=== PATIENT | female | born 2000 | race Caucasian/White ===

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

== ENCOUNTER 2019-01-03 15:40 | Outpatient (CLI) | payer OTHER ==
--- NOTE | 2019-01-03 16:37 | XRAY Report ---
Reason: LOW BACK PAIN Procedure Date: 01/03/2019 Accession Number: [id number] / [id number] Procedure: WCP - Lumbar Spine 2 View CPT Code: FULL RESULT: EXAM: LUMBOSACRAL SPINE RADIOGRAPHY EXAM DATE: 01/03/2019 03:47 PM. CLINICAL HISTORY: LOW BACK PAIN. COMPARISONS: Reformatted images CT abdomen and pelvis 02/08/2018 TECHNIQUE: 2 views. FINDINGS: Alignment: Normal. No spondylolisthesis or scoliosis. Bones: No fractures or bone lesions. Disks: Disk heights are maintained. Facets: No degenerative changes. Sacroiliac Joints: Unremarkable. Soft Tissues: Copious fecal material throughout the colon. IMPRESSION: Negative 2 view lumbar spine radiography. Copious fecal material throughout the colon. RADIA
== END 2019-01-03 15:41 | disposition home or self-care (01) ==
LOC: DI.WCP 15:40
PROVIDERS: ATTEND Family Medicine
DX: M54.5 Low back pain (principal)
CPT/HCPCS: 72100

== ENCOUNTER 2019-03-20 08:40 | Outpatient (CLI) | payer OTHER ==
[2019-03-20 19:15] LABS: H. PYLORIS ANTIGEN STL NEGATIVE (Negative)
== END 2019-03-20 08:41 | disposition home or self-care (01) ==
LOC: LAB.R 08:40
PROVIDERS: ATTEND Family Medicine
DX: R19.7 Diarrhea, unspecified (principal)
CPT/HCPCS: 81599; 83630; 87045; 87046; 87177; 87209; 87329; 87338; 87493

== ENCOUNTER 2019-03-22 14:58 | Emergency (ER) | payer OTHER ==
[2019-03-22 15:32] LABS: BASOPHILS % (AUTO) 0.8 %; EOSINOPHILS # (AUTO) 0.1 10^3/uL (0.0-0.7); EOSINOPHILS % (AUTO) 2.4 %; HGB - HEMOGLOBIN 13.6 g/dL (12.0-16.0); LYMPHOCYTES # (AUTO) 1.7 10^3/uL (1.5-3.5); LYMPHOCYTES % (AUTO) 34.8 %; MEAN CORPUSCULAR HEMOGLOBIN 30.6 pg (27.0-31.0); MEAN CORPUSCULAR HGB CONC 33.9 g/dL (32.0-36.0); MEAN CORPUSCULAR VOLUME 90.3 fL (81.0-99.0); MEAN PLATELET VOLUME 7.4 fL (7.9-10.8); MONOCYTES # (AUTO) 0.4 10^3/uL (0.0-1.0); MONOCYTES % (AUTO) 7.5 %; NEUTROPHILS # (AUTO) 2.6 10^3/uL (1.5-6.6); NEUTROPHILS % (AUTO) 54.5 %; PLT - PLATELET COUNT 273 10^3/uL (130-450); RED BLOOD COUNT 4.43 10^6/uL (4.20-5.40); RED CELL DISTRIBUTION WIDTH 12.4 % (12.0-15.0); WHITE BLOOD COUNT 4.8 x10^3/uL (4.8-10.8)
[2019-03-22 15:34] LABS: BILIRUBIN,URINE NEGATIVE (NEGATIVE); GLUCOSE, URINE (UA) NEGATIVE (NEGATIVE); KETONES,URINE (UA) NEGATIVE (NEGATIVE); LEUKOCYTE ESTERASE, URINE NEGATIVE (NEGATIVE); NITRITE,URINE NEGATIVE (NEGATIVE); OCCULT BLOOD,URINE SMALL (NEGATIVE); PH,URINE 6.5 PH (5.0-7.5); PROTEIN,URINE NEGATIVE (NEGATIVE); UROBILINOGEN,URINE 0.2 (NORMAL) E.U./dL (NORMAL)
[2019-03-22 15:36] LABS: CLARITY,URINE CLEAR (CLEAR)
[2019-03-22 15:42] LABS: HCG UR QUAL NEGATIVE
[2019-03-22 15:47] LABS: BACTERIA,URINE Few /HPF (None Seen); MUCUS,URINE Few Strands; RBC,URINE 0-5 /HPF (0-5); SQUAMOUS EPITHELIAL CELL,UR FEW Squamous (<= Few)
[2019-03-22 15:48] LABS: ALBUMIN 4.8 g/dL (3.2-5.5); ALBUMIN/GLOBULIN RATIO 1.3 (1.0-2.2); BILIRUBIN,TOTAL 0.8 mg/dL (0.2-1.0); CALCIUM 9.9 mg/dL (8.5-10.3); CREATININE 0.6 mg/dL (0.4-1.0); TOTAL PROTEIN 8.5 g/dL (6.7-8.2)
--- NOTE | 2019-03-22 16:09 | ED Physician Documentation ---
PD HPI ABD PAIN - Stated complaint Stated Complaint: LRQ PX - Chief complaint Chief Complaint: Abd Pain - History obtained from History obtained from: Patient - History of Present Illness Timing - onset: Today (abrupt onset this morning of RLQ abd pain.) Timing - duration: Hours (7-8) Timing - details: Abrupt onset, Still present Quality: Cramping, Aching, Pain Location: RLQ Radiation: Lower back (had had lower back pain for several days). No: Right flank Improved by: Laying still. No: Eating, Position Worsened by: Moving, Palpation. No: Eating, Breathing, Position Associated symptoms: Nausea, Vomiting, Diarrhea (few episodes of loose stool today). No: Fever, Dysuria, Vaginal bleeding, Vaginal dc Similar symptoms before: Has not had sx before (has recurrent lower abd and pelvic pains due to endometriosis, with prior laparoscopy in [place], with multiple sites ablated. Is on waiting list to see a specialist in [place] about repeat surgery; their appt is in August.) Review of Systems Constitutional: denies: Fever, Chills : reports: LMP (6-7 months ago due to oral hormones (purposefully suppressing menses).). denies: Dysuria, Frequency, Discharge Skin: denies: Rash, Lesions Musculoskeletal: reports: Back pain (for few days). denies: Neck pain Neurologic: denies: Generalized weakness, Focal weakness, Numbness, Near syncope PD PAST MEDICAL HISTORY - Past Medical History Past Medical History: Yes Respiratory: Asthma Endocrine/Autoimmune: None Psych: Depression Other Past Medical History: endometrosis - Past Surgical History Past Surgical History: No HEENT: Myringotomy (tubes) - Present Medications Home Medications: Ambulatory Orders Medication Instructions Recorded Confirmed Albuterol [Ventolin Hfa] 2 puffs INH Q4HR PRN 06/06/14 12/25/15 Fluoxetine HCl [Prozac] 40 mg PO DAILY 08/14/15 12/25/15 Montelukast Sodium [Singulair] 10 mg PO DAILY 08/14/15 12/25/15 Neomycin/Polymyx/Hc Otic Drops 4 drops OT TID #1 bottle 01/31/18 [Cortisporin Ear Susp] Ondansetron Odt [Zofran] 4 mg TL Q6H PRN #20 tablet 02/06/18 Ondansetron Odt [Zofran] 4 mg TL Q6H PRN #10 tablet 02/08/18 Cephalexin [Keflex] 500 mg PO TID #30 capsule 03/22/19 Hydrocodone/Acetaminophen [[place] 1 each PO Q6H PRN #20 tablet 03/22/19 5-325 Tablet] Ondansetron Odt [Zofran] 4 mg TL Q6H PRN #10 tablet 03/22/19 - Allergies Allergies/Adverse Reactions: Allergies Allergy/AdvReac Type Severity Reaction Status Date / Time No Known Drug Allergies Allergy Verified 02/05/18 20:14 - Social History Does the pt smoke?: No Smoking Status: Never smoker Does the pt drink ETOH?: Yes Does the pt have substance abuse?: No - Immunizations Immunizations are current?: Yes - POLST Patient has POLST: No PD ED PE NORMAL - Vitals Vital signs reviewed: Yes - General General: Alert and oriented X 3, Well developed/nourished, Other (appears in considerable pain.) - Neck Neck: Supple, no meningeal sign, No adenopathy - Cardiac Cardiac: RRR, No murmur - Respiratory Respiratory: Clear bilaterally - Abdomen Abdomen: Normal bowel sounds, Soft, Non distended, No organomegaly, Other (tender RLQ with local guarding and some percussion tenderness. no rebound tenderness. ) - Female Female : Deferred - Rectal Rectal: Deferred - Back Back: No spinal TTP, Other (mild CVA tenderness bilaterally.) - Derm Derm: Normal color, Warm and dry, No rash Results - Vitals Vitals: Vital Signs - 24 hr 03/22/19 03/22/19 03/22/19 15:02 16:45 17:45 Temperature 36.8 C Heart Rate 68 72 76 Respiratory 16 14 14 Rate Blood Pressure 114/59 L 112/67 112/64 O2 Saturation 99 97 99 03/22/19 03/22/19 19:20 21:21 Temperature 36.7 C Heart Rate 81 80 Respiratory 14 16 Rate Blood Pressure 117/51 L 119/60 O2 Saturation 97 100 Oxygen O2 Source Room air - Labs Labs: Laboratory Tests 03/22/19 03/22/19 03/22/19 15:25 15:25 15:27 WBC 4.8 RBC 4.43 Hgb 13.6 Hct 40.0 MCV 90.3 MCH 30.6 MCHC 33.9 RDW 12.4 Plt Count 273 MPV 7.4 L Neut # (Auto) 2.6 Lymph # (Auto) 1.7 [place] # (Auto) 0.4 Eos # (Auto) 0.1 Baso # (Auto) 0.0 Absolute Nucleated RBC 0.00 Nucleated RBC % 0.0 Sodium Potassium Chloride Carbon Dioxide Anion Gap BUN Creatinine Estimated GFR (MDRD) Glucose Calcium Total Bilirubin AST ALT Alkaline Phosphatase Total Protein Albumin Globulin Albumin/Globulin Ratio Lipase Urine Color YELLOW Urine Clarity CLEAR Urine pH 6.5 Ur Specific [place] 1.010 1.010 Urine Protein NEGATIVE Urine Glucose (UA) NEGATIVE Urine Ketones NEGATIVE Urine Occult Blood SMALL H Urine Nitrite NEGATIVE Urine Bilirubin NEGATIVE Urine Urobilinogen 0.2 (NORMAL) Ur Leukocyte Esterase NEGATIVE Urine RBC 0-5 Urine WBC 4-5 Ur Squamous Epith Cells FEW Squamous Urine Bacteria Few Urine Mucus Few Strands Ur Microscopic Review INDICATED Urine Culture Comments NOT INDICATED Urine HCG, Qual NEGATIVE 03/22/19 15:27 WBC RBC Hgb Hct MCV MCH MCHC RDW Plt Count MPV Neut # (Auto) Lymph # (Auto) [place] # (Auto) Eos # (Auto) Baso # (Auto) Absolute Nucleated RBC Nucleated RBC % Sodium 141 Potassium 4.1 Chloride 102 Carbon Dioxide 27 Anion Gap 12.0 BUN 12 Creatinine 0.6 Estimated GFR (MDRD) 129 Glucose 90 Calcium 9.9 Total Bilirubin 0.8 AST 17 ALT 10 Alkaline Phosphatase 38 L Total Protein 8.5 H Albumin 4.8 Globulin 3.7 Albumin/Globulin Ratio 1.3 Lipase 27 Urine Color Urine Clarity Urine pH Ur Specific [place] Urine Protein Urine Glucose (UA) Urine Ketones Urine Occult Blood Urine Nitrite Urine Bilirubin Urine Urobilinogen Ur Leukocyte Esterase Urine RBC Urine WBC Ur Squamous Epith Cells Urine Bacteria Urine Mucus Ur Microscopic Review Urine Culture Comments Urine HCG, Qual - Rads (name of study) pelvic and abd U/S Radiology: Prelim report reviewed (normal ovaries and uterus. IUD in place. ), EMP read contemporaneously, See rad report abd/pelvic CT Radiology: Prelim report reviewed (normal appendix. No hydronephrosis nor signs of stones. There is variable dye patchy in both kidneys c/w pyelonephritis.), See rad report PD MEDICAL DECISION MAKING - ED course Complexity details: reviewed results (Pelvic U/S is normal, and abd US did not see appendix. Still no answer, so discussed with pt/mom and will get CT scan. This did not show abrupt change. There is finding c/w pyelonephritis and will treat for that. UA is not positive though. I still don't know if that accounts for pain today. Consider endometrioma on bowel giving the pain and diarrhea. ALternatively, viral GE but symptoms seem extreme for that. ), considered differential (considerable pain RLQ: consider stone, UTI, ovarian cyst/torsion/rupture, appy, endometriosal implant on bowel, perforation as some possibiliites. ), d/w patient Departure - Departure Disposition: Home, Self Care Clinical Impression: Pyelonephritis, Endometriosis Abdominal pain Qualifiers: Abdominal location: right lower quadrant Qualified Code(s): R10.31 - Right lower quadrant pain Vomiting Qualifiers: Vomiting type: unspecified Vomiting Intractability: non-intractable Nausea presence: with nausea Qualified Code(s): R11.2 - Nausea with vomiting, unspecified Diarrhea Qualifiers: Diarrhea type: unspecified type Qualified Code(s): R19.7 - Diarrhea, unspecified Condition: Stable Record reviewed to determine appropriate education?: Yes Instructions: ED Endometriosis, ED Kidney Infec Female Prescriptions: Cephalexin [Keflex] 500 mg PO TID #30 capsule Hydrocodone/Acetaminophen [[place] 5-325 Tablet] 1 each PO Q6H PRN #20 tablet PRN Reason: Pain Ondansetron Odt [Zofran] 4 mg TL Q6H PRN #10 tablet PRN Reason: Nausea / Vomiting Comments: Your pelvic ultrasound was normal. Your blood test are normal as well. Your CT scan shows some patchy inflammation through the kidneys consistent with pyelonephritis (kidney infection). We will treat that with some antibiotics. Also continue anti-inflammatories such as naproxen or ibuprofen 2-3 times daily with food for the next several days. Use ondansetron if needed for nausea. Hydrocodone if needed for pain and you can take Benadryl along with that to reduce itching. I do not think your intestinal symptoms in the abruptness of the pain are best explainable by the pyelonephritis. I certainly can be some of the back pain you been having. I am concerned your symptoms today may be caused by some endometriosis effect on the intestine or even some intestinal implants. Follow- up with your primary care and/or gynecology for further follow-up. Return if symptoms not controlled by medications at home or worsening other symptoms such as fever, persistent vomiting, increased pain. Discharge Date/Time: 03/22/19 22:10
[2019-03-22] MEDS ORDERED: SODIUM CHLORIDE 0.9% 1,000 ML IV ONE (16:33)
[2019-03-22] MEDS ORDERED: MORPHINE 10 MG/ML VIAL IVP STA ×2 (16:33→17:33)
[2019-03-22] MEDS ORDERED: KETOROLAC 15 MG/ML VIAL IVP STA (16:33)
[2019-03-22] MEDS ORDERED: ONDANSETRON 4 MG/2 ML VIAL IVP STA (16:33)
--- NOTE | 2019-03-22 19:15 | Ultrasound Report ---
Reason: pelvic pain right, abrupt today Procedure Date: 03/22/2019 Accession Number: [id number] / [id number] Procedure: US - Pelvic w/Transvag+Doppler Ltd CPT Code: FULL RESULT: EXAM: PELVIC ULTRASOUND WITH DOPPLERS CLINICAL HISTORY: Right lower quadrant pain COMPARISON: None. TECHNIQUE: Realtime transabdominal imaging performed to identify the uterus and adnexa and as an overview of other pelvic structures, followed by transvaginal imaging for better assessment of the endometrium and adnexa, with static image documentation. Color flow imaging and Doppler spectral analysis was performed to evaluate blood flow to the ovaries given pelvic pain and clinical concern for ovarian torsion. FINDINGS: Uterus: 7.3 x 2.6 x 4.5 cm. Anteverted position. Normal overall size and echotexture. Masses: None. Endometrium: Intrauterine device in appropriate position in the endometrial canal. Cervix: Unremarkable. Right Ovary: 4.2 x 2.1 x 3.1 cm, volume 14.2 cc. Normal echotexture. Arterial and venous blood flow are present. Multiple follicles noted, all within 2 cm. Adnexa are unremarkable. Left Ovary: 4 x 2.8 x 3.7 cm, volume 21.3 cc. Normal echotexture. Arterial and venous blood flow are present. Multiple follicles noted, all within 2 cm. Adnexa are unremarkable. Free Fluid: None. Other: None. IMPRESSION: 1. Normal pelvic ultrasound. Intrauterine device is in appropriate position within the endometrial canal. 2. Arterial and venous blood flow are present to the ovaries bilaterally. 3. No adnexal mass. No free fluid. RADIA
--- NOTE | 2019-03-22 19:17 | Ultrasound Report ---
Reason: RLQ pain today, abrupt; look for appendix Procedure Date: 03/22/2019 Accession Number: [id number] / [id number] Procedure: US - Abdomen Limited CPT Code: FULL RESULT: EXAM: ABDOMEN ULTRASOUND LIMITED, RUQ EXAM DATE: 03/22/2019 06:08 PM. CLINICAL HISTORY: Right lower quadrant pain. COMPARISON: None. TECHNIQUE: Real-time scanning was performed with static images obtained. FINDINGS: Right lower quadrant: Appendix not visualized. No focal fluid collection. Normal peristaltic bowel loops seen in the right lower quadrant. Marked rebound sonographic tenderness elicited in RLQ. No lymphadenopathy. IMPRESSION: Normal appendix not visualized. However overall findings do not go in favor of inflammation in right lower quadrant. No focal food collection. No lymphadenopathy. Marked rebound sonographic tenderness elicited in RLQ. RADIA
[2019-03-22] MEDS ORDERED: HYDROmorphone 1 MG/ML CARPUJECT IVP STA (19:45)
[2019-03-22] MEDS ORDERED: diphenhydrAMINE INJ 50 MG/ML VIAL ONE (20:21)
[2019-03-22] MEDS ORDERED: diphenhydrAMINE INJ 50 MG/ML VIAL IVP STA ×2 (20:28→21:10)
[2019-03-22] MEDS ORDERED: IOVERSOL 320 100 ML VIAL IVP ONE (20:49)
--- NOTE | 2019-03-22 21:09 | CT Report ---
Reason: RLQ pain onset today Procedure Date: 03/22/2019 Accession Number: [id number] / [id number] Procedure: CT - Abdomen/Pelvis W CPT Code: FULL RESULT: EXAM: CT ABDOMEN AND PELVIS EXAM DATE: 03/22/2019 08:46 PM. CLINICAL HISTORY: Right lower quadrant abdominal pain COMPARISONS: ABDOMEN/PELVIS W/ 02/08/2018 12:14 PM. TECHNIQUE: Routine helical CT imaging was performed through the abdomen and pelvis. IV contrast: 100 well Optiray 320. Enteric contrast: No. Reconstructions: Coronal and sagittal. In accordance with CT protocol optimization, one or more of the following dose reduction techniques were utilized for this exam: automated exposure control, adjustment of mA and/or KV based on patient size, or use of iterative reconstructive technique. FINDINGS: ABDOMEN: Liver: No significant abnormality. Stomach/Distal Esophagus: No significant abnormality. Gallbladder: No significant abnormality. Bile Ducts: No significant abnormality. Pancreas: No significant abnormality. Spleen: No significant abnormality. Kidneys: Multifocal scattered areas of patchy diminished enhancement in the kidneys bilaterally are noted, right greater than left. No suspicious solid appearing lesion. No hydronephrosis. Adrenals: No significant abnormality. Bowel: No obstruction. Average fecal residual. Appendix: Normal. Lymph Nodes: No pathologically enlarged nodes. Vasculature: Normal caliber aorta. Fluid: No significant free fluid. Abdominal Wall: No significant abnormality. Other: No significant abnormality. PELVIS: Uterus and Ovaries: IUD satisfactory in appearance. No significant abnormality. Bladder: No significant abnormality. Lymph Nodes: No pathologically enlarged nodes. Fluid: No significant free fluid. Other: None. BONES: No suspicious bony lesions. LOWER CHEST: No significant consolidation or effusion. IMPRESSION: 1. Scattered patchy areas of diminished and has over the kidneys bilateral, representing pyelonephritis. There is no hydronephrosis demonstrated. 2. Appendix is normal. There is no bowel obstruction. 3. Normal appearance of the uterus and ovaries. RADIA
[2019-03-22 21:22] VITALS: BP 119/60
[2019-03-22] MEDS ORDERED: cefTRIAXone 1 GM VIAL IVP STA (21:45)
[2019-03-22] MEDS ORDERED: HYDROcod/ACET 5/325 Prepack 4 PO STA (21:46)
[2019-03-22] MEDS ORDERED: ONDANSETRON ODT 4 MG Prepack 2 TL PRN (21:46)
== END 2019-03-22 22:10 | disposition home or self-care (01) ==
LOC: ED 14:58
DX: N12 Tubulo-interstitial nephritis, not specified as acute or chronic (principal); N80.9 Endometriosis, unspecified; R11.2 Nausea with vomiting, unspecified; R19.7 Diarrhea, unspecified; Z97.5 Presence of (intrauterine) contraceptive device
CPT/HCPCS: 36415; 74177; 76705; 76830; 76856; 80053; 81001; 81025; 83690; 85025; 87086; 93976; 96374; 96375; 96376; 99284; J1170; J1200; Q9967; 81003

== ENCOUNTER 2019-07-10 13:53 | Emergency (ER) | payer OTHER ==
[2019-07-10] MEDS ORDERED: ONDANSETRON 4 MG/2 ML VIAL IVP STA (14:11)
[2019-07-10] MEDS ORDERED: SODIUM CHLORIDE 0.9% 1,000 ML IV STA (14:11)
[2019-07-10 14:34] LABS: BASOPHILS % (AUTO) 0.4 %; EOSINOPHILS # (AUTO) 0.6 10^3/uL (0.0-0.7); EOSINOPHILS % (AUTO) 6.3 %; HGB - HEMOGLOBIN 13.1 g/dL (12.0-16.0); LYMPHOCYTES # (AUTO) 1.1 10^3/uL (1.5-3.5); LYMPHOCYTES % (AUTO) 11.4 %; MEAN CORPUSCULAR HGB CONC 33.2 g/dL (32.0-36.0); MEAN CORPUSCULAR VOLUME 93.1 fL (81.0-99.0); MEAN PLATELET VOLUME 9.2 fL (7.9-10.8); MONOCYTES # (AUTO) 0.6 10^3/uL (0.0-1.0); MONOCYTES % (AUTO) 5.7 %; NEUTROPHILS # (AUTO) 7.6 10^3/uL (1.5-6.6); NEUTROPHILS % (AUTO) 75.7 %; PLT - PLATELET COUNT 302 10^3/uL (130-450); RED BLOOD COUNT 4.23 10^6/uL (4.20-5.40); RED CELL DISTRIBUTION WIDTH 12.5 % (12.0-15.0)
[2019-07-10 14:46] LABS: ALBUMIN 4.1 g/dL (3.2-5.5); BILIRUBIN,TOTAL 0.5 mg/dL (0.2-1.0); CALCIUM 9.5 mg/dL (8.5-10.3); CREATININE 0.7 mg/dL (0.4-1.0); TOTAL PROTEIN 8.3 g/dL (6.7-8.2)
[2019-07-10] MEDS ORDERED: METOCLOPRAMIDE 10 MG/2 ML VIAL IVP STA (14:58)
[2019-07-10] MEDS ORDERED: MORPHINE 2 MG/ML CARPUJECT IVP STA (14:58)
--- NOTE | 2019-07-10 15:01 | ED Physician Documentation ---
History of Present Illness - Stated complaint Stated Complaint: SOA/VOMITING - Chief complaint Chief Complaint: Abd Pain - Additonal information Additional information: This is a 19-year-old female with a history of endometriosis who presents with abdominal pain and nausea and vomiting. Patient is 1 week out from a robotic laparoscopy with resection of endometriosis which apparently was found throughout her peritoneal cavity. She has been on Dilaudid and she had a lidocaine pain pump present until yesterday when it was removed by her mother because it was leaking. For the last several days she has had abdominal distention, pain, and vomiting. Today she has had multiple episodes of nonbloody vomiting and is on been unable to hold down fluids. She has been taking tramadol which helped somewhat, but she is still in significant pain which is diffuse and somewhat migratory, right now in the left lower quadrant and right upper quadrant. She and her mother called their surgeon's office who recommended she come to the emergency department for evaluation. Patient's last bowel movement was yesterday and was a little soft, today she has had several episodes of diarrhea. Her mother, who is a nurse and works with Dr. Tran, is c oncerned she may have an obstruction. Review of Systems Constitutional: denies: Fever Cardiac: denies: Chest pain / pressure Respiratory: denies: Cough GI: reports: Abdominal Pain, Abdominal Swelling, Nausea, Vomiting : denies: Dysuria Endocrine: denies: Easy bruising / bleeding Immunocompromised: denies: Immunocompromised PD PAST MEDICAL HISTORY - Past Medical History Respiratory: Asthma Endocrine/Autoimmune: None Psych: Depression - Past Surgical History Past Surgical History: No HEENT: Myringotomy (tubes) - Present Medications Home Medications: Ambulatory Orders Medication Instructions Recorded Confirmed Albuterol [Ventolin Hfa] 2 puffs INH Q4HR PRN 06/06/14 12/25/15 Fluoxetine HCl [Prozac] 40 mg PO DAILY 08/14/15 12/25/15 Montelukast Sodium [Singulair] 10 mg PO DAILY 08/14/15 12/25/15 Neomycin/Polymyx/Hc Otic Drops 4 drops OT TID #1 bottle 01/31/18 [Cortisporin Ear Susp] Ondansetron Odt [Zofran] 4 mg TL Q6H PRN #20 tablet 02/06/18 Ondansetron Odt [Zofran] 4 mg TL Q6H PRN #10 tablet 02/08/18 Cephalexin [Keflex] 500 mg PO TID #30 capsule 03/22/19 Hydrocodone/Acetaminophen [[place] 1 each PO Q6H PRN #20 tablet 03/22/19 5-325 Tablet] Ondansetron Odt [Zofran] 4 mg TL Q6H PRN #10 tablet 03/22/19 Metoclopramide [Reglan] 10 mg PO Q8H PRN #12 tablet 07/10/19 - Allergies Allergies/Adverse Reactions: Allergies Allergy/AdvReac Type Severity Reaction Status Date / Time aripiprazole [From Abilify] Allergy Unknown Verified 03/25/19 08:02 quetiapine Allergy Unknown Verified 03/25/19 08:02 venlafaxine Allergy Unknown Verified 03/25/19 08:02 - Social History Does the pt smoke?: No Smoking Status: Never smoker Does the pt drink ETOH?: Yes Does the pt have substance abuse?: No - Immunizations Immunizations are current?: Yes - POLST Patient has POLST: No PD ED PE NORMAL - Vitals Vital signs reviewed: Yes - General General: Alert and oriented X 3 - HEENT HEENT: Atraumatic - Cardiac Cardiac: RRR - Respiratory Respiratory: No respiratory distress, Clear bilaterally - Abdomen Abdomen: Soft, Other (There are multiple surgical incisional sites which appear very well approximated with no surrounding erythema. These are covered with skin glue. Patient has tenderness in her left lower quadrant and right upper quadrant. The remainder of her abdomen is mildly uncomfortable to palpation) - Derm Derm: Warm and dry - Extremities Extremities: No deformity - Neuro Neuro: Alert and oriented X 3 - Psych Psych: Normal mood, Normal affect Results - Vitals Vitals: Vital Signs - 24 hr 07/10/19 07/10/19 16:02 17:57 Temperature 36.7 C Heart Rate 105 H 84 Respiratory 16 19 Rate Blood Pressure 115/48 L 120/70 O2 Saturation 98 98 Oxygen O2 Source Room air - Labs Labs: Laboratory Tests 07/10/19 07/10/19 07/10/19 14:26 14:26 14:26 WBC 10.0 RBC 4.23 Hgb 13.1 Hct 39.4 MCV 93.1 MCH 31.0 MCHC 33.2 RDW 12.5 Plt Count 302 MPV 9.2 Neut # (Auto) 7.6 H Lymph # (Auto) 1.1 L [place] # (Auto) 0.6 Eos # (Auto) 0.6 Baso # (Auto) 0.0 Absolute Nucleated RBC 0.00 Nucleated RBC % 0.0 Sodium 135 Potassium 4.1 Chloride 97 L Carbon Dioxide 24 Anion Gap 14.0 H BUN 11 Creatinine 0.7 Estimated GFR (MDRD) 107 Glucose 87 Calcium 9.5 Total Bilirubin 0.5 AST 23 ALT 16 Alkaline Phosphatase 37 L Total Protein 8.3 H Albumin 4.1 Globulin 4.2 Albumin/Globulin Ratio 1.0 Lipase 19 L Serum HCG, Qual NEGATIVE Urine Color Urine Clarity Urine pH Ur Specific [place] Urine Protein Urine Glucose (UA) Urine Ketones Urine Occult Blood Urine Nitrite Urine Bilirubin Urine Urobilinogen Ur Leukocyte Esterase Ur Microscopic Review Urine Culture Comments 07/10/19 17:00 WBC RBC Hgb Hct MCV MCH MCHC RDW Plt Count MPV Neut # (Auto) Lymph # (Auto) [place] # (Auto) Eos # (Auto) Baso # (Auto) Absolute Nucleated RBC Nucleated RBC % Sodium Potassium Chloride Carbon Dioxide Anion Gap BUN Creatinine Estimated GFR (MDRD) Glucose Calcium Total Bilirubin AST ALT Alkaline Phosphatase Total Protein Albumin Globulin Albumin/Globulin Ratio Lipase Serum HCG, Qual Urine Color YELLOW Urine Clarity CLEAR Urine pH 6.5 Ur Specific [place] 1.010 Urine Protein NEGATIVE Urine Glucose (UA) NEGATIVE Urine Ketones >=80 H Urine Occult Blood NEGATIVE Urine Nitrite NEGATIVE Urine Bilirubin NEGATIVE Urine Urobilinogen 0.2 (NORMAL) Ur Leukocyte Esterase NEGATIVE Ur Microscopic Review NOT INDICATED Urine Culture Comments NOT INDICATED - Rads (name of study) CT abd/pelvis Radiology: Other (Appendix is dilated to 1 cm and fluid filled. No obstruction. There is an ovarian cyst) PD MEDICAL DECISION MAKING - ED course Complexity details: considered differential (Bowel obstruction, post-surgical pain, ileus, appendicitis, enteritis) ED course: On exam patient is non-toxic appearing. Her abdomen is somewhat distended and d iffusely mildly tender. Pt was given zofran, morphine, and NS. She had continued nausea so reglan was given with good effect. Her CBC is unremarkable, CMP notable for mild hypochloremia likely from dehydration, lipase negative, HCG negative. Pt is overall non-toxic appearing, and I have a suspicion that her symptoms are due to post-operative pain. I discussed the options of observation and PO joelle llenge versus CT, patient and her mother elected for CT. This showed no obstruction, but did show a dilated appendix. Pt does not have specific RLQ tenderness, no leukocytosis,and her symptoms have improved with our treatment. I discussed the case with Dr. Tran, who agrees that acute appendicitis is less likely that post-operative inflammation. After discussing with patient, her mother, and Dr. Tran, we will have patient follow up in this ED or with Dr. Tran tomorrow for a repeat abdominal exam. In the meantime we will treat with reglan, which appears to be more effective than zofran for the patient. I think it is reasonable for her to continue her tramadol for post-operative pain. She will return to the ED with persistent vomiting or worsening pain if this develops in the interim. Prior to discharge pt's HR in 90s, abdomen benign, and she was tolerating PO Departure - Departure Disposition: Home, Self Care Clinical Impression: Abdominal pain Qualifiers: Abdominal location: generalized Qualified Code(s): R10.84 - Generalized abdominal pain Condition: Stable Follow-Up: Chelsea Pena [Other] (Please follow up with Dr. Tran or here in the ED tomorrow for a recheck of your abdomen) Prescriptions: Metoclopramide [Reglan] 10 mg PO Q8H PRN #12 tablet PRN Reason: Nausea / Vomiting Comments: You were seen today for abdominal pain. Your CT scan did not show signs of an obstruction, did show some enlargement of your appendix. It is not clear if this is appendicitis or just inflammation of your appendix from your surgery. Given that you are feeling better, please follow-up with Dr. Tran or return to the emergency department tomorrow For a recheck of your abdomen. If you are developing worsening abdominal pain, persistent vomiting despite the Reglan, or other concerning symptoms please return to the emergency department immediately. Discharge Date/Time: 07/10/19 17:57
[2019-07-10] MEDS ORDERED: IOVERSOL 320 100 ML VIAL IVP ONE ×2 (15:05→16:00)
[2019-07-10 15:15] LABS: HCG,QUALITATIVE BLOOD NEGATIVE
--- NOTE | 2019-07-10 15:57 | CT Report ---
Reason: Abd pain, distension after surg, concern for abd Procedure Date: 07/10/2019 Accession Number: [id number] / [id number] Procedure: CT - Abdomen/Pelvis W CPT Code: FULL RESULT: EXAM: CT ABDOMEN AND PELVIS EXAM DATE: 07/10/2019 03:38 PM. CLINICAL HISTORY: Abd pain, distension after surg, concern for abd. COMPARISONS: ABDOMEN/PELVIS W/ 03/22/2019 8:26 PM. TECHNIQUE: Routine helical CT imaging was performed through the abdomen and pelvis. IV contrast: OPTI 320 90ML. Enteric contrast: No. Reconstructions: Coronal and sagittal. In accordance with CT protocol optimization, one or more of the following dose reduction techniques were utilized for this exam: automated exposure control, adjustment of mA and/or KV based on patient size, or use of iterative reconstructive technique. FINDINGS: Lung Bases: Unremarkable. Liver: Normal. No masses. Gallbladder/Bile Ducts: The gallbladder is distended. Spleen: Normal. Pancreas: Normal. Adrenal Glands: Normal. Kidneys: Normal. No masses or hydronephrosis. Peritoneal Cavity/Bowel: The stomach demonstrates no acute abnormality. No dilated small bowel. There is moderate volume of stool within colon. There is a small amount of free fluid within the pelvis. There is intraperitoneal free air. The appendix is mildly dilated and fluid-filled. It measures 1.0 cm in diameter. Pelvic Organs: There is a 4.3 x 5.4 cm hypodensity within the right adnexa. Intrauterine device is in place. No significant left adnexal abnormalities are seen. The urinary bladder demonstrates no acute abnormality. No enlarged pelvic lymph nodes. Vasculature: No acute vascular abnormalities are seen. Bones: No significant abnormality. Other: None. IMPRESSION: 1. There is intraperitoneal free air. This presumably related to recent surgery. 2. The appendix is dilated up to 1.0 cm and fluid-filled. This could represent appendicitis. There is a small amount of free fluid within the pelvis. 3. There is a 4.3 x 5.4 cm hypodensity within the right adnexa. This is suspicious for an enlarged right ovarian cyst. 4. The gallbladder is distended. 5. No evidence of bowel obstruction. There is moderate volume stool within colon. [facility]
[2019-07-10] MEDS ORDERED: SODIUM CHLORIDE 0.9% 1,000 ML IV ONE (16:05)
[2019-07-10 17:17] LABS: BILIRUBIN,URINE NEGATIVE (NEGATIVE); GLUCOSE, URINE (UA) NEGATIVE (NEGATIVE); KETONES,URINE (UA) >=80 mg/dL (NEGATIVE); LEUKOCYTE ESTERASE, URINE NEGATIVE (NEGATIVE); NITRITE,URINE NEGATIVE (NEGATIVE); OCCULT BLOOD,URINE NEGATIVE (NEGATIVE); PH,URINE 6.5 PH (5.0-7.5); PROTEIN,URINE NEGATIVE (NEGATIVE); UROBILINOGEN,URINE 0.2 (NORMAL) E.U./dL (NORMAL)
[2019-07-10 17:18] LABS: CLARITY,URINE CLEAR (CLEAR)
[2019-07-10 17:58] VITALS: BP 120/70
== END 2019-07-10 17:57 | disposition home or self-care (01) ==
LOC: ED 13:53
DX: G89.18 Other acute postprocedural pain (principal); R10.84 Generalized abdominal pain
CPT/HCPCS: 36415; 74177; 80053; 81003; 83690; 84703; 85025; 96361; 96374; 96375; 99284; J2765; Q9967; 81001; 87086

== ENCOUNTER 2019-07-11 10:59 | Inpatient (IN) | payer OTHER ==
[2019-07-11] MEDS ORDERED: NEOMYCIN/POLYMYX/HC OTIC DROPS EACHEAR PRN (11:17)
[2019-07-11] MEDS ORDERED: ALBUTEROL NEB 2.5 MG/3 ML INH PRN (11:17)
[2019-07-11] MEDS ORDERED: PANTOPRAZOLE 80 MG in SODIUM CHLORIDE 0.9% 100ML 100 ML IV ONE (11:20)
[2019-07-11] MEDS ORDERED: PROMETHAZINE INJ 25 MG in SODIUM CHLORIDE 0.9% 50 ML IV PRN (11:23)
[2019-07-11 11:33] LABS: BASOPHILS % (AUTO) 0.5 %; EOSINOPHILS # (AUTO) 0.3 10^3/uL (0.0-0.7); EOSINOPHILS % (AUTO) 3.8 %; HGB - HEMOGLOBIN 12.1 g/dL (12.0-16.0); LYMPHOCYTES # (AUTO) 0.8 10^3/uL (1.5-3.5); LYMPHOCYTES % (AUTO) 9.5 %; MEAN CORPUSCULAR HEMOGLOBIN 31.1 pg (27.0-31.0); MEAN CORPUSCULAR HGB CONC 33.7 g/dL (32.0-36.0); MEAN CORPUSCULAR VOLUME 92.3 fL (81.0-99.0); MONOCYTES # (AUTO) 0.4 10^3/uL (0.0-1.0); MONOCYTES % (AUTO) 5.3 %; NEUTROPHILS # (AUTO) 6.8 10^3/uL (1.5-6.6); NEUTROPHILS % (AUTO) 80.5 %; PLT - PLATELET COUNT 262 10^3/uL (130-450); RED BLOOD COUNT 3.89 10^6/uL (4.20-5.40); RED CELL DISTRIBUTION WIDTH 12.1 % (12.0-15.0); WHITE BLOOD COUNT 8.4 x10^3/uL (4.8-10.8)
[2019-07-11 11:53] LABS: ALBUMIN 3.9 g/dL (3.2-5.5); BILIRUBIN,TOTAL 0.5 mg/dL (0.2-1.0); CALCIUM 9.3 mg/dL (8.5-10.3); CREATININE 0.7 mg/dL (0.4-1.0); TOTAL PROTEIN 7.9 g/dL (6.7-8.2)
[2019-07-11] MEDS ORDERED: D5NS W/20 MEQ KCL 1,000 ML IV SCH (12:00)
[2019-07-11] MEDS ORDERED: FLUoxetine 10 MG CAPSULE PO SCH (12:00)
[2019-07-11] MEDS ORDERED: cefTRIAXone 1 GM in SODIUM CHLORIDE 0.9% MINIBAG 100 ML IV SCH (12:00)
--- NOTE | 2019-07-11 12:19 | HISTORY & PHYSICAL EXAMINATION ---
Chief Complaint - Chief Complaint Chief Complaint: Nausea and vomiting Abdominal Pain HPI - Admitted From Admitted from: Direct admit - History Obtained From Records Reviewed: Old records reviewed History obtained from: Patient, Family Exam limitations: No limitations - History of Present Illness Severity at the worst: Severe Pain Quality: Sharp, Dull, Aching, Cramping, Throbbing Context-Pain started w/: Other (post surgical) Timing: Constant Duration: Days: (7 but with significant exacerbation of symptoms over the last 3 days) Improved with: Nothing Worsened by: Nothing Associated symptoms: Diaphoresis, Nausea, Vomiting, Feeling faint / dizzy, General Weakness HPI Comment/Other: Elizabeth is a wonderful 19 year old lady who is 1 week status post Laparoscopic treatment of endometriosis. The procedure was done in [place]. She spent one night in the hospital and then one night in a local hotel. She was discharged with a lidocaine pump, pain medication and nausea medication. She has been progressively uncomfortable over the last few days and has been unable to keep any food or liquids down. She was seen in the ED last PM and had a CT scan that was suspicious for possible early appendicitis. The appendix was noted to be upper limits of normal in size but without evidence of inflammation. Elizabeth denies any specific right lower quadrant pain. She reports she has pain in the pelvis on both sides but not more on one side than the other. She has passed minimal flatus at home. She has been taking stool softeners daily and has had very little soft stool ouput. PMH/PSH - Past Medical History Respiratory: positive: Asthma Endocrine/Autoimmune: positive: None Psych: positive: Depression MRSA Hx?: No - Past Surgical History HEENT: positive: Myringotomy (tubes) Social & Family Hx - Social History Does the pt smoke?: No Smoking Status: Never smoker Does the pt drink ETOH?: Yes Does the pt have substance abuse?: No - POLST Patient has POLST: No Meds/Allgy - Home Medications Home Medications: Ambulatory Orders Medication Instructions Recorded Confirmed Albuterol [Ventolin Hfa] 2 puffs INH Q4HR PRN 06/06/14 12/25/15 Fluoxetine HCl [Prozac] 40 mg PO DAILY 08/14/15 12/25/15 Montelukast Sodium [Singulair] 10 mg PO DAILY 08/14/15 12/25/15 Neomycin/Polymyx/Hc Otic Drops 4 drops OT TID #1 bottle 01/31/18 [Cortisporin Ear Susp] Ondansetron Odt [Zofran] 4 mg TL Q6H PRN #20 tablet 02/06/18 Ondansetron Odt [Zofran] 4 mg TL Q6H PRN #10 tablet 02/08/18 Cephalexin [Keflex] 500 mg PO TID #30 capsule 03/22/19 Hydrocodone/Acetaminophen [[place] 1 each PO Q6H PRN #20 tablet 03/22/19 5-325 Tablet] Ondansetron Odt [Zofran] 4 mg TL Q6H PRN #10 tablet 03/22/19 Metoclopramide [Reglan] 10 mg PO Q8H PRN #12 tablet 07/10/19 - Allergies Allergies/Adverse Reactions: Allergies Allergy/AdvReac Type Severity Reaction Status Date / Time aripiprazole [From Abilify] Allergy Unknown Verified 03/25/19 08:02 quetiapine Allergy Unknown Verified 03/25/19 08:02 venlafaxine Allergy Unknown Verified 03/25/19 08:02 Review of Systems - Constitutional Constitutional: reports: Fatigue, Chills, Malaise, Weakness, Diaphoresis - Eyes Eyes: denies: Pain, Blurred vision - Ears, Nose & Throat Ears, Nose & Throat: reports: Vertigo. denies: Ear pain, Tinnitus - Cardiovascular Cariovascular: reports: Lightheadedness. denies: Irregular heart rate, Palpitations, Chest pain, Edema - Respiratory Respiratory: denies: Cough, Sputum production, Wheezing, Snoring - Gastrointestinal Gastrointestinal: reports: Abdominal pain, Diarrhea. denies: Abdominal distention, Constipation - Genitourinary Genitourinary: denies: Frequency, Urgency - Musculoskeletal Musculoskeletal: denies: Muscle pain, Back pain - Integumentary Integumentary: denies: Rash, Pruritis, Lesions - Neurological Neurological: denies: General weakness, Focal weakness, Headache, Dizziness - Psychiatric Psychiatric: denies: Depression, Anxiety - Endocrine Endocrine: denies: Polyuria, Polydypsia - Hematologic/Lymphatic Hematologic/Lymphatic: denies: Anemia, Bruising - All Other Systems All Other Systems: reports: Reviewed and negative Exam - Vital Signs Reviewed Vital Signs: Yes Vital Signs: Vital Signs x48h Temp Pulse Resp BP Pulse Ox 07/11/19 11:30 37.2 C 82 14 130/67 96 - Physical Exam General Appearance: positive: Alert, Moderate distress, Lethargic Eyes Bilateral: positive: Normal inspection, PERRL, EOMI ENT: positive: ENT inspection nml, Pharynx nml, Dry mucous membranes Neck: positive: Nml inspection, Thyroid nml, No JVD, Trachea midline. negative: Lymphadenopathy (R), Lymphadenopathy (L) Respiratory: positive: Chest non-tender, No respiratory distress, Breath sounds nml. negative: Wheezes Cardiovascular: positive: Regular rate & rhythm, No murmur Peripheral Pulses: positive: 2+ Abdomen: positive: Tenderness, Other (Appropriately tender to palpation. No rebound or guarding. Incisions are clean and without erythema or drainage. Minimal bruising. Hypoactive bowel sounds.) Back: negative: CVA tenderness (R), CVA tenderness (L) Skin: positive: Color nml, No rash Extremities: positive: Non-tender, Nml appearance Results - Lab Results Fish Bones: 07/11/19 11:25 07/11/19 11:25 Other Lab Results: Lab Results x24hrs 07/11/19 07/11/19 Range/Units 11:25 11:25 WBC 8.4 (4.8-10.8) x10^3/uL RBC 3.89 L (4.20-5.40) 10^6/uL Hgb 12.1 (12.0-16.0) g/dL Hct 35.9 L (37.0-47.0) % MCV 92.3 (81.0-99.0) fL MCH 31.1 H (27.0-31.0) pg MCHC 33.7 (32.0-36.0) g/dL RDW 12.1 (12.0-15.0) % Plt Count 262 (130-450) 10^3/uL MPV 9.0 (7.9-10.8) fL Neut # (Auto) 6.8 H (1.5-6.6) 10^3/uL Lymph # (Auto) 0.8 L (1.5-3.5) 10^3/uL [place] # (Auto) 0.4 (0.0-1.0) 10^3/uL Eos # (Auto) 0.3 (0.0-0.7) 10^3/uL Baso # (Auto) 0.0 (0.0-0.1) 10^3/uL Absolute Nucleated RBC 0.00 x10^3/uL Nucleated RBC % 0.0 /100WBC Sodium 135 (135-145) mmol/L Potassium 4.0 (3.5-5.0) mmol/L Chloride 102 (101-111) mmol/L Carbon Dioxide 17 L (21-32) mmol/L Anion Gap 16.0 H (6-13) BUN 7 (6-20) mg/dL Creatinine 0.7 (0.4-1.0) mg/dL Estimated GFR (MDRD) 107 (>89) Glucose 76 (70-100) mg/dL Calcium 9.3 (8.5-10.3) mg/dL Total Bilirubin 0.5 (0.2-1.0) mg/dL AST 19 (10-42) IU/L ALT 14 (10-60) IU/L Alkaline Phosphatase 37 L (42-121) IU/L Total Protein 7.9 (6.7-8.2) g/dL Albumin 3.9 (3.2-5.5) g/dL Globulin 4.0 (2.1-4.2) g/dL Albumin/Globulin Ratio 1.0 (1.0-2.2) - Diagnostic Imaging Results Diagnostic Imaging Results Comments: Final Report PT NAME: MANA VERONICA MR#: [id number] REG ER/ED AGE: 19 CI DT/TM: 07/10/19 PCP: Alexi Peguero DO : 2000 ATT: SEX: F ORD: Jorje Schreiber i, MD EXAM: CT/ABPEW ([id number]) Reason: Abd pain, distension after surg, concern for abd Procedure Date: 07/10/2019 Accession Number: [id number] / [id number] Procedure: CT - Abdomen/Pelvis W CPT Code: FULL RESULT: EXAM: CT ABDOMEN AND PELVIS EXAM DATE: 07/10/2019 03:38 PM. CLINICAL HISTORY: Abd pain, distension after surg, concern for abd. COMPARISONS: ABDOMEN/PELVIS W/ 03/22/2019 8:26 PM. TECHNIQUE: Routine helical CT imaging was performed through the abdomen and pelvis. IV contrast: OPTI 320 90ML. Enteric contrast: No. Reconstructions: Coronal and sagittal. In accordance with CT protocol optimization, one or more of the following dose reduction techniques were utilized for this exam: automated exposure control, adjustment of mA and/or KV based on patient size, or use of iterative reconstructive technique. FINDINGS: Lung Bases: Unremarkable. Liver: Normal. No masses. Gallbladder/Bile Ducts: The gallbladder is distended. Spleen: Normal. Pancreas: Normal. Adrenal Glands: Normal. Kidneys: Normal. No masses or hydronephrosis. Peritoneal Cavity/Bowel: The stomach demonstrates no acute abnormality. No dilated small bowel. There is moderate volume of stool within colon. There is a small amount of free fluid within the pelvis. There is intraperitoneal free air. The appendix is mildly dilated and fluid-filled. It measures 1.0 cm in diameter. Pelvic Organs: There is a 4.3 x 5.4 cm hypodensity within the right adnexa. Intrauterine device is in place. No significant left adnexal abnormalities are seen. The urinary bladder demonstrates no acute abnormality. No enlarged pelvic lymph nodes. Vasculature: No acute vascular abnormalities are seen. Bones: No significant abnormality. Other: None. IMPRESSION: 1. There is intraperitoneal free air. This presumably related to recent surgery. 2. The appendix is dilated up to 1.0 cm and fluid-filled. This could represent appendicitis. There is a small amount of free fluid within the pelvis. 3. There is a 4.3 x 5.4 cm hypodensity within the right adnexa. This is suspicious for an enlarged right ovarian cyst. 4. The gallbladder is distended. 5. No evidence of bowel obstruction. There is moderate volume stool within colon. [facility] Nurse Executive: Reading Radiologist: Doni Dumont MD Releasing Radiologist: Doni Dumont MD Released Date Time: 07/10/19 9590 Impression/Plan - Problem List Problem List: Intractable nausea and vomiting following laparoscopy with resection of endometrial implants. No evidence of acute infectious process though the CT is a bit concerning. The mass in the adnexa could also represent a hematoma in this setting. We will admit for hydration and supportive care with IV antibiotics, pain control and anti-emetics. I am concerned about her nutritional status as she has had no significant caloric intake in 7 days. We will start peripheral nutrition. Lab studies are encouraging.
[2019-07-11] MEDS: PANTOPRAZOLE 40 MG VIAL IVP SCH (12:42)
[2019-07-11] MEDS ORDERED: SODIUM CHLORIDE 0.9% 1,000 ML IV ONE (12:48)
[2019-07-11] MEDS: KETOROLAC 30 MG/ML VIAL IVP PRN ×2 (12:48→20:26)
[2019-07-11] MEDS: ONDANSETRON 4 MG/2 ML VIAL IVP PRN ×3 (13:04→18:15)
[2019-07-11] MEDS: ACETAMINOPHEN 1,000 MG/100 ML 100 ML IV SCH ×2 (13:19→18:16)
[2019-07-11] MEDS: PIPERACILLIN/TAZOBACTAM 3.375 GM in SODIUM CHLORIDE 0.9% MINIBAG 100 ML IV SCH ×2 (13:42→20:26)
[2019-07-11] MEDS ORDERED: HYDROmorphone PCA 20MG/100ML IV PRN (14:52)
[2019-07-11] MEDS: LORazepam 2 MG/ML VIAL IVP PRN ×2 (15:00→21:10)
[2019-07-11] MEDS: SODIUM CHLORIDE FLUSH 0.9% 10 ML SYRINGE IVP PRN (15:01)
[2019-07-11] MEDS: SODIUM CHLORIDE FLUSH 0.9% 10 ML SYRINGE IVP SCH (16:37)
[2019-07-11] MEDS: FAT EMULSION 20% 250 ML IV SCH (20:23)
[2019-07-11] MEDS: PPN (CLINIMIX E 4.25/5) 2,000 ML with MULTIVITAMIN 10 ML, TRACE ELEMENTS V CONC 1 ML IV SCH ×3 (20:23)
[2019-07-11] MEDS: PROMETHAZINE INJ 25 MG in SODIUM CHLORIDE 0.9% 50 ML IV PRN (20:57)
[2019-07-12] MEDS: ACETAMINOPHEN 1,000 MG/100 ML 100 ML IV SCH ×4 (00:57→17:50)
[2019-07-12] MEDS: SODIUM CHLORIDE 0.9% 500 ML IV PRN ×2 (00:57→19:37)
[2019-07-12] MEDS: ONDANSETRON 4 MG/2 ML VIAL IVP PRN ×4 (01:20→19:37)
[2019-07-12] MEDS: PIPERACILLIN/TAZOBACTAM 3.375 GM in SODIUM CHLORIDE 0.9% MINIBAG 100 ML IV SCH ×2 (01:25→06:59)
[2019-07-12] MEDS: SODIUM CHLORIDE FLUSH 0.9% 10 ML SYRINGE IVP SCH ×3 (01:25→15:48)
[2019-07-12] MEDS: KETOROLAC 30 MG/ML VIAL IVP PRN ×3 (02:15→15:20)
[2019-07-12] MEDS: PROMETHAZINE INJ 25 MG in SODIUM CHLORIDE 0.9% 50 ML IV PRN (02:17)
[2019-07-12 05:58] LABS: ALBUMIN 3.1 g/dL (3.2-5.5); ALBUMIN/GLOBULIN RATIO 0.9 (1.0-2.2); ALKALINE PHOSPHATASE 34 IU/L (42-121); ALT ALANINE AMINOTRANSFERASE 11 IU/L (10-60); AST ASPARTATE AMINOTRANSFERASE 14 IU/L (10-42); BILIRUBIN,TOTAL < 0.2 mg/dL (0.2-1.0); BUN - BLOOD UREA NITROGEN 7 mg/dL (6-20); CALCIUM 8.9 mg/dL (8.5-10.3); CARBON DIOXIDE - CO2 23 mmol/L (21-32); CHLORIDE 111 mmol/L (101-111); CREATININE 0.6 mg/dL (0.4-1.0); GFR - MDRD 127 (>89); GLUCOSE 114 mg/dL (70-100); MAGNESIUM 1.8 mg/dL (1.7-2.8); PHOSPHORUS 3.3 mg/dL (2.5-4.6); PREALBUMIN 18 mg/dL (18-45); SODIUM 141 mmol/L (135-145); TOTAL PROTEIN 6.4 g/dL (6.7-8.2)
[2019-07-12] MEDS: LORazepam 2 MG/ML VIAL IVP PRN (06:31)
[2019-07-12] MEDS: PANTOPRAZOLE 40 MG VIAL IVP SCH (06:35)
[2019-07-12] MEDS: SODIUM CHLORIDE FLUSH 0.9% 10 ML SYRINGE IVP PRN (06:35)
--- NOTE | 2019-07-12 08:10 | PROVIDER PROGRESS NOTE ---
Subjective - Prog Note Date Prog Note Date: 07/12/19 Prog Note Time: 08:08 - Subjective Pt reports feeling: No change Subjective: Elizabeth had a rough night. A few episodes of vomiting and she remains nauseated. She is "miserable". Doesn't want to use the [employer] because she is concerned it makes her more nauseated. She is up to urinate and urine is clear per report. Pain is reported at about a 6. She is having great difficulty getting comfortable. Objective - Vital Signs/Intake & Output Vital Signs: Vital Signs x48h Temp Pulse Resp BP Pulse Ox 07/12/19 07:30 36.7 C 96 20 133/64 H 98 07/12/19 03:00 16 07/12/19 02:00 16 Intake & Output: Intake & Output 07/09/19 07/10/19 07/11/19 07/12/19 23:59 23:59 23:59 23:59 Intake Total 2601.000 488.5 Balance 2601.000 488.5 - Objective General Appearance: positive: No acute distress Eyes Bilateral: positive: Normal inspection, PERRL, EOMI ENT: positive: No signs of dehydration Neck: positive: Nml inspection, Trachea midline Respiratory: positive: Chest non-tender, No respiratory distress, Breath sounds nml Cardiovascular: positive: No murmur Abdomen: positive: Other (soft, appropriately tender, very few bowel sounds. Incisions are healing.) Skin: positive: Color nml - Lab Results Fish Bones: 07/11/19 11:25 07/12/19 05:35 Other Labs: Lab Results x24hrs 07/12/19 07/11/19 07/11/19 Range/Units 05:35 11:25 11:25 WBC 8.4 (4.8-10.8) x10^3/uL RBC 3.89 L (4.20-5.40) 10^6/uL Hgb 12.1 (12.0-16.0) g/dL Hct 35.9 L (37.0-47.0) % MCV 92.3 (81.0-99.0) fL MCH 31.1 H (27.0-31.0) pg MCHC 33.7 (32.0-36.0) g/dL RDW 12.1 (12.0-15.0) % Plt Count 262 (130-450) 10^3/uL MPV 9.0 (7.9-10.8) fL Neut # (Auto) 6.8 H (1.5-6.6) 10^3/uL Lymph # (Auto) 0.8 L (1.5-3.5) 10^3/uL [place] # (Auto) 0.4 (0.0-1.0) 10^3/uL Eos # (Auto) 0.3 (0.0-0.7) 10^3/uL Baso # (Auto) 0.0 (0.0-0.1) 10^3/uL Absolute Nucleated RBC 0.00 x10^3/uL Nucleated RBC % 0.0 /100WBC Sodium 141 135 (135-145) mmol/L Potassium 3.9 4.0 (3.5-5.0) mmol/L Chloride 111 102 (101-111) mmol/L Carbon Dioxide 23 17 L (21-32) mmol/L Anion Gap 7.0 16.0 H (6-13) BUN 7 7 (6-20) mg/dL Creatinine 0.6 0.7 (0.4-1.0) mg/dL Estimated GFR (MDRD) 127 107 (>89) Glucose 114 H 76 (70-100) mg/dL Calcium 8.9 9.3 (8.5-10.3) mg/dL Phosphorus 3.3 (2.5-4.6) mg/dL Magnesium 1.8 (1.7-2.8) mg/dL Total Bilirubin < 0.2 L 0.5 (0.2-1.0) mg/dL AST 14 19 (10-42) IU/L ALT 11 14 (10-60) IU/L Alkaline Phosphatase 34 L 37 L (42-121) IU/L Total Protein 6.4 L 7.9 (6.7-8.2) g/dL Albumin 3.1 L 3.9 (3.2-5.5) g/dL Globulin 3.3 4.0 (2.1-4.2) g/dL Albumin/Globulin Ratio 0.9 L 1.0 (1.0-2.2) Prealbumin 18 (18-45) mg/dL Triglycerides 108 ( - 149) mg/dL - Diagnostic Imaging Diagnostic Imaging Comments: Nothing new to review ABX Reporting Has patient been on IV antibiotics over the past 48 hours?: Yes Assessment/Plan - Problem List (1) Ileus, postoperative Impression: No real change overnight. Her labs are reassuring. I will stop IV Zosyn as she really has no evidence of infection and her abdominal pain is essentially unchanged and non focal. 2. Will change to Morphine from Dilaudid. She has tolerated morphine with less nausea in the past. 3. Change ativan to valium - anxiety and agitation have not been well controlled with ativan. Do not want to use a beta dustin due to patient's history of a sthma 4. NPO with ice chips. 5. Stop phenergan now and try reglan again this evening. She saw some short term benefit in the past and tolerated it well so we have little to lose by giving it another try. 6. Watchful waiting. I have requested an operative reports from [facility] in [place]. There is no evidence of a surgical emergency. The ileus will likely resolve in time. (2) Abdominal pain Qualifiers: Abdominal location: generalized Qualified Code(s): R10.84 - Generalized abdominal pain
[2019-07-12] MEDS: diazePAM INJ 5 MG/ML SYRINGE IVP PRN ×2 (08:45→15:21)
[2019-07-12] MEDS ORDERED: ALBUTEROL NEB 2.5 MG/3 ML INH PRN (10:09)
[2019-07-12] MEDS: METOCLOPRAMIDE 10 MG/2 ML VIAL IVP PRN ×2 (10:58→17:50)
[2019-07-12] MEDS: MORPHINE PCA 50 MG IV PRN (11:04)
[2019-07-12] MEDS: PPN (CLINIMIX E 4.25/5) 2,000 ML with MULTIVITAMIN 10 ML, TRACE ELEMENTS V CONC 1 ML IV SCH ×3 (19:36)
[2019-07-12] MEDS: FAT EMULSION 20% 250 ML IV SCH (19:36)
[2019-07-13] MEDS: SODIUM CHLORIDE FLUSH 0.9% 10 ML SYRINGE IVP SCH ×3 (00:07→18:27)
[2019-07-13] MEDS: ACETAMINOPHEN 1,000 MG/100 ML 100 ML IV SCH ×4 (01:43→21:29)
[2019-07-13] MEDS: ONDANSETRON 4 MG/2 ML VIAL IVP PRN ×2 (01:44→09:09)
[2019-07-13] MEDS: SODIUM CHLORIDE FLUSH 0.9% 10 ML SYRINGE IVP PRN ×3 (06:43→12:34)
[2019-07-13] MEDS: PANTOPRAZOLE 40 MG VIAL IVP SCH (06:43)
[2019-07-13] MEDS: METOCLOPRAMIDE 10 MG/2 ML VIAL IVP PRN ×3 (07:15→18:27)
[2019-07-13] MEDS: diazePAM INJ 5 MG/ML SYRINGE IVP PRN (09:10)
--- NOTE | 2019-07-13 12:32 | PROVIDER PROGRESS NOTE ---
Subjective - Prog Note Date Prog Note Date: 07/13/19 Prog Note Time: 12:30 - Subjective Pt reports feeling: Improved Subjective: Nausea has resolved and Elizabeth is having some diarrhea today. Pain is reasonably well controlled and valium is working well for anxiety. Feeling some abdominal cramping Current Medications - Current Medications Current Medications: Medications Summary Acetaminophen (Ofirmev) 100 mls @ 400 mls/hr IV Q6H FUAD Last Infusion: 07/13/19 09:47 Dose: 0 mls/hr Medication Titration Document 07/13/19 09:47 (Rec: 07/13/19 09:47 [id number]) Titration Intake Titration Intake 100 Cumulative Intake 100 Container Volume 0 Elapsed Time 5h 26m Titration Dosing IV Rate 0 Increase/Decrease Infused Cumulative Dose 8000 Total Intake (Rx) 800 Volume Adjustment/Waste 0 Multivitamins 10 ml/ Chromium/Copper/Manganese/Seleni/Zn 1 ml/ Amino Acids/Electrolytes/Dextrose 2,011 mls @ 83 mls/hr IV Q24H FUAD; Protocol Last Admin: 07/12/19 19:36 Dose: 83 mls/hr Medication Titration Document 07/12/19 19:36 (Rec: 07/12/19 19:36 [id number]) Titration Intake Container Volume 2,011 Elapsed Time 23h 13m Titration Dosing IV Rate 83 Increase/Decrease Started/Running Cumulative Dose Not Applicable Total Intake (Rx) 1,926.983 Volume Adjustment/Waste 0 Sodium Chloride (Normal Saline 0.9%) 500 mls @ 0 mls/hr IV Q24H PRN PRN Reason: TKO RATE Last Admin: 07/12/19 19:37 Dose: 30 mls/hr Medication Titration Document 07/12/19 19:37 (Rec: 07/12/19 19:37 [id number]) Titration Intake Container Volume 500 Elapsed Time 16h 41m Titration Dosing IV Rate 30 Increase/Decrease Started/Running Cumulative Dose Not Applicable Total Intake (Rx) 500 Volume Adjustment/Waste 0 Ketorolac Tromethamine (Toradol Inj (30mg)) 30 mg IVP Q6HR PRN PRN Reason: PAIN Stop: 07/16/19 11:59 Last Admin: 07/12/19 15:20 Dose: 30 mg Pain Assessment Document 07/12/19 15:20 (Rec: 07/12/19 15:20 [id number]) Pain Level Pain Scale Used 0-10 Intensity (0-10) 2 Re-Assess: Pain Reassessment Document 07/12/19 15:48 AH (Rec: 07/12/19 15:48 AH [id number]) Reassessment Effective/Ineffective Effective Metoclopramide HCl (Reglan Inj) 10 mg IVP Q6HR PRN PRN Reason: Nausea / Vomiting Last Admin: 07/13/19 07:15 Dose: 10 mg Re-Assess: General PRN Medication Reasses Document 07/13/19 07:45 ZACHARY (Rec: 07/13/19 07:49 ZACHARY [id number]) Reassessment Effective/Ineffective Effective Ondansetron HCl (Zofran Inj) 4 mg IVP Q6HR PRN PRN Reason: Nausea / Vomiting Last Admin: 07/13/19 09:09 Dose: 4 mg Re-Assess: General PRN Medication Reasses Document 07/13/19 09:39 ZACHARY (Rec: 07/13/19 10:04 [facility] [id number]) Reassessment Effective/Ineffective Effective Pantoprazole Sodium (Protonix) 40 mg IVP QDAC [facility] Last Admin: 07/13/19 06:43 Dose: 40 mg Sodium Chloride (Normal Saline Flush 0.9%) 10 ml IVP 0100,0900,1700 FUAD Last Admin: 07/13/19 09:12 Dose: 10 ml Sodium Chloride (Normal Saline Flush 0.9%) 10 ml IVP PRN PRN PRN Reason: NEEDED PER PROVIDER ORDERS Last Admin: 07/13/19 09:10 Dose: 10 ml Discontinued Medications Diazepam (Valium Inj) 5 mg IVP Q6H PRN PRN Reason: Agitation Last Admin: 07/13/19 09:10 Dose: 5 mg Re-Assess: General PRN Medication Reasses Document 07/13/19 09:40 ZACHARY (Rec: 07/13/19 10:04 [facility] [id number]) Reassessment Effective/Ineffective Effective Fluoxetine HCl (Prozac) 40 mg PO DAILY [facility] Last Admin: 07/11/19 12:59 Dose: Not Given Non-Admin Reason: discontinued Hydromorphone HCl (Dilaudid Bomb Loader 20mg/100ml) 20 mg IV PRN PRN; Protocol PRN Reason: PAIN Last Admin: 07/11/19 16:32 Dose: 20 mg LOGISTICS SUPPLY OFFICER Assessment Document 07/11/19 16:32 RLR (Rec: 07/11/19 16:35 RLR [id number]) Settings Settings Changed No: initiated Patient Educated on LOGISTICS SUPPLY OFFICER Use Yes Starting Dose 0.2 Lockout (min) 8 4 Hour Limit (mg) 6 Basal Rate Off Basal Rate Amount (mg/ml) (mg/hr) 0 Re-Assess: Pain Reassessment Document 07/11/19 17:02 RLR (Rec: 07/11/19 17:37 RLR [id number]) Reassessment Pain Scale Used 0-10 Pain Intensity (0-10) 5 Effective/Ineffective Effective Potassium Chloride/Dextrose/Sod Cl () 1,000 mls @ 100 mls/hr IV .Q10H [facility] Stop: 07/11/19 19:00 Last Infusion: 07/12/19 01:00 Dose: 0 mls/hr Medication Titration Document 07/12/19 01:00 HS (Rec: 07/12/19 01:26 HS [id number]) Titration Intake Titration Intake 37.5 Cumulative Intake 887.5 Container Volume 0 Elapsed Time 10h 49m Titration Dosing IV Rate 0 Increase/Decrease Infused Cumulative Dose Not Applicable Total Intake (Rx) 887.5 Volume Adjustment/Waste 112.5 Ceftriaxone Sodium 1 gm/ (Sodium Chloride) 100 mls @ 200 mls/hr IV DAILY [facility] Last Admin: 07/11/19 12:59 Dose: Not Given Non-Admin Reason: discontinued Pantoprazole Sodium 80 mg/ (Sodium Chloride) 100 mls @ 200 mls/hr IV ONCE ONE Stop: 07/11/19 11:49 Last Admin: 07/11/19 12:58 Dose: Not Given Non-Admin Reason: discontinued Promethazine HCl 25 mg/ Sodium (Chloride) 51 mls @ 100 mls/hr IV Q6H PRN PRN Reason: Nausea / Vomiting Last Infusion: 07/12/19 03:07 Dose: 0 mls/hr Medication Titration Document 07/12/19 03:07 HS (Rec: 07/12/19 03:07 HS [id number]) Titration Intake Titration Intake 51 Cumulative Intake 51 Container Volume 0 Elapsed Time 1h 21m Titration Dosing IV Rate 0 Increase/Decrease Infused Cumulative Dose 49.9998 Total Intake (Rx) 102 Volume Adjustment/Waste 0 Piperacillin Sod/Tazobactam (Sod 3.375 gm/ Sodium Chloride) 100 mls @ 200 mls/hr IV Q6H [facility] Last Infusion: 07/12/19 07:30 Dose: 0 mls/hr Medication Titration Document 07/12/19 07:30 (Rec: 07/12/19 15:44 AH [id number]) Titration Intake Titration Intake 100 Cumulative Intake 100 Container Volume 0 Elapsed Time 3h 38m Titration Dosing IV Rate 0 Increase/Decrease Infused Cumulative Dose 0 Total Intake (Rx) 400 Volume Adjustment/Waste 0 Sodium Chloride (Normal Saline 0.9%) 1,000 mls @ 999 mls/hr IV ONCE ONE Stop: 07/11/19 13:48 Last Infusion: 07/11/19 15:52 Dose: 0 mls/hr Medication Titration Document 07/11/19 15:52 RLR (Rec: 07/11/19 15:52 RLR [id number]) Titration Intake Titration Intake 1,000 Cumulative Intake 1,000 Container Volume 0 Elapsed Time 2h 11m Titration Dosing IV Rate 0 Increase/Decrease Infused Cumulative Dose Not Applicable Total Intake (Rx) 1,000 Volume Adjustment/Waste 0 Fat Emulsion Intravenous (Intralipid 20%) 250 mls @ 21 mls/hr IV Q24H [facility] Last Infusion: 07/13/19 08:01 Dose: 0 mls/hr Medication Titration Document 07/13/19 08:01 ZACHARY (Rec: 07/13/19 08:01 ZACHARY [id number]) Titration Intake Titration Intake 250 Cumulative Intake 250 Container Volume 0 Elapsed Time 31h 4m Titration Dosing IV Rate 0 Increase/Decrease Infused Cumulative Dose Not Applicable Total Intake (Rx) 500 Volume Adjustment/Waste 0 Lorazepam (Ativan Inj (Vial)) 0.5 mg IVP Q2H PRN PRN Reason: Nausea / Vomiting Last Admin: 07/12/19 06:31 Dose: 0.5 mg Re-Assess: General PRN Medication Reasses Document 07/12/19 07:00 HS (Rec: 07/12/19 07:00 HS [id number]) Reassessment Effective/Ineffective Ineffective Morphine Sulfate/Sodium Chloride (Morphine Bomb Loader (Use Bomb Loader Order Set)) 50 mg IV LOGISTICS SUPPLY OFFICER PRN; Protocol PRN Reason: PAIN Last Admin: 07/12/19 11:04 Dose: 50 mg LOGISTICS SUPPLY OFFICER Assessment Document 07/12/19 11:04 KR (Rec: 08/23/19 11:06 KR [id number]) Settings Settings Changed Yes Patient Educated on LOGISTICS SUPPLY OFFICER Use Yes Concentration (mg/ml or mcg/ml) 1 Starting Dose 0 Lockout (min) 8 4 Hour Limit (mg) 30 Loading Dose (Optional) 0 Basal Rate Off Objective - Vital Signs/Intake & Output Reviewed Vital Signs: Yes Vital Signs: Vital Signs x48h Temp Pulse Resp BP Pulse Ox 07/13/19 12:00 16 07/13/19 10:00 16 07/13/19 08:25 36.7 C 68 16 132/66 H 98 07/13/19 08:00 16 07/13/19 06:00 16 Intake & Output: Intake & Output 07/10/19 07/11/19 07/12/19 07/13/19 23:59 23:59 23:59 23:59 Intake Total 2601.000 3585.483 500 Balance 2601.000 3585.483 500 - Objective General Appearance: positive: Alert, Mild distress Eyes Bilateral: positive: Normal inspection ENT: positive: ENT inspection nml, Pharynx nml Neck: positive: Nml inspection Respiratory: positive: Chest non-tender, No respiratory distress Cardiovascular: positive: Regular rate & rhythm Abdomen: positive: Non-tender, Nml bowel sounds, No distention, Tenderness Back: positive: Nml inspection Skin: positive: Color nml Extremities: positive: Non-tender, Full ROM, Nml appearance Neurologic/Psychiatric: positive: Oriented x3, CN's nml (2-12) - Lab Results Fish Bones: 07/11/19 11:25 07/12/19 05:35 Other Labs: Lab Results x24hrs 07/13/19 Range/Units 06:00 POC Whole Bld Glucose 89 (70 - 100) mg/dL ABX Reporting Has patient been on IV antibiotics over the past 48 hours?: No Assessment/Plan - Problem List (2) Abdominal pain Impression: Improving post operative ileus. Will check c.diff. Stop PPN after this bag. Start regular diet. Change Valium to scheduled so that Elizabeth can refuse it if she doesn't need it. Qualifiers: Abdominal location: generalized Qualified Code(s): R10.84 - Generalized abdominal pain
[2019-07-13] MEDS: SODIUM CHLORIDE 0.9% 500 ML IV PRN (12:35)
[2019-07-13] MEDS: MORPHINE PCA 50 MG IV PRN (12:49)
[2019-07-13] MEDS: diazePAM INJ 5 MG/ML SYRINGE IVP SCH ×2 (12:57→19:20)
[2019-07-13] MEDS: PPN (CLINIMIX E 4.25/5) 2,000 ML with MULTIVITAMIN 10 ML, TRACE ELEMENTS V CONC 1 ML IV SCH ×3 (20:13)
[2019-07-14] MEDS: diazePAM INJ 5 MG/ML SYRINGE IVP SCH ×2 (00:53→06:33)
[2019-07-14] MEDS: ONDANSETRON 4 MG/2 ML VIAL IVP PRN (00:54)
[2019-07-14] MEDS: SODIUM CHLORIDE FLUSH 0.9% 10 ML SYRINGE IVP SCH (00:54)
[2019-07-14] MEDS: ACETAMINOPHEN 1,000 MG/100 ML 100 ML IV SCH (02:56)
[2019-07-14] MEDS: SODIUM CHLORIDE FLUSH 0.9% 10 ML SYRINGE IVP PRN (06:33)
[2019-07-14] MEDS: PANTOPRAZOLE 40 MG VIAL IVP SCH (06:43)
[2019-07-14 07:11] LABS: ALBUMIN 3.5 g/dL (3.2-5.5); BILIRUBIN,TOTAL 0.2 mg/dL (0.2-1.0); CREATININE 0.6 mg/dL (0.4-1.0); MAGNESIUM 1.8 mg/dL (1.7-2.8); PHOSPHORUS 3.9 mg/dL (2.5-4.6); TOTAL PROTEIN 6.9 g/dL (6.7-8.2)
[2019-07-14 07:20] VITALS: BP 120/68
--- NOTE | 2019-07-14 08:11 | DISCHARGE SUMMARY ---
"Discharge Summary Admit Date: 07/11/19 Discharge Date: 07/14/19 Discharging Provider: Chelsea Code Status: Attempt Resuscitation Condition at Discharge: Good Discharge Disposition: 01 Home, Self Care - DIAGNOSES Admission Diagnoses: Postoperative Ileus Discharge Diagnoses with Status of Each Condition: Resolved - HPI History of Present Illness: Elizabeth has a history of endometriosis. She underwent a robotic resection of endometrial implants approximately 1 week ago at [facility] in [place]. She did well initially and then devoloped intractable nausea and vomiting. She was admitted to our facility with Postoperative Ileus. - CONSULTS | PROCEDURES Consultations: None Procedures: None - HOSPITAL COURSE Hospital Course: Elizabeth was admitted and started on nutritional replacement and supportive care with hydration and pain control. On Hospital Day 2 she began to improve with a decrease in nausea and some diarrhea. Today she is without nausea, slept well overnight, and is tolerating a regular diet. She is discharged to her home in the care of her family. She has follow up scheduled with her physician in [place] - ALLERGIES Allergies/Adverse Reactions: Allergies Allergy/AdvReac Type Severity Reaction Status Date / Time aripiprazole [From Abilify] Allergy Unknown Verified 03/25/19 08:02 quetiapine Allergy Unknown Verified 03/25/19 08:02 venlafaxine Allergy Unknown Verified 03/25/19 08:02 - MEDICATIONS Home Medications: Ambulatory Orders Medication Instructions Recorded Confirmed Montelukast Sodium [Singulair] 10 mg PO DAILY 08/14/15 07/12/19 Bupropion HCl [Bupropion Xl] 150 mg PO DAILY 07/12/19 07/12/19 Norethindrone [Ara] 0.35 mg PO DAILY 07/12/19 07/12/19 Propranolol [Inderal] 10 mg PO BID 07/12/19 07/12/19 lamoTRIgine [LaMICtal] 100 mg PO DAILY 07/12/19 07/12/19 Home Medications Other | Comments: Xanax 0.5 mg q 8 hours prn - PHYSICAL EXAM AT DISCHARGE General Appearance: positive: No acute distress, Alert Eyes Bilateral: positive: Normal inspection, PERRL, EOMI ENT: positive: ENT inspection nml, Pharynx nml, No signs of dehydration Neck: positive: Nml inspection, No JVD, Trachea midline, Thyromegaly Respiratory: positive: Chest non-tender, No respiratory distress, Breath sounds nml. negative: Wheezes, Rales Cardiovascular: positive: Regular rate & rhythm, No murmur, No gallop Abdomen: positive: Other (Minimal appropriate tenderness to palpation. Wounds are clean and dry and in tact) Back: positive: Nml inspection Skin: positive: Color nml, No rash Extremities: positive: Non-tender, Full ROM, Nml appearance, No pedal edema Neurologic/Psychiatric: positive: Oriented x3, CN's nml (2-12) - LABS Result Diagrams: 07/11/19 11:25 07/14/19 06:48 - FOLLOW UP Follow Up: As scheduled"
--- NOTE | 2019-07-14 08:20 | Discharge Plan ---
Discharge Plan Problem Reviewed?: Yes Disposition: Home, Self Care Condition: Good Prescriptions: Alprazolam [Xanax] 0.5 mg PO Q8H PRN #20 tablet PRN Reason: Agitation Diet: Regular Activity Restrictions: No Restrictions Shower Restrictions: No Driving Restrictions: No ( ) No Smoking: If you smoke, Please STOP! Call for help.
== END 2019-07-14 08:44 | disposition home or self-care (01) | DRG 390 ==
LOC: MS2 10:59 → OBSVTOIN 07-12 11:21
PROVIDERS: ADMIT Surgery; ATTEND Surgery
DX: K91.30 Postprocedural intestinal obstruction, unspecified as to partial versus complete (principal); Y83.8 Other surgical procedures as the cause of abnormal reaction of the patient, or of later complication, without mention of misadventure at the time of the procedure; Y92.234 Operating room of hospital as the place of occurrence of the external cause; J45.909 Unspecified asthma, uncomplicated; F32.9 Major depressive disorder, single episode, unspecified; Z79.51 Long term (current) use of inhaled steroids; Z87.42 Personal history of other diseases of the female genital tract
CPT/HCPCS: 36415; 80053; 83735; 84100; 84134; 84478; 85025; 87493; J0131; J2060; J2765; J3490; J7040

== ENCOUNTER 2019-10-15 18:18 | Emergency (ER) | payer OTHER ==
[2019-10-15] MEDS ORDERED: IOVERSOL 320 100 ML VIAL IVP ONE ×2 (19:14→20:37)
[2019-10-15] MEDS ORDERED: IOVERSOL 320 50 ML VIAL ONE (19:14)
[2019-10-15 19:22] LABS: BASOPHILS % (AUTO) 0.5 %; EOSINOPHILS # (AUTO) 0.2 10^3/uL (0.0-0.7); EOSINOPHILS % (AUTO) 3.1 %; HGB - HEMOGLOBIN 13.8 g/dL (12.0-16.0); LYMPHOCYTES % (AUTO) 34.1 %; MEAN CORPUSCULAR HEMOGLOBIN 30.6 pg (27.0-31.0); MEAN CORPUSCULAR VOLUME 92.7 fL (81.0-99.0); MEAN PLATELET VOLUME 9.4 fL (7.9-10.8); MONOCYTES # (AUTO) 0.6 10^3/uL (0.0-1.0); MONOCYTES % (AUTO) 9.6 %; NEUTROPHILS % (AUTO) 52.4 %; PLT - PLATELET COUNT 282 10^3/uL (130-450); RED BLOOD COUNT 4.51 10^6/uL (4.20-5.40); RED CELL DISTRIBUTION WIDTH 12.2 % (12.0-15.0); WHITE BLOOD COUNT 5.7 x10^3/uL (4.8-10.8)
[2019-10-15 19:38] LABS: ALBUMIN 4.5 g/dL (3.2-5.5); ALBUMIN/GLOBULIN RATIO 1.3 (1.0-2.2); BILIRUBIN,TOTAL 0.5 mg/dL (0.2-1.0); CALCIUM 9.6 mg/dL (8.5-10.3); CREATININE 0.6 mg/dL (0.4-1.0); TOTAL PROTEIN 8.1 g/dL (6.7-8.2)
[2019-10-15 19:38] LABS: BILIRUBIN,URINE NEGATIVE (NEGATIVE); GLUCOSE, URINE (UA) NEGATIVE (NEGATIVE); KETONES,URINE (UA) NEGATIVE (NEGATIVE); LEUKOCYTE ESTERASE, URINE NEGATIVE (NEGATIVE); NITRITE,URINE NEGATIVE (NEGATIVE); OCCULT BLOOD,URINE SMALL (NEGATIVE); PH,URINE 6.5 PH (5.0-7.5); PROTEIN,URINE NEGATIVE (NEGATIVE); UROBILINOGEN,URINE 0.2 (NORMAL) E.U./dL (NORMAL)
[2019-10-15 19:45] LABS: CLARITY,URINE HAZY (CLEAR); HCG UR QUAL NEGATIVE
[2019-10-15 19:52] LABS: BACTERIA,URINE None Seen /HPF (None Seen); RBC,URINE 0-5 /HPF (0-5); SQUAMOUS EPITHELIAL CELL,UR FEW Squamous (<= Few)
[2019-10-15] MEDS ORDERED: IOVERSOL 320 50 ML VIAL PO ONE (20:37)
[2019-10-15] MEDS ORDERED: SODIUM/POTASSIUM/MAG SULFATES 354 ML PREP KIT PO STA (20:43)
[2019-10-15 21:01] VITALS: BP 127/77
[2019-10-15] MEDS ORDERED: SODIUM/POTASSIUM/MAG SULFATES 354 ML PREP KIT PO ONE (21:01)
--- NOTE | 2019-10-15 21:15 | ED Physician Documentation ---
PD HPI ABD PAIN - Stated complaint Stated Complaint: CONSTIPATION X 6 DAYS - Chief complaint Chief Complaint: Abd Pain - History obtained from History obtained from: Patient - History of Present Illness Timing - onset: Other (19-year-old woman with chronic constipation, has not had a bowel movement in 6 days and has abdominal pain and nausea but no vomiting. 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 Psych: Depression - Past Surgical History Past Surgical History: Yes /METALLURGICAL LAB TECHNICIAN: Other HEENT: Myringotomy (tubes) - Present Medications Home Medications: Ambulatory Orders Medication Instructions Recorded Confirmed Montelukast Sodium [Singulair] 10 mg PO DAILY 08/14/15 07/12/19 Bupropion HCl [Bupropion Xl] 150 mg PO DAILY 07/12/19 07/12/19 Norethindrone [Ara] 0.35 mg PO DAILY 07/12/19 07/12/19 Propranolol [Inderal] 10 mg PO BID 07/12/19 07/12/19 Albuterol 2.5 mg INH Q4HR PRN neb 07/14/19 Alprazolam [Xanax] 0.5 mg PO Q8H PRN #20 tablet 07/14/19 Peg 3350/Na Sulf,Bicarb,Cl/KCl 4,000 ml PO ONCE #1 bottle 10/15/19 [Golytely] - Allergies Allergies/Adverse Reactions: Allergies Allergy/AdvReac Type Severity Reaction Status Date / Time aripiprazole [From Abilify] Allergy Unknown Verified 10/15/19 18:21 quetiapine Allergy Unknown Verified 10/15/19 18:21 venlafaxine Allergy Unknown Verified 10/15/19 18:21 - Social History Does the pt smoke?: No Smoking Status: Never smoker Does the pt drink ETOH?: Yes Does the pt have substance abuse?: No - Immunizations Immunizations are current?: Yes - POLST Patient has POLST: No PD ED PE NORMAL - Vitals Vital signs reviewed: Yes - General General: Alert and oriented X 3, No acute distress - Abdomen Abdomen: Soft, Non tender, Other (Diminished but not absent bowel tones, soft and nontender.) - Rectal Rectal: Other (No fecal impaction) - Back Back: No CVA TTP - Neuro Neuro: Alert and oriented X 3, Normal speech Results - Vitals Vitals: Vital Signs - 24 hr 10/15/19 10/15/19 10/15/19 18:21 19:56 21:00 Temperature 36.8 C Heart Rate 82 81 84 Respiratory 16 18 18 Rate Blood Pressure 132/62 H 128/74 127/77 O2 Saturation 100 100 99 Oxygen O2 Source Room air - Labs Labs: Laboratory Tests 10/15/19 10/15/19 10/15/19 19:12 19:12 19:20 WBC 5.7 RBC 4.51 Hgb 13.8 Hct 41.8 MCV 92.7 MCH 30.6 MCHC 33.0 RDW 12.2 Plt Count 282 MPV 9.4 Neut # (Auto) 3.0 Lymph # (Auto) 2.0 Fleming # (Auto) 0.6 Eos # (Auto) 0.2 Baso # (Auto) 0.0 Absolute Nucleated RBC 0.00 Nucleated RBC % 0.0 Sodium 137 Potassium 3.9 Chloride 102 Carbon Dioxide 27 Anion Gap 8.0 BUN 9 Creatinine 0.6 Estimated GFR (MDRD) 127 Glucose 88 Calcium 9.6 Total Bilirubin 0.5 AST 18 ALT 13 Alkaline Phosphatase 39 L Total Protein 8.1 Albumin 4.5 Globulin 3.6 Albumin/Globulin Ratio 1.3 Lipase 33 Urine Color YELLOW Urine Clarity HAZY Urine pH 6.5 Ur Specific Purdum <=1.005 Urine Protein NEGATIVE Urine Glucose (UA) NEGATIVE Urine Ketones NEGATIVE Urine Occult Blood SMALL H Urine Nitrite NEGATIVE Urine Bilirubin NEGATIVE Urine Urobilinogen 0.2 (NORMAL) Ur Leukocyte Esterase NEGATIVE Urine RBC 0-5 Urine WBC 0-3 Ur Squamous Epith Cells FEW Squamous Urine Bacteria None Seen Ur Microscopic Review INDICATED Urine Culture Comments NOT INDICATED Urine HCG, Qual NEGATIVE - Rads (name of study) CT A/P Radiology: EMP read contemporaneously (mod stool, NAD) PD MEDICAL DECISION MAKING - ED course ED course: 19-year-old with chronic constipation presents with abdominal pain, some concern for bowel obstruction but negative CT for same. Given everything she tried at home, she was given Suprep to take home. Departure - Departure Disposition: Home, Self Care Clinical Impression: Constipation Qualifiers: Constipation type: unspecified constipation type Qualified Code(s): K59.00 - Constipation, unspecified Abdominal pain Qualifiers: Abdominal location: generalized Qualified Code(s): R10.84 - Generalized abdominal pain Condition: Good Record reviewed to determine appropriate education?: Yes Instructions: ED Constipation Prescriptions: Peg 3350/Na Sulf,Bicarb,Cl/KCl [Golytely] 4,000 ml PO ONCE #1 bottle Comments: Call your doctor to arrange a follow-up appointment, make the next available appointment. In the interim, return anytime if worse or if new symptoms develop.
--- NOTE | 2019-10-15 21:17 | CT Report ---
Reason: IV and PO, abd pain, no BM Procedure Date: 10/15/2019 Accession Number: [id number] / [id number] Procedure: CT - Abdomen/Pelvis W CPT Code: Final Report FULL RESULT: EXAM: CT ABDOMEN AND PELVIS EXAM DATE: 10/15/2019 08:35 PM. CLINICAL HISTORY: IV and PO, abdominal pain, no BM. COMPARISONS: ABDOMEN/PELVIS W/ 07/10/2019 3:33 PM. TECHNIQUE: Routine helical CT imaging was performed through the abdomen and pelvis. IV contrast: OPTI 320 90ML. Enteric contrast: No. Reconstructions: Coronal and sagittal. In accordance with CT protocol optimization, one or more of the following dose reduction techniques were utilized for this exam: automated exposure control, adjustment of mA and/or KV based on patient size, or use of iterative reconstructive technique. FINDINGS: Lung Bases: Unremarkable. Liver: Normal. Gallbladder/Bile Ducts: Unremarkable. Spleen: Normal. Pancreas: Normal. Adrenal Glands: Normal. Kidneys: Normal. No hydronephrosis. Peritoneal Cavity/Bowel: No bowel obstruction. Prominently in the ascending and transverse colon. Mostly decompressed descending and sigmoid colon. No free fluid, free air or adenopathy. No acute inflammatory process identified. The appendix is not definitely identified. No pericecal inflammatory changes or findings of acute appendicitis. Pelvic Organs: The bladder, uterus and adnexa are unremarkable. Intrauterine device centrally positioned within the endometrium. Vasculature: Unremarkable. Bones: No significant abnormality. Other: None. IMPRESSION: No acute abnormality. Appendix not definitely identified without findings of acute appendicitis. Moderate amount of stool. RADIA
== END 2019-10-15 21:18 | disposition home or self-care (01) ==
LOC: ED 18:18
DX: K59.00 Constipation, unspecified (principal); R10.84 Generalized abdominal pain
CPT/HCPCS: 36415; 74177; 80053; 81001; 81025; 83690; 85025; 99284; A9270; Q9967; 81003; 87086

== ENCOUNTER 2020-02-05 11:31 | Outpatient (CLI) | payer OTHER | END 2020-02-05 11:32 | disposition home or self-care (01) | LOC: COV 11:31 | PROVIDERS: ATTEND Family Medicine | DX: R05 Cough (principal); R50.9 Fever, unspecified | CPT/HCPCS: 81599 ==

== ENCOUNTER 2020-02-10 20:20 | Emergency (ER) | payer OTHER ==
[2020-02-10] MEDS ORDERED: predniSONE 20 MG TABLET PO STA (22:33)
--- NOTE | 2020-02-10 22:36 | ED Physician Documentation ---
PD HPI DYSPNEA - Stated complaint Stated Complaint: SHORTNESS OF BREATH - Chief complaint Chief Complaint: Resp - History obtained from History obtained from: Patient (19-year-old woman with history of asthma has been sick for 8 days with cough, chest heaviness, shortness of breath, chills. No sick contacts or recent travel. She was swabbed for coronavirus 5 days ago, results not yet available. Shortness of breath is worsening. Has not been at work due to quarantine.) - Additional information Additional information: She is already on a Z-Reagan prescribed by Dr. Tran. Review of Systems Constitutional: reports: Chills, Myalgias, Fatigue. 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 REVIEWER VETERAN: Other HEENT: Myringotomy (tubes) - Present Medications Home Medications: Ambulatory Orders Medication Instructions Recorded Confirmed Montelukast Sodium [Singulair] 10 mg PO DAILY 08/14/15 07/12/19 Bupropion HCl [Bupropion Xl] 150 mg PO DAILY 07/12/19 07/12/19 Norethindrone [Ara] 0.35 mg PO DAILY 07/12/19 07/12/19 Propranolol [Inderal] 10 mg PO BID 07/12/19 07/12/19 Albuterol 2.5 mg INH Q4HR PRN neb 07/14/19 Alprazolam [Xanax] 0.5 mg PO Q8H PRN #20 tablet 07/14/19 Peg 3350/Na Sulf,Bicarb,Cl/KCl 4,000 ml PO ONCE #1 bottle 10/15/19 [Golytely] predniSONE [Deltasone] 60 mg PO DAILY 5 Days #15 tablet 02/10/20 - Allergies Allergies/Adverse Reactions: Allergies Allergy/AdvReac Type Severity Reaction Status Date / Time aripiprazole [From Abilify] Allergy Unknown Verified 10/15/19 18:21 quetiapine Allergy Unknown Verified 10/15/19 18:21 venlafaxine Allergy Unknown Verified 10/15/19 18:21 - Social History Does the pt smoke?: No Smoking Status: Never smoker Does the pt drink ETOH?: Yes Does the pt have substance abuse?: No - Immunizations Immunizations are current?: Yes - POLST Patient has POLST: No PD ED PE NORMAL - Vitals Vital signs reviewed: Yes - General General: Alert and oriented X 3, No acute distress - HEENT HEENT: PERRL, EOMI - Neck Neck: Supple, no meningeal sign, No bony TTP - Cardiac Cardiac: RRR, No murmur - Respiratory Respiratory: No respiratory distress, Other (Mildly diminished at both bases without other focal findings, nonlabored, speaking in full sentences.) - Abdomen Abdomen: Non tender - Extremities Extremities: No edema, No calf tenderness / cord - Neuro Neuro: Alert and oriented X 3, Normal speech - Psych Psych: Normal mood, Normal affect Results - Vitals Vitals: Vital Signs - 24 hr 02/10/20 02/10/20 20:20 22:48 Temperature 36.1 C L Heart Rate 79 81 Respiratory 18 16 Rate Blood Pressure 134/81 H 132/83 H O2 Saturation 97 94 Oxygen O2 Source Room air - Rads (name of study) 2v chest Radiology: EMP read contemporaneously (normal) PD MEDICAL DECISION MAKING - ED course ED course: 19-year-old woman with what sounds like viral bronchitis, superimposed on asthma. Seems low risk for COVID but not no risk. We discussed the risks and benefits of steroids which I do think would benefit her, there is some early evidence that for severely ill patients, they may do worse on steroids with c oronavirus. That said she is certainly not severely ill right now. Departure - Departure Disposition: 01 Home, Self Care Clinical Impression: Viral bronchitis Condition: Good Record reviewed to determine appropriate education?: Yes Instructions: ED Bronchitis Asthmatic Prescriptions: predniSONE [Deltasone] 60 mg PO DAILY 5 Days #15 tablet Comments: Hopefully coronavirus will testing will be done in another few days, you should get a call regardless. Return for worsening symptoms. Discharge Date/Time: 02/10/20 22:48
[2020-02-10 22:49] VITALS: BP 132/83
--- NOTE | 2020-02-10 23:01 | XRAY Report ---
Reason: Dyspnea Procedure Date: 02/10/2020 Accession Number: [id number] / [id number] Procedure: XR - Chest 2 View X-Ray CPT Code: 46644 Final Report FULL RESULT: EXAM: CHEST RADIOGRAPHY EXAM DATE: 02/10/2020 10:17 PM. CLINICAL HISTORY: Dyspnea. Cough for 1 week. Shortness of air for 3 days. COMPARISON: CHEST 2 VIEW PA/LAT 08/14/2015 2:06 PM. TECHNIQUE: 2 views. FINDINGS: Lungs/Pleura: No focal opacities evident. No pleural effusion. No pneumothorax. Normal volumes. Mediastinum: Heart and mediastinal contours are unremarkable. IMPRESSION: No acute cardiopulmonary disease seen. RADIA
== END 2020-02-10 22:48 | disposition home or self-care (01) ==
LOC: ED 20:20
DX: J20.8 Acute bronchitis due to other specified organisms (principal)
CPT/HCPCS: 71046; 99283; 99284; J7512

== ENCOUNTER 2020-05-12 12:04 | Outpatient (CLI) | payer OTHER ==
[2020-05-12 12:29] LABS: BASOPHILS % (AUTO) 0.4 %; EOSINOPHILS # (AUTO) 0.1 10^3/uL (0.0-0.7); HGB - HEMOGLOBIN 14.4 g/dL (12.0-16.0); LYMPHOCYTES # (AUTO) 1.6 10^3/uL (1.5-3.5); LYMPHOCYTES % (AUTO) 29.9 %; MEAN CORPUSCULAR HEMOGLOBIN 30.5 pg (27.0-31.0); MEAN CORPUSCULAR HGB CONC 33.7 g/dL (32.0-36.0); MEAN CORPUSCULAR VOLUME 90.5 fL (81.0-99.0); MEAN PLATELET VOLUME 8.9 fL (7.9-10.8); MONOCYTES # (AUTO) 0.4 10^3/uL (0.0-1.0); MONOCYTES % (AUTO) 6.7 %; NEUTROPHILS # (AUTO) 3.3 10^3/uL (1.5-6.6); NEUTROPHILS % (AUTO) 60.8 %; PLT - PLATELET COUNT 325 10^3/uL (130-450); RED BLOOD COUNT 4.72 10^6/uL (4.20-5.40); WHITE BLOOD COUNT 5.4 x10^3/uL (4.8-10.8)
[2020-05-12 12:42] LABS: CALCIUM 9.2 mg/dL (8.5-10.3); MAGNESIUM 2.3 mg/dL (1.7-2.8)
== END 2020-05-12 12:05 | disposition home or self-care (01) ==
LOC: LAB 12:04
PROVIDERS: ATTEND Physician Assistant
DX: R10.31 Right lower quadrant pain (principal); R14.0 Abdominal distension (gaseous); K59.01 Slow transit constipation
CPT/HCPCS: 36415; 82310; 83735; 84443; 85025

== ENCOUNTER 2020-08-14 16:41 | Emergency (ER) | payer OTHER ==
[2020-08-14 17:19] LABS: BASOPHILS % (AUTO) 0.3 %; EOSINOPHILS # (AUTO) 0.1 10^3/uL (0.0-0.7); EOSINOPHILS % (AUTO) 2.4 %; LYMPHOCYTES # (AUTO) 1.9 10^3/uL (1.5-3.5); LYMPHOCYTES % (AUTO) 33.4 %; MEAN CORPUSCULAR HGB CONC 32.6 g/dL (32.0-36.0); MEAN CORPUSCULAR VOLUME 91.9 fL (81.0-99.0); MEAN PLATELET VOLUME 8.8 fL (7.9-10.8); MONOCYTES # (AUTO) 0.6 10^3/uL (0.0-1.0); MONOCYTES % (AUTO) 9.5 %; NEUTROPHILS # (AUTO) 3.1 10^3/uL (1.5-6.6); NEUTROPHILS % (AUTO) 54.2 %; PLT - PLATELET COUNT 319 10^3/uL (130-450); RED BLOOD COUNT 4.67 10^6/uL (4.20-5.40); RED CELL DISTRIBUTION WIDTH 12.7 % (12.0-15.0); WHITE BLOOD COUNT 5.8 x10^3/uL (4.8-10.8)
[2020-08-14 17:35] LABS: ALBUMIN/GLOBULIN RATIO 1.2 (1.0-2.2); BILIRUBIN,TOTAL 0.4 mg/dL (0.2-1.0); CALCIUM 9.3 mg/dL (8.5-10.3); CREATININE 0.7 mg/dL (0.4-1.0); TOTAL PROTEIN 7.4 g/dL (6.7-8.2)
[2020-08-14 17:49] LABS: BILIRUBIN,URINE NEGATIVE (NEGATIVE); GLUCOSE, URINE (UA) NEGATIVE (NEGATIVE); KETONES,URINE (UA) NEGATIVE (NEGATIVE); LEUKOCYTE ESTERASE, URINE NEGATIVE (NEGATIVE); NITRITE,URINE NEGATIVE (NEGATIVE); OCCULT BLOOD,URINE TRACE-INTA (NEGATIVE); PROTEIN,URINE NEGATIVE (NEGATIVE); UROBILINOGEN,URINE 0.2 (NORMAL) E.U./dL (NORMAL)
[2020-08-14 17:52] LABS: CLARITY,URINE CLEAR (CLEAR); HCG UR QUAL NEGATIVE
--- NOTE | 2020-08-14 20:32 | ED Physician Documentation ---
PD HPI ABD PAIN - Stated complaint Stated Complaint: NAUSEA, CHILLS - Chief complaint Chief Complaint: Abd Pain - History obtained from History obtained from: Patient, Family - History of Present Illness Timing - onset: How many days ago (3) Timing - duration: Days (3) Pain level max: 4 Pain level now: 2 Quality: Cramping, Aching Location: All over / everywhere Improved by: BM Worsened by: Other (Nothing) Associated symptoms: Nausea, Diarrhea. No: Fever, Hematemesis, Constipation, Melena, Hematochezia, Dysuria, Hematuria, Chest pain, Near syncope / syncope Recently seen: Not recently seen - Additional information Additional information: 20-year-old female presents to the emergency department stating that she has had nausea, chills and diarrhea for the past 3 days. Feels lightheaded with standing and feels fatigued. No vomiting. Mother had a illness with vomiting a few days prior to this. Patient states she has diarrhea 1-2 times per day. Occasionally has mild abdominal cramping. Denies any possibility of . No recent travel. No recent antibiotics. Review of Systems Ten Systems: 10 systems reviewed and negative Constitutional: denies: Fever, Chills Throat: denies: Sore throat Cardiac: denies: Chest pain / pressure Respiratory: denies: Cough : denies: Dysuria, Frequency, Hesitancy, Now EGA Skin: denies: Rash Musculoskeletal: denies: Neck pain, Back pain Neurologic: denies: Headache PD PAST MEDICAL HISTORY - Past Medical History Respiratory: Asthma Endocrine/Autoimmune: None SUPERINTENDENT OPERATING: Endometriosis Psych: Depression - Past Surgical History Past Surgical History: Yes /SUPERINTENDENT OPERATING: Other HEENT: Myringotomy (tubes) - Present Medications Home Medications: Ambulatory Orders Medication Instructions Recorded Confirmed Montelukast Sodium [Singulair] 10 mg PO DAILY 08/14/15 07/12/19 Bupropion HCl [Bupropion Xl] 150 mg PO DAILY 07/12/19 07/12/19 Norethindrone [Ara] 0.35 mg PO DAILY 07/12/19 07/12/19 Propranolol [Inderal] 10 mg PO BID 07/12/19 07/12/19 Albuterol 2.5 mg INH Q4HR PRN neb 07/14/19 Alprazolam [Xanax] 0.5 mg PO Q8H PRN #20 tablet 07/14/19 Peg 3350/Na Sulf,Bicarb,Cl/KCl 4,000 ml PO ONCE #1 bottle 10/15/19 [Golytely] predniSONE [Deltasone] 60 mg PO DAILY 5 Days #15 tablet 02/10/20 - Allergies Allergies/Adverse Reactions: Allergies Allergy/AdvReac Type Severity Reaction Status Date / Time aripiprazole [From Abilify] Allergy Unknown Verified 08/14/20 17:00 hydrocodone Allergy Unknown Verified 08/14/20 17:00 quetiapine Allergy Unknown Verified 08/14/20 17:00 venlafaxine Allergy Unknown Verified 08/14/20 17:00 seasonal allergies Allergy Respiratory Uncoded 08/14/20 17:00 - Social History Does the pt smoke?: No Smoking Status: Never smoker Does the pt drink ETOH?: Yes Does the pt have substance abuse?: No - Immunizations Immunizations are current?: Yes - POLST Patient has POLST: No PD ED PE NORMAL - Vitals Vital signs reviewed: Yes - General General: Alert and oriented X 3, No acute distress - HEENT HEENT: Moist mucous membranes - Neck Neck: Supple, no meningeal sign - Cardiac Cardiac: RRR - Respiratory Respiratory: No respiratory distress, Clear bilaterally - Abdomen Abdomen: Soft, Non tender, Non distended - Back Back: No CVA TTP, No spinal TTP - Derm Derm: Warm and dry - Extremities Extremities: No edema - Neuro Neuro: Alert and oriented X 3 - Psych Psych: Normal mood, Normal affect Results - Vitals Vitals: Oxygen O2 Source Room air - Labs Labs: Laboratory Tests 08/14/20 08/14/20 08/14/20 17:15 17:15 17:15 WBC 5.8 RBC 4.67 Hgb 14.0 Hct 42.9 MCV 91.9 MCH 30.0 MCHC 32.6 RDW 12.7 Plt Count 319 MPV 8.8 Neut # (Auto) 3.1 Lymph # (Auto) 1.9 [place] # (Auto) 0.6 Eos # (Auto) 0.1 Baso # (Auto) 0.0 Absolute Nucleated RBC 0.00 Nucleated RBC % 0.0 Sodium 138 Potassium 4.2 Chloride 102 Carbon Dioxide 25 Anion Gap 11.0 BUN 12 Creatinine 0.7 Estimated GFR (MDRD) 106 Glucose 99 Calcium 9.3 Total Bilirubin 0.4 AST 17 ALT 15 Alkaline Phosphatase 35 L Total Protein 7.4 Albumin 4.0 Globulin 3.4 Albumin/Globulin Ratio 1.2 Lipase 30 Urine Color Urine Clarity Urine pH Ur Specific [place] Urine Protein Urine Glucose (UA) Urine Ketones Urine Occult Blood Urine Nitrite Urine Bilirubin Urine Urobilinogen Ur Leukocyte Esterase Ur Microscopic Review Urine Culture Comments Urine HCG, Qual Infectious [place] Assay NEGATIVE 08/14/20 08/14/20 17:20 17:20 WBC RBC Hgb Hct MCV MCH MCHC RDW Plt Count MPV Neut # (Auto) Lymph # (Auto) [place] # (Auto) Eos # (Auto) Baso # (Auto) Absolute Nucleated RBC Nucleated RBC % Sodium Potassium Chloride Carbon Dioxide Anion Gap BUN Creatinine Estimated GFR (MDRD) Glucose Calcium Total Bilirubin AST ALT Alkaline Phosphatase Total Protein Albumin Globulin Albumin/Globulin Ratio Lipase Urine Color YELLOW Urine Clarity CLEAR Urine pH 7.0 Ur Specific [place] 1.015 1.015 Urine Protein NEGATIVE Urine Glucose (UA) NEGATIVE Urine Ketones NEGATIVE Urine Occult Blood TRACE-INTA Urine Nitrite NEGATIVE Urine Bilirubin NEGATIVE Urine Urobilinogen 0.2 (NORMAL) Ur Leukocyte Esterase NEGATIVE Ur Microscopic Review NOT INDICATED Urine Culture Comments NOT INDICATED Urine HCG, Qual NEGATIVE Infectious [place] Assay PD MEDICAL DECISION MAKING - ED course Complexity details: reviewed results, re-evaluated patient, considered differential, d/w patient, d/w family ED course: No significant lab abnormalities. Likely viral gastroenteritis. Patient and family refuse any further work-up at this time or treatment with IV fluids. They state they will follow-up with her doctor for further care. Patient is well-appearing, nontoxic. Afebrile. Tolerating p.o. without difficulty. Patient and family counseled regarding signs and symptoms for which I believe and urgent re-evaluation would be necessary. Patient with good understanding of and agreement to plan and is comfortable going home at this time This document was made in part using voice recognition software. While efforts are made to proofread this document, sound alike and grammatical errors may occur. Departure - Departure Disposition: 01 Home, Self Care Clinical Impression: Viral gastroenteritis Condition: Good Instructions: ED Gastroenteritis Viral Follow-Up: Alexi Peguero DO [Primary Care Provider] - Within 1 week Comments: Go home and rest. Drink plenty of fluids. Return if you worsen. Your labs do not show any acute abnormalities tonight Discharge Date/Time: 08/14/20 20:37
[2020-08-14 20:38] VITALS: BP 125/66
== END 2020-08-14 20:37 | disposition home or self-care (01) ==
LOC: ED 16:41
DX: A08.4 Viral intestinal infection, unspecified (principal)
CPT/HCPCS: 36415; 80053; 81001; 81003; 81025; 83690; 85025; 86308; 87086; 99283; 99284

== ENCOUNTER 2020-08-20 10:30 | Outpatient (CLI) | payer OTHER | END 2020-08-20 23:59 | disposition home or self-care (01) | LOC: LAB.R 10:30 | PROVIDERS: ATTEND Nurse Practitioner | DX: K58.9 Irritable bowel syndrome, unspecified (principal); R10.84 Generalized abdominal pain | CPT/HCPCS: 83630; 87177; 87209; 87493 ==

== ENCOUNTER 2020-08-28 16:12 | Outpatient (CLI) | payer OTHER ==
--- NOTE | 2020-08-28 17:31 | Ultrasound Report ---
PROCEDURE: Pelvic w/Transvaginal INDICATIONS: ENDOMETRIOSIS TECHNIQUE: Real-time scanning was performed of the pelvic organs, with image documentation. Additional endovagi nal scanning was necessary due to incomplete visualization of the adnexal and endometrial structures by transabdominal scanning. COMPARISON: None. FINDINGS: Transabdominal scanning: Limited scanning through the kidneys shows no hydronephrosis. No pathologi c free abdominal or pelvic fluid. Endovaginal scanning: Uterus: Uterus is normal in size at 7.2 x 3.2 x 5.6 cm. The endometrium measures 4 mm in combined t hickness. An IUD is present in the uterine fundus and has a normal sonographic appearance. Ovaries: The right ovary measures 2.7 x 1.0 x 1.3 cm and has a normal echotexture. The left ovary me asures 2.2 x 1.6 x 1.4 cm and has a normal echotexture. IMPRESSION: 1. Unremarkable pelvic ultrasound. IUD in the uterine fundus. Reviewed by: Courtney Garcia MD on 08/28/2020 5:29 PM PDT Approved by: Courtney Garcia MD on 08/28/2020 5:29 PM PDT Station ID: [id number]
== END 2020-08-28 16:13 | disposition home or self-care (01) ==
LOC: DI 16:12
PROVIDERS: ATTEND Nurse Practitioner
DX: N80.9 Endometriosis, unspecified (principal); Z97.5 Presence of (intrauterine) contraceptive device
CPT/HCPCS: 76830; 76856

== ENCOUNTER 2020-09-03 08:00 | Outpatient (CLI) | payer OTHER | END 2020-09-03 08:01 | disposition home or self-care (01) | LOC: LAB.R 08:00 | PROVIDERS: ATTEND Nurse Practitioner | DX: K58.9 Irritable bowel syndrome, unspecified (principal); R10.84 Generalized abdominal pain | CPT/HCPCS: 83630; 87177; 87209; 87493 ==

== ENCOUNTER 2020-10-09 12:22 | Outpatient (CLI) | payer OTHER ==
[2020-10-09 13:06] LABS: MEAN CORPUSCULAR HEMOGLOBIN 29.8 pg (27.0-31.0); MEAN CORPUSCULAR HGB CONC 32.7 g/dL (32.0-36.0); MEAN CORPUSCULAR VOLUME 91.1 fL (81.0-99.0); MEAN PLATELET VOLUME 9.3 fL (7.9-10.8); RED BLOOD COUNT 4.7 10^6/uL (4.20-5.40); RED CELL DISTRIBUTION WIDTH 12.5 % (12.0-15.0)
[2020-10-09 13:37] LABS: ALBUMIN 4.2 g/dL (3.2-5.5); ALBUMIN/GLOBULIN RATIO 1.2 (1.0-2.2); BILIRUBIN,TOTAL 0.5 mg/dL (0.2-1.0); CALCIUM 9.5 mg/dL (8.5-10.3); CREATININE 0.8 mg/dL (0.4-1.0); TOTAL PROTEIN 7.6 g/dL (6.7-8.2)
[2020-10-09 13:42] LABS: FERRITIN 23.5 ng/mL (11.0-306.8)
[2020-10-09 13:57] LABS: HEMOGLOBIN A1c% 5.1 % (4.27-6.07)
== END 2020-10-09 12:23 | disposition home or self-care (01) ==
LOC: LAB 12:22
PROVIDERS: ATTEND Obstetrics & Gynecology
DX: R00.0 Tachycardia, unspecified (principal); R00.2 Palpitations; R10.84 Generalized abdominal pain; L65.9 Nonscarring hair loss, unspecified
CPT/HCPCS: 36415; 80053; 82306; 82728; 83036; 83540; 84443; 84466; 85027

== ENCOUNTER 2021-07-15 13:58 | Emergency (ER) | payer OTHER ==
[2021-07-15] MEDS ORDERED: IOVERSOL 320 50 ML VIAL ONE (14:20)
[2021-07-15] MEDS ORDERED: IOPAMIDOL-300 50 ML VIAL ONE ×2 (14:21)
[2021-07-15 14:34] LABS: BASOPHILS % (AUTO) 0.4 %; EOSINOPHILS # (AUTO) 0.1 10^3/uL (0.0-0.7); EOSINOPHILS % (AUTO) 1.5 %; HCT - HEMATOCRIT 40.8 % (37.0-47.0); HGB - HEMOGLOBIN 13.6 g/dL (12.0-16.0); LYMPHOCYTES # (AUTO) 1.7 10^3/uL (1.5-3.5); LYMPHOCYTES % (AUTO) 22.1 %; MEAN CORPUSCULAR HEMOGLOBIN 31.7 pg (27.0-31.0); MEAN CORPUSCULAR HGB CONC 33.3 g/dL (32.0-36.0); MEAN CORPUSCULAR VOLUME 95.1 fL (81.0-99.0); MEAN PLATELET VOLUME 8.8 fL (7.9-10.8); MONOCYTES # (AUTO) 0.4 10^3/uL (0.0-1.0); NEUTROPHILS # (AUTO) 5.4 10^3/uL (1.5-6.6); NEUTROPHILS % (AUTO) 70.6 %; PLT - PLATELET COUNT 295 10^3/uL (130-450); RED BLOOD COUNT 4.29 10^6/uL (4.20-5.40); RED CELL DISTRIBUTION WIDTH 13.1 % (12.0-15.0); WHITE BLOOD COUNT 7.6 x10^3/uL (4.8-10.8)
[2021-07-15] MEDS ORDERED: GABAPENTIN 100 MG CAPSULE PO STA (14:40)
--- NOTE | 2021-07-15 14:50 | ED Physician Documentation ---
PD HPI ABD PAIN - Stated complaint Stated Complaint: L SIDE ABD PX - Chief complaint Chief Complaint: Abd Pain - History obtained from History obtained from: Patient - Additional information Additional information: 21-year-old woman has been dealing with abdominal and pelvic pain since an endometriosis surgery with sacral neurectomy couple of years ago. She has had an extensive work-up for this including colonoscopies, pelvic MRI. She just had a prolonged visit to the [facility] and is starting biofeedback therapy. Part of the issue is constipation related to the neurectomy and often has to do enemas and laxatives related to same. It is left lower quadrant pain that is worse after eating may be 15 to 30 minutes after eating. She was told by the [facility] if pain worsens she should present here for CT. 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 Psych: Depression - Past Surgical History Past Surgical History: Yes /STARS SPECIALIST: Other HEENT: Myringotomy (tubes) - Present Medications Home Medications: Ambulatory Orders Medication Instructions Recorded Confirmed Montelukast Sodium [Singulair] 10 mg PO DAILY 08/14/15 07/12/19 Norethindrone [Ara] 0.35 mg PO DAILY 07/12/19 07/12/19 Propranolol [Inderal] 10 mg PO BID 07/12/19 07/12/19 buPROPion HCL [Bupropion Xl] 150 mg PO DAILY 07/12/19 07/12/19 ALPRAZolam [Xanax] 0.5 mg PO Q8H PRN #20 tablet 07/14/19 Albuterol 2.5 mg INH Q4HR PRN neb 07/14/19 Peg 3350/Na Sulf,Bicarb,Cl/KCl 4,000 ml PO ONCE #1 bottle 10/15/19 [Golytely] predniSONE [Deltasone] 60 mg PO DAILY 5 Days #15 tablet 02/10/20 Sodium/Potassium/Mag Sulfates 177 ml PO ONCE #1 kit 01/16/21 [Suprep Bowel Prep Kit] Budesonide [Entocort EC] 9 mg PO DAILY #90 cap 07/15/21 Gabapentin [Neurontin] 300 mg PO TID #60 cap 07/15/21 metroNIDAZOLE [Flagyl] 500 mg PO TID #21 tablet 07/15/21 - Allergies Allergies/Adverse Reactions: Allergies Allergy/AdvReac Type Severity Reaction Status Date / Time aripiprazole [From Abilify] Allergy Unknown Verified 07/15/21 14:14 hydrocodone Allergy Unknown Verified 07/15/21 14:14 quetiapine Allergy Unknown Verified 07/15/21 14:14 venlafaxine Allergy Unknown Verified 07/15/21 14:14 seasonal allergies Allergy Respiratory Uncoded 07/15/21 14:14 - Social History Does the pt smoke?: No Smoking Status: Never smoker Does the pt drink ETOH?: Yes Does the pt have substance abuse?: No - Immunizations Immunizations are current?: Yes - POLST Patient has POLST: No PD ED PE NORMAL - Vitals Vital signs reviewed: Yes - General General: Alert and oriented X 3, No acute distress - Abdomen Abdomen: Normal bowel sounds, Soft, Non tender - Neuro Neuro: Alert and oriented X 3, Normal speech Results - Vitals Vitals: Vital Signs - 24 hr 07/15/21 14:10 Temperature 36.8 C Heart Rate 88 Respiratory 16 Rate Blood Pressure 124/68 O2 Saturation 99 Oxygen O2 Source Room air - Labs Labs: Laboratory Tests 07/15/21 07/15/21 14:28 14:28 WBC 7.6 RBC 4.29 Hgb 13.6 Hct 40.8 MCV 95.1 MCH 31.7 H MCHC 33.3 RDW 13.1 Plt Count 295 MPV 8.8 Neut # (Auto) 5.4 Lymph # (Auto) 1.7 [place] # (Auto) 0.4 Eos # (Auto) 0.1 Baso # (Auto) 0.0 Absolute Nucleated RBC 0.00 Nucleated RBC % 0.0 Sodium 135 Potassium 3.4 L Chloride 103 Carbon Dioxide 25 Anion Gap 7.0 BUN 10 Creatinine 0.8 Estimated GFR (MDRD) 90 Glucose 146 H Calcium 9.4 Total Bilirubin 0.8 AST 19 ALT 19 Alkaline Phosphatase 37 L Total Protein 7.9 Albumin 4.4 Globulin 3.5 Albumin/Globulin Ratio 1.3 Lipase 33 PD MEDICAL DECISION MAKING - ED course ED course: 21-year-old woman presents with exacerbation of chronic abdominal pain felt related to prior surgery with sacral neurectomy. Benign exam. Directed here by the [facility] for CT showing mild colitis. We also trialed a lidocaine enema, it was ineffective. Plan at this point is to trial some Flagyl, increase her gabapentin, and seems reasonable to trial some budesonide as well pending follow -up. Departure - Departure Disposition: 01 Home, Self Care Clinical Impression: Abdominal pain Qualifiers: Abdominal location: left lower quadrant Qualified Code(s): R10.32 - Left lower quadrant pain Condition: Good Record reviewed to determine appropriate education?: Yes Instructions: ED Abdominal Pain Unkn Cause Prescriptions: Budesonide [Entocort EC] 9 mg PO DAILY #90 cap metroNIDAZOLE [Flagyl] 500 mg PO TID #21 tablet Gabapentin [Neurontin] 300 mg PO TID #60 cap Comments: Labs today were unremarkable. He did have evidence of mild colitis on CT. Seems reasonable to trial some Flagyl and budesonide for this. Return if worsening, or if new symptoms develop. Follow-up with your primary care physicians as you have been. Prescription sent electronically to [facility] in [place].
[2021-07-15] MEDS ORDERED: LIDOCAINE 2% URO-JET 5 ML SYRINGE UR STA (14:51)
[2021-07-15 14:58] LABS: ALBUMIN 4.4 g/dL (3.2-5.5); ALBUMIN/GLOBULIN RATIO 1.3 (1.0-2.2); BILIRUBIN,TOTAL 0.8 mg/dL (0.2-1.0); CALCIUM 9.4 mg/dL (8.5-10.3); CREATININE 0.8 mg/dL (0.4-1.0); POTASSIUM 3.4 mmol/L (3.5-5.0); TOTAL PROTEIN 7.9 g/dL (6.7-8.2)
[2021-07-15] MEDS ORDERED: IOPAMIDOL-300 50 ML VIAL IVP ONE (15:43)
[2021-07-15] MEDS ORDERED: IOVERSOL 320 50 ML VIAL PO ONE (15:44)
--- NOTE | 2021-07-15 16:06 | CT Report ---
PROCEDURE: Abdomen/Pelvis W INDICATIONS: IV and PO, pelvic pain CONTRAST: IV CONTRAST: Isovue 300 ml: 100 PO CONTRAST: Optiray 320 ml50 TECHNIQUE: After the administration of IV and by mouth contrast, 5 mm thick sections acquired from the diaphragm s to the symphysis. 5 mm thick coronal and sagittal reformats were acquired. For radiation dose red uction, the following was used: automated exposure control, adjustment of mA and/or kV according to patient size. COMPARISON: CT abdomen pelvis 10/15/2019 FINDINGS: Image quality: Excellent. ABDOMEN: Lung bases: Lung bases are clear. Heart size is normal. Solid organs: Liver is prominent size. Spleen is prominent in size. No focal lesions are identified. Gallbladder is unremarkable Biliary system is non dilated. Pancreas enhances normally. No adrena l nodules. Kidneys demonstrate normal size and enhancement, without hydronephrosis. Peritoneum and bowel: Bowel loops are nonobstructive. There is thickening with minimal surrounding i nflammatory change descending extending into the sigmoid colon. Fluid-filled proximal colonic loops a re also noted. Nodes and vessels: No retroperitoneal or mesenteric adenopathy by size criteria. Aorta and inferior vena cava are normal in size. Miscellaneous: No ventral hernias. PELVIS: Genitourinary: Bladder wall thickness is normal. IUD is noted. Miscellaneous: No inguinal hernias or adenopathy. Bones: No suspicious bony lesions. No vertebral body compression fractures. IMPRESSION: 1. Mild appearance of thickening with inflammatory change within the left colon as described above. P roximal fluid-filled loops are noted. Overall appearance is suggestive of infection or inflammation s uch as colitis. Reviewed by: Shelia Bryan MD on 07/15/2021 4:05 PM PDT Approved by: Shelia Bryan MD on 07/15/2021 4:05 PM PDT Station ID: [id number]
[2021-07-15] MEDS ORDERED: metroNIDAZOLE 250 MG TABLET PO STA (16:21)
[2021-07-15 16:51] VITALS: BP 128/72
== END 2021-07-15 16:51 | disposition home or self-care (01) ==
LOC: ED 13:58
DX: R10.32 Left lower quadrant pain (principal)
CPT/HCPCS: 36415; 74177; 80053; 83690; 85025; 99283; 99284; A9270; Q9967

== ENCOUNTER 2021-08-15 15:26 | Emergency (ER) | payer OTHER ==
[2021-08-15 15:47] LABS: GLUCOSE, URINE (UA) NEGATIVE (NEGATIVE); KETONES,URINE (UA) >=80 mg/dL (NEGATIVE); LEUKOCYTE ESTERASE, URINE NEGATIVE (NEGATIVE); NITRITE,URINE NEGATIVE (NEGATIVE); OCCULT BLOOD,URINE MODERATE (NEGATIVE); PROTEIN,URINE NEGATIVE (NEGATIVE); UROBILINOGEN,URINE 0.2 (NORMAL) E.U./dL (NORMAL)
[2021-08-15 15:50] LABS: BILIRUBIN,URINE NEGATIVE (NEGATIVE); CLARITY,URINE HAZY (CLEAR); ICTOTEST,URINE NEGATIVE
[2021-08-15 15:51] LABS: HCG UR QUAL NEGATIVE
[2021-08-15] MEDS ORDERED: SODIUM CHLORIDE 0.9% 1,000 ML IV STA (15:55)
[2021-08-15] MEDS ORDERED: KETOROLAC 30 MG/ML VIAL IVP STA (15:55)
--- NOTE | 2021-08-15 15:57 | ED Physician Documentation ---
PD HPI ABD PAIN - Stated complaint Stated Complaint: ABD PX, VOMITING - Chief complaint Chief Complaint: Abd Pain - History obtained from History obtained from: Patient - History of Present Illness Timing - onset: Yesterday Timing - duration: Days (2) Timing - details: Gradual onset, Still present Quality: Cramping, Sharp, Pain Location: LLQ Improved by: Laying still Worsened by: Eating, Position, Palpation Associated symptoms: Nausea, Vomiting Similar symptoms before: Diagnosis (colitis) Recently seen: Clinic, Emergency Dept - Additional information Additional information: 21-year-old female with a history of endometriosis has had a procedure to ablate a nerve following that 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 She has had some problems with chronic constipation. She has now developed colitis and she has been treated over the past month with Flagyl and this required the addition of Augmentin and this did help. She was subsequently administered a second course when she had recurrence of her pain. She has finished her second course of antibiotic 2 days ago she has now developed nausea vomiting and abdominal pain similar to what she has had previously. She is on a bowel program where she uses GoLYTELY and enema on a daily basis for regular control of her bowel. She is in a study at the [facility] to attempt to regain control of her sphincter. Review of Systems Constitutional: denies: Fever Eyes: reports: Decreased vision (fadded vision this morning resolved now) Ears: denies: Ear pain Nose: denies: Rhinorrhea / runny nose, Congestion Throat: denies: Sore throat Cardiac: denies: Chest pain / pressure, Palpitations Respiratory: denies: Dyspnea, Cough GI: reports: Abdominal Pain, Nausea, Vomiting, Other (has a bowel program that is working). 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 Psych: Depression - Past Surgical History Past Surgical History: Yes /PANTOGRAPH MACHINE SET UP OPERATOR: Other HEENT: Myringotomy (tubes) - Present Medications Home Medications: Ambulatory Orders Medication Instructions Recorded Confirmed Montelukast Sodium [Singulair] 10 mg PO DAILY 08/14/15 07/12/19 Norethindrone [Ara] 0.35 mg PO DAILY 07/12/19 07/12/19 Propranolol [Inderal] 10 mg PO BID 07/12/19 07/12/19 buPROPion HCL [Bupropion Xl] 150 mg PO DAILY 07/12/19 07/12/19 ALPRAZolam [Xanax] 0.5 mg PO Q8H PRN #20 tablet 07/14/19 Albuterol 2.5 mg INH Q4HR PRN neb 07/14/19 Peg 3350/Na Sulf,Bicarb,Cl/KCl 4,000 ml PO ONCE #1 bottle 10/15/19 [Golytely] predniSONE [Deltasone] 60 mg PO DAILY 5 Days #15 tablet 02/10/20 Sodium/Potassium/Mag Sulfates 177 ml PO ONCE #1 kit 01/16/21 [Suprep Bowel Prep Kit] Budesonide [Entocort EC] 9 mg PO DAILY #90 cap 07/15/21 Gabapentin [Neurontin] 300 mg PO TID #60 cap 07/15/21 metroNIDAZOLE [Flagyl] 500 mg PO TID #21 tablet 07/15/21 Amox/Clav 875/125 [Augmentin] 1 each PO Q12H #20 tablet 08/15/21 Budesonide [Entocort EC] 9 mg PO DAILY #90 cap 08/15/21 metroNIDAZOLE [Flagyl] 500 mg PO BID #20 tablet 08/15/21 - Allergies Allergies/Adverse Reactions: Allergies Allergy/AdvReac Type Severity Reaction Status Date / Time aripiprazole [From Abilify] Allergy Unknown Verified 08/15/21 15:29 hydrocodone Allergy Unknown Verified 08/15/21 15:29 quetiapine Allergy Unknown Verified 08/15/21 15:29 venlafaxine Allergy Unknown Verified 08/15/21 15:29 seasonal allergies Allergy Respiratory Uncoded 08/15/21 15:29 - Social History Does the pt smoke?: No Smoking Status: Never smoker Does the pt drink ETOH?: Yes Does the pt have substance abuse?: No - Immunizations Immunizations are current?: Yes - POLST Patient has POLST: No PD ED PE NORMAL - Vitals Vital signs reviewed: Yes (normal ) - General General: Alert and oriented X 3, No acute distress, Well developed/nourished - HEENT HEENT: Atraumatic, PERRL, EOMI - Neck Neck: Supple, no meningeal sign, No bony TTP - Cardiac Cardiac: RRR, No murmur - Respiratory Respiratory: No respiratory distress, Clear bilaterally - Abdomen Abdomen: Normal bowel sounds, Soft, Non distended, No organomegaly, Other (tender across the lower abdomen and LLQ. Mild garding. No referred tenderness) - Back Back: No CVA TTP, No spinal TTP - Derm Derm: Normal color, Warm and dry, No rash - Extremities Extremities: No deformity, No edema - Neuro Neuro: Alert and oriented X 3, loan service officer 2-12 intact, No motor deficit, No sensory deficit, Normal speech Eye Opening: Spontaneous Motor: Obeys Commands Verbal: Oriented GCS Score: 15 - Psych Psych: Normal mood, Normal affect Results - Vitals Vitals: Vital Signs - 24 hr 08/15/21 08/15/21 08/15/21 15:29 16:47 17:14 Temperature 36.5 C Heart Rate 100 90 80 Respiratory 16 16 16 Rate Blood Pressure 120/66 125/74 117/72 O2 Saturation 100 98 98 08/15/21 08/15/21 08/15/21 18:24 19:06 19:55 Temperature Heart Rate 84 118 H 94 Respiratory 13 16 18 Rate Blood Pressure 117/69 131/80 H 119/69 O2 Saturation 97 97 97 Oxygen O2 Source Room air - Labs Labs: Laboratory Tests 08/15/21 08/15/21 08/15/21 15:41 16:05 16:05 WBC 5.6 RBC 4.44 Hgb 14.1 Hct 42.0 MCV 94.6 MCH 31.8 H MCHC 33.6 RDW 13.5 Plt Count 294 MPV 9.0 Neut # (Auto) 3.4 Lymph # (Auto) 1.7 [place] # (Auto) 0.3 Eos # (Auto) 0.1 Baso # (Auto) 0.0 Absolute Nucleated RBC 0.00 Nucleated RBC % 0.0 Sodium 138 Potassium 3.3 L Chloride 105 Carbon Dioxide 23 Anion Gap 10.0 BUN 8 Creatinine 0.8 Estimated GFR (MDRD) 90 Glucose 154 H Calcium 9.6 Total Bilirubin 0.7 AST 19 ALT 17 Alkaline Phosphatase 34 L Total Protein 7.6 Albumin 4.5 Globulin 3.1 Albumin/Globulin Ratio 1.5 Lipase 29 Urine Color DARK YELLOW Urine Clarity HAZY Urine pH 6.0 Ur Specific [place] 1.025 Urine Protein NEGATIVE Urine Glucose (UA) NEGATIVE Urine Ketones >=80 H Urine Occult Blood MODERATE H Urine Nitrite NEGATIVE Urine Bilirubin NEGATIVE Urine Urobilinogen 0.2 (NORMAL) Ur Leukocyte Esterase NEGATIVE Urine RBC 6-10 H Urine WBC 0-3 Ur Squamous Epith Cells FEW Squamous Urine Crystals 3-5 Calcium Oxalate Urine Bacteria Few Ur Microscopic Review INDICATED Urine Culture Comments NOT INDICATED Urine HCG, Qual NEGATIVE - Rads (name of study) CT ab pel with Radiology: Prelim report reviewed (Impression: Distal colonic inflammatory change can be seen, which overall appears worse than on 07/15/2021 examination. Please consider infectious and inflammatory causes of colitis. Ischemia is considered to be much less likely. No findings of perforation or abscess can be seen. Incidental note ), EMP read indepedently, See rad report PD MEDICAL DECISION MAKING - ED course Complexity details: reviewed results, re-evaluated patient, considered differential, d/w patient, d/w family, d/w media sales consultant (Chelsea recommends re- scanning prior to treatment regimen. ) ED course: 21-year-old female with a history of chronic pelvic and abdominal pain related to endometriosis and procedures done for that has recently been evaluated here in the emergency department for colitis which appears to have been stercoral colitis and she seems to have resolved this radiographically in the proximal colon but not the distal portion. She has abnormal pain response and has had issues with pain response for quite some time. I discussed with the patient use of a ketamine infusion to attempt to reset her brainstem pain suppression. The patient is interested in attempting this and she is administered 35 mg of ketamine over 40 minutes with a milligram of Ativan prior to initiation of the infusion. I discussed this infusion with the patient's mother and with Dr. Ramos who will be taking over the case as I leave shift here this evening. Departure - Departure Disposition: 01 Home, Self Care Clinical Impression: Colitis Condition: Stable Instructions: ED Colitis Ulcerative Follow-Up: Amber Garcia PA-C [Primary Care Provider] - Casi Tran MD [Provider Admit Priv/Credential] - Prescriptions: Amox/Clav 875/125 [Augmentin] 1 each PO Q12H #20 tablet Budesonide [Entocort EC] 9 mg PO DAILY #90 cap metroNIDAZOLE [Flagyl] 500 mg PO BID #20 tablet Discharge Date/Time: 08/15/21 19:55
[2021-08-15 16:00] LABS: WBC,URINE 0-3 /HPF (0-5)
[2021-08-15 16:01] LABS: BACTERIA,URINE Few /HPF (None Seen); CRYSTALS,URINE 3-5 Calcium Oxalate /LPF; SQUAMOUS EPITHELIAL CELL,UR FEW Squamous (<= Few)
[2021-08-15 16:11] LABS: BASOPHILS % (AUTO) 0.4 %; EOSINOPHILS # (AUTO) 0.1 10^3/uL (0.0-0.7); HGB - HEMOGLOBIN 14.1 g/dL (12.0-16.0); LYMPHOCYTES # (AUTO) 1.7 10^3/uL (1.5-3.5); LYMPHOCYTES % (AUTO) 29.7 %; MEAN CORPUSCULAR HEMOGLOBIN 31.8 pg (27.0-31.0); MEAN CORPUSCULAR HGB CONC 33.6 g/dL (32.0-36.0); MEAN CORPUSCULAR VOLUME 94.6 fL (81.0-99.0); MONOCYTES # (AUTO) 0.3 10^3/uL (0.0-1.0); MONOCYTES % (AUTO) 5.8 %; NEUTROPHILS # (AUTO) 3.4 10^3/uL (1.5-6.6); NEUTROPHILS % (AUTO) 61.9 %; PLT - PLATELET COUNT 294 10^3/uL (130-450); RED BLOOD COUNT 4.44 10^6/uL (4.20-5.40); RED CELL DISTRIBUTION WIDTH 13.5 % (12.0-15.0); WHITE BLOOD COUNT 5.6 x10^3/uL (4.8-10.8)
[2021-08-15 16:25] LABS: ALBUMIN 4.5 g/dL (3.2-5.5); ALBUMIN/GLOBULIN RATIO 1.5 (1.0-2.2); BILIRUBIN,TOTAL 0.7 mg/dL (0.2-1.0); CALCIUM 9.6 mg/dL (8.5-10.3); CREATININE 0.8 mg/dL (0.4-1.0); POTASSIUM 3.3 mmol/L (3.5-5.0); TOTAL PROTEIN 7.6 g/dL (6.7-8.2)
[2021-08-15] MEDS ORDERED: ONDANSETRON 4 MG/2 ML VIAL IVP STA (16:33)
[2021-08-15] MEDS ORDERED: MORPHINE 2 MG/ML CARPUJECT IVP STA ×2 (16:33→17:43)
[2021-08-15] MEDS ORDERED: IOVERSOL 320 100 ML VIAL IVP ONE ×2 (16:59→17:41)
[2021-08-15] MEDS ORDERED: KETAMINE 35 MG in SODIUM CHLORIDE 0.9% 100ML 100 ML IV STA (18:00)
[2021-08-15] MEDS ORDERED: LORazepam 2 MG/ML VIAL IVP STA (18:01)
--- NOTE | 2021-08-15 18:01 | CT Report ---
PROCEDURE: Abdomen/Pelvis W INDICATIONS: LLQ pain CONTRAST: IV CONTRAST: Optiray 320 ml: 100 PO CONTRAST: *NO PO CONTRAST TECHNIQUE: After the administration of IV contrast, 5 mm thick sections acquired from the diaphragms to the symp hysis. 5 mm thick coronal and sagittal reformats were acquired. For radiation dose reduction, the f ollowing was used: automated exposure control, adjustment of mA and/or kV according to patient size. COMPARISON: 07/15/2021 FINDINGS: Image quality: Excellent. ABDOMEN: Lung bases: Lung bases are clear. Heart size is normal. Solid organs: Liver and spleen are normal in size and enhancement. An accessory splenule is inciden tally noted along the hilum of the primary spleen. Gallbladder wall does not appear thickened. Biliary system is non dilated. Pancreas enhances normally. No adrenal nodules. Kidneys demonstrate normal size and enhancement, without hydronephrosis. Peritoneum and bowel: There is generalized wall thickening seen involving the distal colon, which beg ins at the level of the transverse colon and continues through the rectum. Minimal surrounding inflam matory changes are seen. No free air or significant free fluid can be seen. No abscess collection can be seen. No dilated loops of small bowel are seen. Nodes and vessels: No retroperitoneal or mesenteric adenopathy by size criteria. Aorta and inferior vena cava are normal in size. Miscellaneous: No ventral hernias. PELVIS: Genitourinary: Bladder wall thickness is normal. An IUD is seen at the expected location. Miscellaneous: No inguinal hernias or adenopathy. Bones: No suspicious bony lesions. No vertebral body compression fractures. IMPRESSION: Distal colonic inflammatory change can be seen, which overall appears worse than on the 07/15/2021 examination. Please consider infectious and inflammatory causes of colitis. Ischemia is con sidered to be much less likely. No findings of perforation or abscess can be seen. Incidental note is made of: Accessory splenule IUD Reviewed by: North Zimmer MD on 08/15/2021 5:00 PM [facility] Approved by: North Zimmer MD on 08/15/2021 5:00 PM [facility] Station ID: [id number]
[2021-08-15] MEDS ORDERED: KETAMINE 500 MG/10 ML VIAL ONE (18:11)
[2021-08-15] MEDS ORDERED: metroNIDAZOLE 500 MG/100 ML 500 MG/100 ML BAG IV ONE (18:17)
--- NOTE | 2021-08-15 19:19 | ED Physician Documentation ---
ED Addendum - Addendum Addendum: 08/15/21 19:[address] Garay at shift change. Briefly this is a 21-year-old woman with chronic pelvic and rectal pain as previously documented. CT showing increased colitis and Dr. Garay is treating after consultation with surgery with Augmentin and Flagyl. Also restarting the budesonide. She did feel a lot better after a ketamine infusion.
[2021-08-15 19:57] VITALS: BP 119/69
== END 2021-08-15 19:55 | disposition home or self-care (01) ==
LOC: ED 15:26
DX: K52.9 Noninfective gastroenteritis and colitis, unspecified (principal)
CPT/HCPCS: 36415; 74177; 80053; 81001; 81025; 83690; 85025; 96361; 96365; 96368; 96375; 96376; 99284; J2060; Q9967; 81003; 87086

== ENCOUNTER 2021-08-23 09:16 | Outpatient (CLI) | payer OTHER ==
[2021-08-23 10:29] LABS: H. PYLORIS ANTIGEN STL POSITIVE (Negative)
== END 2021-08-23 09:17 | disposition home or self-care (01) ==
LOC: LAB 09:16
PROVIDERS: ATTEND Surgery
DX: K52.9 Noninfective gastroenteritis and colitis, unspecified (principal)
CPT/HCPCS: 81599; 83630; 87045; 87046; 87177; 87209; 87338; 87427; 87449

== ENCOUNTER 2021-09-01 08:00 | Outpatient (CLI) | payer OTHER | END 2021-09-01 23:59 | disposition home or self-care (01) | LOC: LAB.N 08:00 | PROVIDERS: ATTEND Physician Assistant Medical | DX: R52 Pain, unspecified (principal); Z20.822 Contact with and (suspected) exposure to COVID-19 ==

== ENCOUNTER 2021-09-01 08:00 | Outpatient (CLI) | payer OTHER ==
--- NOTE | 2021-09-01 11:53 | XRAY Report ---
PROCEDURE: Chest 2 View X-Ray INDICATIONS: CHEST PX TECHNIQUE: 2 view(s) of the chest. COMPARISON: February 10, 2020. FINDINGS: Surgical changes and devices: None. Lungs and pleura: No pleural effusions or pneumothorax. Lungs are clear. Mediastinum: Mediastinal contours are normal. Heart size is normal. Bones and chest wall: No suspicious bony abnormalities. Soft tissues appear unremarkable. IMPRESSION: No acute cardiopulmonary abnormality. Reviewed by: Tavon Iglesias MD on 09/01/2021 11:51 AM PDT Approved by: Tavon Iglesias MD on 09/01/2021 11:51 AM PDT Station ID: [id number]
== END 2021-09-01 23:59 | disposition home or self-care (01) ==
LOC: DI.N 08:00
PROVIDERS: ATTEND Physician Assistant Medical
DX: R07.9 Chest pain, unspecified (principal); R05.9 Cough, unspecified; M79.10 Myalgia, unspecified site

== ENCOUNTER 2021-10-11 06:19 | Day surgery (SDC) | payer OTHER ==
[2021-10-11] MEDS ORDERED: fentaNYL 100 MCG/2 ML VIAL IVP ONE (06:20)
[2021-10-11] MEDS ORDERED: KETAMINE 500 MG/10 ML VIAL IVP ONE (06:20)
[2021-10-11] MEDS ORDERED: MIDAZOLAM 2 MG/2 ML VIAL IVP ONE (06:20)
[2021-10-11] MEDS ORDERED: PROPOFOL 500 MG/50 ML 500 MG/50 ML VIAL IV ONE (06:20)
[2021-10-11] MEDS ORDERED: PROPOFOL 200 MG/20 ML VIAL IVP ONE (06:20)
[2021-10-11] MEDS ORDERED: LACTATED RINGERS 1,000 ML IV ONE ×2 (06:53→08:53)
--- NOTE | 2021-10-11 07:15 | ANESTHESIA ---
Pre-Anesthesia VS, & Labs - Diagnosis colitis - Procedure colonoscopy Vital Signs: Temp Pulse Resp BP Pulse Ox 37 C 95 19 132/75 H 98 10/11/21 06:30 10/11/21 06:30 10/11/21 06:30 10/11/21 06:30 10/11/21 06:30 Height: 5 ft 5 in Weight (kg): 61.6 kg Body Mass Index: 22.6 BMI Classification: Healthy weight - NPO >8 hours - Is Patient ?: Waiver signed Home Medications and Allergies Home Medications: Ambulatory Orders Dexmethylphenidate HCl [Focalin] 20 mg PO DAILY 10/11/21 Gabapentin [Neurontin] 400 mg PO TID 10/11/21 LORazepam [Ativan] 1 mg ORAL DAILY PRN 10/11/21 Metoclopramide [Reglan] 10 mg PO ACHS PRN 10/11/21 Phenobarb/Hyoscy/Atropine/Scop [Aiftxlozs-Ftv-Bguxg-Scop Elix] 16.2 mg PO ONCE 10/11/21 lamoTRIgine [Lamictal] 200 mg PO DAILY PM 10/11/21 Norethindrone [Ara] 0.35 mg PO DAILY 07/12/19 buPROPion HCL [Bupropion Xl] 150 mg PO DAILY 07/12/19 Dexmethylphenidate HCl [Focalin] 20 mg PO DAILY 10/11/21 Gabapentin [Neurontin] 400 mg PO TID 10/11/21 LORazepam [Ativan] 1 mg ORAL DAILY PRN 10/11/21 Metoclopramide [Reglan] 10 mg PO ACHS PRN 10/11/21 Phenobarb/Hyoscy/Atropine/Scop [Lfqhsdiav-Avt-Bbagr-Scop Elix] 16.2 mg PO ONCE 10/11/21 lamoTRIgine [Lamictal] 200 mg PO DAILY PM 10/11/21 Allergies/Adverse Reactions: Allergies Allergy/AdvReac Type Severity Reaction Status Date / Time aripiprazole [From Abilify] Allergy Unknown Verified 08/15/21 15:29 hydrocodone Allergy Unknown Verified 08/15/21 15:29 quetiapine Allergy Unknown Verified 08/15/21 15:29 venlafaxine Allergy Unknown Verified 08/15/21 15:29 seasonal allergies Allergy Respiratory Uncoded 09/26/21 15:29 Anes History & Medical History - Anesthetic History Anesthesia Complications: reports: No previous complications - Medical History Cardiovascular: reports: None Pulmonary: reports: Asthma (childhood/seasonal) Gastrointestinal: reports: Chronic constipation Urinary: reports: None Neuro: reports: None, Other (ADHD) Musculoskeletal: reports: None Endocrine/Autoimmune: reports: None Blood Disorders: reports: None Skin: reports: None Smoking Status: Never smoker Psychosocial: reports: Depression, Anxiety, Other (Bipolar) History of Cancer?: No - Surgical History General: reports: Colonoscopy Eyes Ears Nose Throat (EENT): reports: Myringotomy (tubes) Gynecologic: reports: Endometrial ablation Exam General: Alert, Oriented x3, Cooperative, No acute distress Dental: WNL Mouth Openin Fingerbreadth Neck Mobility: Normal Mallampati classification: II Thyromental Distance: 4-6 cm Mental/Cognitive Status: Alert/Oriented X3, Normal for patient Plan Anesthesia Type: Total IV Consent for Procedure(s) Verified and Reviewed: Yes Code Status: Attempt Resuscitation ASA classification: 2-Mild systemic disease Is this case an emergency?: No
[2021-10-11 09:18] VITALS: BP 114/66
--- NOTE | 2021-10-11 12:55 | ANESTHESIA POST OP EVALUATION ---
Anesthesia Post Eval - Post Anesthesia Eval Vitals: Last Vital Signs Temp 37.2 C 10/11/21 08:53 Pulse 90 10/11/21 09:17 Resp 22 10/11/21 09:17 BP 114/66 10/11/21 09:17 Pulse Ox 94 10/11/21 09:17 CV Function Including HR & BP: Stable Pain Control: Satisfactory Nausea & Vomiting: Negative Mental Status: Baseline Respiratory Status: Airway Patent Hydration Status: Satisfactory Anesthesia Complications: None
== END 2021-10-11 06:20 | disposition home or self-care (01) ==
LOC: SDS 06:19
PROVIDERS: ATTEND Surgery
PROC: 0DBE8ZX Excision of Large Intestine, Via Natural or Artificial Opening Endoscopic, Diagnostic (ICD-10-PCS; principal; 2021-10-11 07:30)
DX: K52.9 Noninfective gastroenteritis and colitis, unspecified (principal); K59.09 Other constipation; J45.909 Unspecified asthma, uncomplicated; F31.9 Bipolar disorder, unspecified; F90.9 Attention-deficit hyperactivity disorder, unspecified type; F41.9 Anxiety disorder, unspecified; Z79.899 Other long term (current) drug therapy
CPT/HCPCS: 45380; 81599; 83630; 87015; 87177; 87209; 87272; 87329; 87493; J7120; 87045; 87046

== ENCOUNTER 2021-11-20 12:40 | Emergency (ER) | payer OTHER ==
[2021-11-20 13:24] LABS: BILIRUBIN,URINE NEGATIVE (NEGATIVE); GLUCOSE, URINE (UA) NEGATIVE (NEGATIVE); KETONES,URINE (UA) NEGATIVE (NEGATIVE); LEUKOCYTE ESTERASE, URINE NEGATIVE (NEGATIVE); NITRITE,URINE NEGATIVE (NEGATIVE); OCCULT BLOOD,URINE TRACE-INTA (NEGATIVE); PROTEIN,URINE NEGATIVE (NEGATIVE); UROBILINOGEN,URINE 0.2 (NORMAL) E.U./dL (NORMAL)
[2021-11-20 13:25] LABS: BASOPHILS % (AUTO) 0.6 %; CLARITY,URINE CLEAR (CLEAR); EOSINOPHILS # (AUTO) 0.2 10^3/uL (0.0-0.7); EOSINOPHILS % (AUTO) 3.4 %; HCT - HEMATOCRIT 42.9 % (37.0-47.0); HGB - HEMOGLOBIN 14.3 g/dL (12.0-16.0); LYMPHOCYTES % (AUTO) 30.9 %; MEAN CORPUSCULAR HEMOGLOBIN 31.2 pg (27.0-31.0); MEAN CORPUSCULAR HGB CONC 33.3 g/dL (32.0-36.0); MEAN CORPUSCULAR VOLUME 93.5 fL (81.0-99.0); MEAN PLATELET VOLUME 9.1 fL (7.9-10.8); MONOCYTES # (AUTO) 0.4 10^3/uL (0.0-1.0); MONOCYTES % (AUTO) 6.8 %; NEUTROPHILS # (AUTO) 3.8 10^3/uL (1.5-6.6); NEUTROPHILS % (AUTO) 58.1 %; PLT - PLATELET COUNT 347 10^3/uL (130-450); RED BLOOD COUNT 4.59 10^6/uL (4.20-5.40); WHITE BLOOD COUNT 6.5 x10^3/uL (4.8-10.8)
[2021-11-20 13:26] LABS: HCG UR QUAL NEGATIVE
[2021-11-20 13:35] LABS: ALBUMIN 4.6 g/dL (3.2-5.5); ALBUMIN/GLOBULIN RATIO 1.2 (1.0-2.2); BILIRUBIN,TOTAL 0.3 mg/dL (0.2-1.0); CALCIUM 9.3 mg/dL (8.5-10.3); CREATININE 0.7 mg/dL (0.4-1.0); TOTAL PROTEIN 8.3 g/dL (6.7-8.2)
[2021-11-20] MEDS ORDERED: SODIUM CHLORIDE 0.9% 1,000 ML IV STA (14:57)
[2021-11-20] MEDS ORDERED: ONDANSETRON 4 MG/2 ML VIAL IVP STA (14:57)
[2021-11-20] MEDS ORDERED: KETOROLAC 15 MG/ML VIAL IVP STA (14:57)
--- NOTE | 2021-11-20 15:01 | ED Physician Documentation ---
PD HPI ABD PAIN - Stated complaint Stated Complaint: ABD PX/VOMITNG - Chief complaint Chief Complaint: Abd Pain - History obtained from History obtained from: Patient - Additional information Additional information: This is a young woman who has had a complicated abdominal history starting with endometriosis surgery and a sacral neurectomy. Since then she has had problems with abdominal pain, constipation, and an adequate sphincter tone of her rectum. She is had a thorough work-up of this including a couple of CTs showing colitis. Mid-September she had a visibly normal colonoscopy with negative pathology but had a positive C. difficile test at that time. She was on a few weeks worth of vancomycin and stopped in September. More recently she had a recurrence of abdominal pain and diarrhea so was restarted on vancomycin maybe 10 days ago but stopped after about a week due to increased left lower quadrant pain. Now has been vomiting on and off for the last few days and still increased pain. She has diarrhea but only in the mornings. No fevers. 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 HEENT: Myringotomy (tubes) - Present Medications Home Medications: Ambulatory Orders Medication Instructions Recorded Confirmed Norethindrone [Ara] 0.35 mg PO DAILY 07/12/19 10/11/21 buPROPion HCL [Bupropion Xl] 150 mg PO DAILY 07/12/19 10/11/21 Dexmethylphenidate HCl [Focalin] 20 mg PO DAILY 10/11/21 10/11/21 Gabapentin [Neurontin] 400 mg PO TID 10/11/21 10/11/21 LORazepam [Ativan] 1 mg ORAL DAILY PRN 10/11/21 10/11/21 Metoclopramide [Reglan] 10 mg PO ACHS PRN 10/11/21 10/11/21 Phenobarb/Hyoscy/Atropine/Scop 16.2 mg PO ONCE 10/11/21 10/11/21 [Gkrsfobwb-Juz-Tcyxn-Scop Elix] lamoTRIgine [Lamictal] 200 mg PO DAILY PM 10/11/21 10/11/21 Amitriptyline [Elavil] 25 mg PO HS #30 tablet 11/20/21 Budesonide [Entocort EC] 9 mg PO DAILY #60 cap 11/20/21 - Allergies Allergies/Adverse Reactions: Allergies Allergy/AdvReac Type Severity Reaction Status Date / Time aripiprazole [From Abilify] Allergy Unknown Verified 11/20/21 13:00 hydrocodone Allergy Unknown Verified 11/20/21 13:00 quetiapine Allergy Unknown Verified 11/20/21 13:00 venlafaxine Allergy Unknown Verified 11/20/21 13:00 seasonal allergies Allergy Respiratory Uncoded 11/20/21 13:00 - Social History Does the pt smoke?: No Smoking Status: Never smoker Does the pt drink ETOH?: Yes Does the pt have substance abuse?: No - Immunizations Immunizations are current?: Yes - POLST Patient has POLST: No PD ED PE NORMAL - Vitals Vital signs reviewed: Yes - General General: Alert and oriented X 3, No acute distress - HEENT HEENT: PERRL, EOMI - Neck Neck: Supple, no meningeal sign, No bony TTP - Abdomen Abdomen: Other (Lower abdominal tenderness without surgical signs, normal bowel sounds.) - Derm Derm: Normal color, Warm and dry - Extremities Extremities: No edema, No calf tenderness / cord - Neuro Neuro: Alert and oriented X 3, Normal speech Results - Vitals Vitals: Vital Signs - 24 hr 11/20/21 11/20/21 11/20/21 12:55 14:00 16:00 Temperature 36.7 C 36.7 C Heart Rate 96 88 100 Respiratory 18 16 18 Rate Blood Pressure 137/88 H 130/86 H O2 Saturation 100 100 100 11/20/21 16:34 Temperature 36.7 C Heart Rate 100 Respiratory 18 Rate Blood Pressure 137/78 H O2 Saturation 94 Oxygen O2 Source Room air - Labs Labs: Laboratory Tests 11/20/21 11/20/21 11/20/21 13:15 13:15 13:15 WBC 6.5 RBC 4.59 Hgb 14.3 Hct 42.9 MCV 93.5 MCH 31.2 H MCHC 33.3 RDW 12.0 Plt Count 347 MPV 9.1 Neut # (Auto) 3.8 Lymph # (Auto) 2.0 [place] # (Auto) 0.4 Eos # (Auto) 0.2 Baso # (Auto) 0.0 Absolute Nucleated RBC 0.00 Nucleated RBC % 0.0 Sodium 136 Potassium 4.0 Chloride 101 Carbon Dioxide 26 Anion Gap 9.0 BUN 9 Creatinine 0.7 Estimated GFR (MDRD) 105 Glucose 89 Calcium 9.3 Total Bilirubin 0.3 AST 18 ALT 16 Alkaline Phosphatase 36 L Total Protein 8.3 H Albumin 4.6 Globulin 3.7 Albumin/Globulin Ratio 1.2 Lipase 30 Urine Color YELLOW Urine Clarity CLEAR Urine pH 6.0 Ur Specific [place] 1.010 Urine Protein NEGATIVE Urine Glucose (UA) NEGATIVE Urine Ketones NEGATIVE Urine Occult Blood TRACE-INTA Urine Nitrite NEGATIVE Urine Bilirubin NEGATIVE Urine Urobilinogen 0.2 (NORMAL) Ur Leukocyte Esterase NEGATIVE Ur Microscopic Review NOT INDICATED Urine Culture Comments NOT INDICATED Urine HCG, Qual 11/20/21 13:15 WBC RBC Hgb Hct MCV MCH MCHC RDW Plt Count MPV Neut # (Auto) Lymph # (Auto) [place] # (Auto) Eos # (Auto) Baso # (Auto) Absolute Nucleated RBC Nucleated RBC % Sodium Potassium Chloride Carbon Dioxide Anion Gap BUN Creatinine Estimated GFR (MDRD) Glucose Calcium Total Bilirubin AST ALT Alkaline Phosphatase Total Protein Albumin Globulin Albumin/Globulin Ratio Lipase Urine Color Urine Clarity Urine pH Ur Specific [place] Urine Protein Urine Glucose (UA) Urine Ketones Urine Occult Blood Urine Nitrite Urine Bilirubin Urine Urobilinogen Ur Leukocyte Esterase Ur Microscopic Review Urine Culture Comments Urine HCG, Qual NEGATIVE PD MEDICAL DECISION MAKING - ED course ED course: 21-year-old woman with an exacerbation of chronic abdominal pain. She was given some IV fluids, Toradol, Zofran here. Labs are unremarkable. We talked about repeat CT scanning but this would be her third and is many months and after discussion decided not to. Oral nonabsorbable steroids have been helpful in the past, but they understand the need to have a negative C. difficile test first. Also reasonable to trial amitriptyline. 21-year-old woman with exacerbation of chronic abdominal pain. Labs and pelvic sonography were negative we represcribed Entocort but I ordered a C. difficile toxin (not PCR) to be done and she should have this result in B- first. Departure - Departure Disposition: 01 Home, Self Care Clinical Impression: Pelvic pain Condition: Good Record reviewed to determine appropriate education?: Yes Instructions: ED Abdominal Pain Female Non-Specific Abdominal Pain Prescriptions: Amitriptyline [Elavil] 25 mg PO HS #30 tablet Budesonide [Entocort EC] 9 mg PO DAILY #60 cap Comments: Labs and ultrasound were unremarkable today. I sent your prescriptions to [facility] in [place]. As discussed, do not start the Entocort until you have a negative C. difficile test. Follow-up with your doctor to discuss how the new medications are working. Return for new or worsening symptoms.
[2021-11-20] MEDS ORDERED: HYDROmorphone 1 MG/ML CARPUJECT IVP STA (16:09)
[2021-11-20 16:34] VITALS: BP 137/78
[2021-11-20] MEDS ORDERED: diphenhydrAMINE 25 MG CAPSULE PO STA (16:59)
--- NOTE | 2021-11-20 17:00 | Ultrasound Report ---
PROCEDURE: Pelvic w/Transvag+Doppler Comp INDICATIONS: pelvic pain TECHNIQUE: Real-time scanning was performed of the pelvic organs, with image documentation. Additional endovagi nal scanning was necessary due to incomplete visualization of the adnexal and endometrial structures by transabdominal scanning. COMPARISON: 06/28/2020, 02/06/2018 FINDINGS: No pathologic free abdominal or pelvic fluid. Uterus: Uterus is normal in size at 7.2 x 3.6 x 4.7 cm. The uterus is anteflexed and demonstrates a homogeneous echotexture. The endometrium measures 3 mm in combined thickness. An IUD is seen at the expected location. There is a trace amount free fluid seen within the lower uterine segment. Ovaries: The right ovary measures 2.2 x 1.2 x 1.3 cm, with a calculated volume of 1.8 cc and the lef t ovary measures 2.8 x 1.3 x 1.5 cm, with a calculated volume of 2.8 cc. No significant ovarian abno rmalities are seen. There are less than 12 follicles seen on each side. No adnexal masses are seen . Normal-appearing arterial waveforms are confirmed to each ovary. IMPRESSION: Unremarkable study, without a cause of the patient's pain identified. Negative for ovarian torsion. An IUD is seen at the expected location. Note: Concordant preliminary findings given by the container washer upon the completion of the examination to nurse Garcia at 4:30 PM on 11/20/2021. Reviewed by: North Zimmer MD on 11/20/2021 3:58 PM [facility] Approved by: North Zimmer MD on 11/20/2021 3:58 PM [facility] Station ID: [id number]
== END 2021-11-20 17:07 | disposition home or self-care (01) ==
LOC: ED 12:40
DX: R10.2 Pelvic and perineal pain (principal); G89.29 Other chronic pain
CPT/HCPCS: 36415; 76830; 76856; 80053; 81003; 81025; 83690; 85025; 93975; 96361; 96374; 96375; 99283; 99284; A9270; J1170; 81001; 87086

== ENCOUNTER 2021-11-22 08:27 | Outpatient (CLI) | payer OTHER | END 2021-11-22 08:28 | disposition home or self-care (01) | LOC: LAB.R 08:27 | PROVIDERS: ATTEND Surgery | DX: Z53.9 Procedure and treatment not carried out, unspecified reason (principal) | CPT/HCPCS: 87493 ==

== ENCOUNTER 2021-11-24 13:34 | Emergency (ER) | payer OTHER ==
[2021-11-24 13:45] VITALS: BP 135/79
[2021-11-24 14:03] LABS: BILIRUBIN,URINE NEGATIVE (NEGATIVE); GLUCOSE, URINE (UA) NEGATIVE (NEGATIVE); KETONES,URINE (UA) NEGATIVE (NEGATIVE); LEUKOCYTE ESTERASE, URINE NEGATIVE (NEGATIVE); NITRITE,URINE NEGATIVE (NEGATIVE); OCCULT BLOOD,URINE TRACE-INTA (NEGATIVE); PH,URINE 6.5 PH (5.0-7.5); PROTEIN,URINE NEGATIVE (NEGATIVE); UROBILINOGEN,URINE 0.2 (NORMAL) E.U./dL (NORMAL)
[2021-11-24 14:04] LABS: CLARITY,URINE CLEAR (CLEAR)
[2021-11-24 14:07] LABS: BASOPHILS % (AUTO) 0.4 %; EOSINOPHILS # (AUTO) 0.1 10^3/uL (0.0-0.7); EOSINOPHILS % (AUTO) 1.9 %; HCT - HEMATOCRIT 42.8 % (37.0-47.0); HGB - HEMOGLOBIN 14.4 g/dL (12.0-16.0); LYMPHOCYTES # (AUTO) 1.5 10^3/uL (1.5-3.5); LYMPHOCYTES % (AUTO) 21.8 %; MEAN CORPUSCULAR HEMOGLOBIN 31.1 pg (27.0-31.0); MEAN CORPUSCULAR HGB CONC 33.6 g/dL (32.0-36.0); MEAN CORPUSCULAR VOLUME 92.4 fL (81.0-99.0); MEAN PLATELET VOLUME 8.8 fL (7.9-10.8); MONOCYTES # (AUTO) 0.4 10^3/uL (0.0-1.0); MONOCYTES % (AUTO) 6.1 %; NEUTROPHILS # (AUTO) 4.7 10^3/uL (1.5-6.6); NEUTROPHILS % (AUTO) 69.7 %; PLT - PLATELET COUNT 324 10^3/uL (130-450); RED BLOOD COUNT 4.63 10^6/uL (4.20-5.40); RED CELL DISTRIBUTION WIDTH 12.1 % (12.0-15.0); WHITE BLOOD COUNT 6.7 x10^3/uL (4.8-10.8)
[2021-11-24 14:07] LABS: HCG UR QUAL NEGATIVE
[2021-11-24 14:20] LABS: ALBUMIN 4.7 g/dL (3.2-5.5); ALBUMIN/GLOBULIN RATIO 1.3 (1.0-2.2); BILIRUBIN,TOTAL 0.5 mg/dL (0.2-1.0); CALCIUM 10.4 mg/dL (8.5-10.3); CREATININE 0.7 mg/dL (0.4-1.0); TOTAL PROTEIN 8.3 g/dL (6.7-8.2)
[2021-11-24] MEDS ORDERED: iohexoL-300 100 ML VIAL ONE (14:26)
[2021-11-24] MEDS ORDERED: IOPAMIDOL-300 50 ML VIAL ONE (14:27)
[2021-11-24] MEDS ORDERED: HYDROmorphone 1 MG/ML CARPUJECT IVP STA (14:29)
[2021-11-24] MEDS ORDERED: ONDANSETRON 4 MG/2 ML VIAL IVP STA (14:29)
[2021-11-24] MEDS ORDERED: KETOROLAC 15 MG/ML VIAL IVP STA (14:29)
--- NOTE | 2021-11-24 14:31 | ED Physician Documentation ---
PD HPI ABD PAIN - Stated complaint Stated Complaint: LT SIDE ABD PX - Chief complaint Chief Complaint: Abd Pain - History obtained from History obtained from: Patient - Additional information Additional information: 21-year-old woman with chronic abdominal pain. See my prior note from the other day regarding her complicated history. Pain in the left lower quadrant gradually worse over the last couple of days with one episode of nonbloody emesis yesterday. She turned in a C. difficile stool sample to the lab but it looks like it was rejected due to being formed stool. Stools are soft now, no longer diarrhea. Dr. Tran started her on Augmentin for presumed colitis but recommended CT scanning given the severity of the pain. Review of Systems Ten Systems: 10 systems reviewed and negative Constitutional: reports: Reviewed and negative Ears: reports: Reviewed and negative Cardiac: reports: Reviewed and negative Respiratory: reports: Reviewed and negative PD PAST MEDICAL HISTORY - Past Medical History Cardiovascular: None Respiratory: Asthma (childhood/seasonal) Neuro: None, Other (ADHD) Endocrine/Autoimmune: None GI: Chronic constipation SAND SIFTER: Endometriosis : None HEENT: None Psych: Depression, Anxiety Musculoskeletal: None Derm: None - Past Surgical History Past Surgical History: Yes General: Colonoscopy /SAND SIFTER: Endometrial ablation HEENT: Myringotomy (tubes) - Present Medications Home Medications: Ambulatory Orders Medication Instructions Recorded Confirmed Norethindrone [Ara] 0.35 mg PO DAILY 07/12/19 10/11/21 buPROPion HCL [Bupropion Xl] 150 mg PO DAILY 07/12/19 10/11/21 Dexmethylphenidate HCl [Focalin] 20 mg PO DAILY 10/11/21 10/11/21 Gabapentin [Neurontin] 400 mg PO TID 10/11/21 10/11/21 LORazepam [Ativan] 1 mg ORAL DAILY PRN 10/11/21 10/11/21 Metoclopramide [Reglan] 10 mg PO ACHS PRN 10/11/21 10/11/21 Phenobarb/Hyoscy/Atropine/Scop 16.2 mg PO ONCE 10/11/21 10/11/21 [[place]-Wan-Ujvwr-Scop Elix] lamoTRIgine [Lamictal] 200 mg PO DAILY PM 10/11/21 10/11/21 Amitriptyline [Elavil] 25 mg PO HS #30 tablet 11/20/21 Budesonide [Entocort EC] 9 mg PO DAILY #60 cap 11/20/21 Amox/Clav 875/125 [Augmentin 1 tablet PO Q12H 10 Days #20 tablet 11/23/21 875/125 Tab] methylPREDNISolone [Medrol Dose 1 each PO .PACKAGEINSTRUCTIONS 6 11/24/21 Pack] Days #1 each traMADol [Ultram] 100 mg PO Q6H PRN #20 tablet 11/24/21 - Allergies Allergies/Adverse Reactions: Allergies Allergy/AdvReac Type Severity Reaction Status Date / Time aripiprazole [From Abilify] Allergy Unknown Verified 11/24/21 13:45 hydrocodone Allergy Unknown Verified 11/24/21 13:45 quetiapine Allergy Unknown Verified 11/24/21 13:45 venlafaxine Allergy Unknown Verified 11/24/21 13:45 seasonal allergies Allergy Respiratory Uncoded 11/24/21 13:45 - Social History Does the pt smoke?: No Smoking Status: Never smoker Does the pt drink ETOH?: Yes Does the pt have substance abuse?: No - Immunizations Immunizations are current?: Yes - POLST Patient has POLST: No PD ED PE NORMAL - Vitals Vital signs reviewed: Yes - General General: Alert and oriented X 3, No acute distress - Cardiac Cardiac: RRR, No murmur - Respiratory Respiratory: No respiratory distress, Clear bilaterally - Abdomen Abdomen: Normal bowel sounds, Soft, Other (Focally tender in the left lower quadrant without surgical signs. Seems more left lower quadrant laterally than the pelvis per se.) - Back Back: No CVA TTP, No spinal TTP - Derm Derm: Normal color, Warm and dry - Extremities Extremities: No edema, No calf tenderness / cord - Neuro Neuro: Alert and oriented X 3, Normal speech Results - Vitals Vitals: Vital Signs - 24 hr 11/24/21 13:40 Temperature 36.8 C Heart Rate 103 H Respiratory 16 Rate Blood Pressure 135/79 H O2 Saturation 99 Oxygen O2 Source Room air - Labs Labs: Laboratory Tests 11/24/21 11/24/21 11/24/21 13:53 14:00 14:00 WBC 6.7 RBC 4.63 Hgb 14.4 Hct 42.8 MCV 92.4 MCH 31.1 H MCHC 33.6 RDW 12.1 Plt Count 324 MPV 8.8 Neut # (Auto) 4.7 Lymph # (Auto) 1.5 [place] # (Auto) 0.4 Eos # (Auto) 0.1 Baso # (Auto) 0.0 Absolute Nucleated RBC 0.00 Nucleated RBC % 0.0 Sodium 137 Potassium 4.0 Chloride 104 Carbon Dioxide 23 Anion Gap 10.0 BUN 8 Creatinine 0.7 Estimated GFR (MDRD) 105 Glucose 93 Calcium 10.4 H Total Bilirubin 0.5 AST 30 ALT 29 Alkaline Phosphatase 37 L Total Protein 8.3 H Albumin 4.7 Globulin 3.6 Albumin/Globulin Ratio 1.3 Lipase 32 Urine Color YELLOW Urine Clarity CLEAR Urine pH 6.5 Ur Specific [place] 1.010 Urine Protein NEGATIVE Urine Glucose (UA) NEGATIVE Urine Ketones NEGATIVE Urine Occult Blood TRACE-INTA Urine Nitrite NEGATIVE Urine Bilirubin NEGATIVE Urine Urobilinogen 0.2 (NORMAL) Ur Leukocyte Esterase NEGATIVE Ur Microscopic Review NOT INDICATED Urine Culture Comments NOT INDICATED Urine HCG, Qual NEGATIVE PD MEDICAL DECISION MAKING - ED course ED course: 21-year-old woman with an exacerbation of chronic abdominal pain of unclear etiology. CT showing a large stool load on the right side and I spoke with Dr. Tran who recommends magnesium citrate for this. CT read showing mesenteric adenitis otherwise which does not fit the clinical picture necessarily but would not change overall management either. Departure - Departure Disposition: 01 Home, Self Care Clinical Impression: Constipation Qualifiers: Constipation type: slow transit constipation Qualified Code(s): K59.01 - Slow transit constipation Abdominal pain Qualifiers: Abdominal location: left lower quadrant Qualified Code(s): R10.32 - Left lower quadrant pain Condition: Good Instructions: ED Abdominal Pain Female Non-Specific Abdominal Pain Comments: CAT scan today was suggestive of mesenteric adenitis which is inflammation of some lymph nodes. This could be from the prior episode of colitis and may be contributing to your pain. That said there is also a decent volume of stool on the right side and we are treating this with magnesium citrate. Call your doctor to arrange a follow-up appointment, make the next available appointment. In the interim, return anytime if worse or if new symptoms develop. Discharge Date/Time: 11/24/21 17:11
[2021-11-24] MEDS ORDERED: diphenhydrAMINE 25 MG CAPSULE PO STA (15:01)
[2021-11-24] MEDS ORDERED: diphenhydrAMINE INJ 50 MG/ML VIAL IVP STA (15:43)
--- NOTE | 2021-11-24 16:24 | CT Report ---
PROCEDURE: Abdomen/Pelvis W INDICATIONS: IV and PO, abd pain CONTRAST: IV CONTRAST: Optiray 320 ml: 100 PO CONTRAST: Optiray 320 ml50 TECHNIQUE: After the administration of IV and oral contrast, 5 mm thick sections acquired from the diaphragms to the symphysis. 5 mm thick coronal and sagittal reformats were acquired. For radiation dose reducti on, the following was used: automated exposure control, adjustment of mA and/or kV according to homero ent size. COMPARISON: CT dated 08/15/2021 FINDINGS: Image quality: Excellent. ABDOMEN: Lung bases: Lung bases are clear. Heart size is normal. Solid organs: Liver and spleen are normal in size and enhancement. Gallbladder is within normal ramos its Biliary system is non dilated. Pancreas enhances normally. No adrenal nodules. Kidneys demons trate normal size and enhancement, without hydronephrosis. Peritoneum and bowel: Bowel loops demonstrate normal wall thickness and caliber. Visualized portion s of the appendix are normal. No free fluid or air. Nodes and vessels: No retroperitoneal or mesenteric adenopathy by size criteria. Multiple mildly pr ominent subcentimeter mesenteric lymph nodes are present. Aorta and inferior vena cava are normal in size. Miscellaneous: No ventral hernias. PELVIS: Genitourinary: Bladder wall thickness is normal. Intrauterine device is present. Miscellaneous: No inguinal hernias or adenopathy. Bones: No suspicious bony lesions. No vertebral body compression fractures. IMPRESSION: 1. Findings suggestive of mesenteric adenitis. 2. Normal appendix. Reviewed by: Corinne Muñoz MD on 11/24/2021 4:23 PM PST Approved by: Corinne Muñoz MD on 11/24/2021 4:23 PM PST Station ID: [id number]
[2021-11-24] MEDS ORDERED: MAGNESIUM CITRATE 296 ML BOTTLE PO STA (16:41)
[2021-11-24] MEDS ORDERED: IOPAMIDOL-300 50 ML VIAL PO ONE (18:43)
[2021-11-24] MEDS ORDERED: iohexoL-300 100 ML VIAL IVP ONE (18:44)
== END 2021-11-24 17:11 | disposition home or self-care (01) ==
LOC: ED 13:34
DX: K59.01 Slow transit constipation (principal); R10.32 Left lower quadrant pain; G89.29 Other chronic pain
CPT/HCPCS: 36415; 74177; 80053; 81003; 81025; 83690; 85025; 96374; 96375; 96376; 99282; 99285; A9270; J1170; J1200; Q9967; 81001; 87086

== ENCOUNTER 2022-05-24 08:00 | Outpatient (CLI) | payer OTHER ==
[2022-05-24 22:28] LABS: BACTERIAL VAGINOSIS DNA NEGATIVE (NEGATIVE); CANDIDA GLABRATA DNA NEGATIVE (NEGATIVE); CANDIDA GROUP DNA NEGATIVE (NEGATIVE); CANDIDA KRUSEI DNA NEGATIVE (NEGATIVE); TRICHOMONAS VAGINALIS DNA NEGATIVE (NEGATIVE)
== END 2022-05-24 23:59 | disposition home or self-care (01) ==
LOC: LAB 08:00
PROVIDERS: ATTEND Obstetrics & Gynecology
DX: N89.8 Other specified noninflammatory disorders of vagina (principal)
CPT/HCPCS: 81514

== ENCOUNTER 2022-06-15 14:06 | Outpatient (CLI) | payer OTHER ==
--- NOTE | 2022-06-16 09:36 | Ultrasound Report ---
LIMITED ULTRASOUND OF RIGHT BREAST: 06/15/2022 CLINICAL: Focal right breast pain. Comparison is made to exam dated: 03/27/2020 [facility]. Ultrasound of the right breast 10-11 o'clock region was performed. [place] scale images of the real-bill e examination were reviewed. No significant abnormalities were seen sonographically in the right breast. Specifically, no finding to explain the patient's pain in the right breast 10-11 o'clock 8 cm from nipple. IMPRESSION: NEGATIVE There is no sonographic correlate to the patient's focal right breast pain and no evidence of maligna ncy. Clinical follow up as needed. Screening mammography beginning at age 40 is recommended. Findings and recommendations were conveyed to the patient at time of exam. This exam was interpreted at Station ID: [id number]. Electronically Signed By: Ann Marie herring/:06/15/2022 15:07:13 Ultrasound BI-RADS: 1 Negative BI-RADS CATEGORY: (1) - 1 RECOMMENDATION: (ADDMAM) - Recommend additional mammographic views. recall n/a LATERALITY: (B)
== END 2022-06-15 14:07 | disposition home or self-care (01) ==
LOC: DI 14:06
PROVIDERS: ATTEND Obstetrics & Gynecology
DX: N64.4 Mastodynia (principal)

== ENCOUNTER 2022-10-23 10:24 | Emergency (ER) | payer OTHER ==
[2022-10-23 10:49] VITALS: BP 136/68
[2022-10-23 11:07] LABS: RAPID STREP SCREEN Negative (Negative)
--- NOTE | 2022-10-23 12:29 | ED Physician Documentation ---
PD HPI URI - Stated complaint Stated Complaint: HEAD/THROAT PX/EAR POPPING - Chief complaint Chief Complaint: Resp - History obtained from History obtained from: Patient - Additional information Additional information: This is a very nice 22-year-old female who presents with 3 days of cough, nasal congestion, sinus discomfort, runny nose, sore throat. No known sick contacts at home. She has not had a fever to her knowledge. She has had some ear pressure and discomfort and her head feels heavy sometimes. She is concerned for possible sinus infection. She has been using DayQuil and ibuprofen without significant relief. Review of Systems Ten Systems: 10 systems reviewed and negative (Except as noted per HPI) PD PAST MEDICAL HISTORY - Past Medical History Past Medical History: Yes Cardiovascular: None Respiratory: Asthma (childhood/seasonal) Neuro: None, Other (ADHD) Endocrine/Autoimmune: None GI: Chronic constipation ANCILLARY SERVICES MANAGER: Endometriosis : None HEENT: None Psych: Depression, Anxiety Musculoskeletal: None Derm: None - Past Surgical History Past Surgical History: Yes General: Colonoscopy /ANCILLARY SERVICES MANAGER: Endometrial ablation HEENT: Myringotomy (tubes) - Present Medications Home Medications: Ambulatory Orders Medication Instructions Recorded Confirmed Norethindrone [Ara] 0.35 mg PO DAILY 07/12/19 10/11/21 buPROPion HCL [Bupropion Xl] 150 mg PO DAILY 07/12/19 10/11/21 Dexmethylphenidate HCl [Focalin] 20 mg PO DAILY 10/11/21 10/11/21 Gabapentin [Neurontin] 400 mg PO TID 10/11/21 10/11/21 LORazepam [Ativan] 1 mg ORAL DAILY PRN 10/11/21 10/11/21 Metoclopramide [Reglan] 10 mg PO ACHS PRN 10/11/21 10/11/21 Phenobarb/Hyoscy/Atropine/Scop 16.2 mg PO ONCE 10/11/21 10/11/21 [Hxfkafqgz-Dkr-Yizfh-Scop Elix] lamoTRIgine [Lamictal] 200 mg PO DAILY PM 10/11/21 10/11/21 Amitriptyline [Elavil] 25 mg PO HS #30 tablet 11/20/21 Budesonide [Entocort EC] 9 mg PO DAILY #60 cap 11/20/21 Amox/Clav 875/125 [Augmentin 1 tablet PO Q12H 10 Days #20 tablet 11/23/21 875/125 Tab] methylPREDNISolone [Medrol Dose 1 each PO .PACKAGEINSTRUCTIONS 6 11/24/21 Pack] Days #1 each traMADol [Ultram] 100 mg PO Q6H PRN #20 tablet 11/24/21 - Allergies Allergies/Adverse Reactions: Allergies Allergy/AdvReac Type Severity Reaction Status Date / Time aripiprazole [From Abilify] Allergy Unknown Verified 11/24/21 13:45 hydrocodone Allergy Unknown Verified 10/23/22 10:49 quetiapine Allergy Unknown Verified 10/23/22 10:49 venlafaxine Allergy Unknown Verified 10/23/22 10:49 seasonal allergies Allergy Respiratory Uncoded 10/23/22 10:49 - Social History Does the pt smoke?: No Smoking Status: Never smoker Does the pt drink ETOH?: Yes Does the pt have substance abuse?: No - Immunizations Immunizations are current?: Yes - POLST Patient has POLST: No PD ED PE NORMAL - Vitals Vital signs reviewed: Yes - General General: Alert and oriented X 3, No acute distress, Well developed/nourished - HEENT HEENT: Ears normal, Moist mucous membranes, Pharynx benign - Neck Neck: Supple, no meningeal sign, No adenopathy - Cardiac Cardiac: RRR, No murmur - Respiratory Respiratory: No respiratory distress, Clear bilaterally - Abdomen Abdomen: Normal bowel sounds, Soft, Non tender, Non distended - Derm Derm: Normal color, Warm and dry, No rash - Neuro Neuro: Alert and oriented X 3 Eye Opening: Spontaneous Motor: Obeys Commands Verbal: Oriented GCS Score: 15 Results - Vitals Vitals: Vital Signs - 24 hr 10/23/22 10:46 Temperature 37.0 C Heart Rate 96 Respiratory 16 Rate Blood Pressure 136/68 H O2 Saturation 99 Oxygen O2 Source Room air - Labs Labs: Laboratory Tests 10/23/22 10:50 Group A Strep Rapid Negative PD MEDICAL DECISION MAKING - ED course Complexity details: considered differential, d/w patient ED course: This is a well-appearing 22-year-old female who presented with viral URI type symptoms including cough, congestion, nasal discomfort, ear pain. Her physical exam is reassuring, she has no signs of strep throat on exam, no signs of otitis media, no signs of severe bacterial sinusitis. I suspect this is a viral upper respiratory infection. Her strep test is negative and her viral panel is pendin g. She was advised that she can find her results on the patient portal or give us a call in a few hours otherwise treatment is supportive and we reviewed supportive care for viral URIs.I have also discussed return precautions if worsening or to follow-up with PCP if symptoms last longer than 14 days. Departure - Departure Disposition: 01 Home, Self Care Clinical Impression: Viral URI with cough Condition: Good Instructions: ED Viral Syndrome Comments: Presented with, on viral upper respiratory infection symptoms. We did do a viral panel and the results of that should be available on the patient portal in the next hour or a few hours. Treatment for allergies is supportive, plenty of rest, plenty of oral fluids, humidification, and you may use [id number] cough or cold medication if desired. Symptoms should improve in 7 to 10 days. If you have sinus pain that is worsening after 14 days or you develop other concerning symptoms, please follow-up with your primary doctor or return to the ER.
[2022-10-23 12:31] LABS: B. PARAPERTUSSIS- RESP PCR PAN NOT DETECTED; B. PERTUSSIS- RESP PCR PANEL NOT DETECTED; C. PNEUMONIAE- RESP PCR PANEL NOT DETECTED; CORONAVIRUS 229E-RESP PCR NOT DETECTED; CORONAVIRUS HKU1-RESP PCR NOT DETECTED; CORONAVIRUS NL63-RESP PCR NOT DETECTED; CORONAVIRUS OC43-RESP PCR NOT DETECTED; HUMAN METAPNEUMOVIRUS NOT DETECTED; INFLUENZA A- RESP PCR PANEL NOT DETECTED; INFLUENZA B - RESP PCR PANEL NOT DETECTED; M. PNEUMONIAE- RESP PCR PANEL NOT DETECTED; PARAINFLUENZA VIRUS 1 NOT DETECTED; PARAINFLUENZA VIRUS 2 NOT DETECTED; PARAINFLUENZA VIRUS 3 NOT DETECTED; PARAINFLUENZA VIRUS 4 NOT DETECTED; RHINOVIRUS/ENTEROVIRUS NOT DETECTED; RSV- RESP PCR PANEL NOT DETECTED; SARS-CoV-2 -RESP PCR PANEL NOT DETECTED
== END 2022-10-23 12:42 | disposition home or self-care (01) ==
LOC: ED 10:24
DX: J06.9 Acute upper respiratory infection, unspecified (principal); Z20.822 Contact with and (suspected) exposure to COVID-19
CPT/HCPCS: 87070; 87430; 87633; 99281; 99283

== ENCOUNTER 2023-11-07 09:54 | Day surgery (SDC) | payer OTHER ==
[~2023-11-07 09:54] MED LIST: ACETAMINOPHEN 325 MG TABLET PO ONE
[2023-11-07 10:21] LABS: HCG UR QUAL NEGATIVE
[2023-11-07] MEDS ORDERED: SILVER NITRATE APPLICATOR TOP ONE (10:29)
[2023-11-07] MEDS ORDERED: LEVONORGESTREL 20 MCG/24H IUD IY ONE (10:29)
[2023-11-07] MEDS ORDERED: LIDOCAINE-MPF 1% 30 ML VIAL ONE (10:30)
[2023-11-07] MEDS ORDERED: LACTATED RINGERS 1,000 ML IV ONE (10:30)
--- NOTE | 2023-11-07 11:20 | ANESTHESIA ---
Pre-Anesthesia VS, & Labs - Diagnosis endometriosis, cervical cancer screening - Procedure IUD removal/replacement, Pap smear Vital Signs: Temp Pulse Resp BP Pulse Ox O2 Flow Rate 36.5 C 89 20 113/66 98 11/07/23 10:14 11/07/23 10:14 11/07/23 10:14 11/07/23 10:14 11/07/23 10:14 Height: 5 ft 5 in Weight (kg): 66.7 kg Body Mass Index: 24.5 BMI Classification: Normal - NPO >8 hours - Is Patient ?: No Home Medications and Allergies Home Medications: Ambulatory Orders Albuterol Sulf [Ventolin Hfa Inhaler] 1 - 2 puffs INH Q4HR PRN 10/30/23 Drospirenone-Ethinyl Estradiol 1 tab PO DAILY 10/30/23 Escitalopram [Lexapro] 10 mg PO DAILY 10/30/23 Montelukast [Singulair] 10 mg PO QPM 10/30/23 Patanol 1 drops EACHEYE BID 10/30/23 Phenobarb/Hyoscy/Atropine/Scop [Mbmyedsvl-Xvqmf-Eyrcm-Scop Tab] 16.2 mg PO BID PRN 10/30/23 ondansetron HCL [Ondansetron HCl] 4 mg PO Q6H PRN 10/30/23 traMADol [Ultram] 50 mg PO Q6H PRN 10/30/23 Dexmethylphenidate HCl [Focalin] 10 mg PO DAILY 10/11/21 lamoTRIgine [Lamictal] 200 mg PO DAILY PM 10/11/21 Albuterol Sulf [Ventolin Hfa Inhaler] 1 - 2 puffs INH Q4HR PRN 10/30/23 Drospirenone-Ethinyl Estradiol 1 tab PO DAILY 10/30/23 Escitalopram [Lexapro] 10 mg PO DAILY 10/30/23 Montelukast [Singulair] 10 mg PO QPM 10/30/23 Patanol 1 drops EACHEYE BID 10/30/23 Phenobarb/Hyoscy/Atropine/Scop [Waxvxutoy-Qtbza-Uroqb-Scop Tab] 16.2 mg PO BID PRN 10/30/23 ondansetron HCL [Ondansetron HCl] 4 mg PO Q6H PRN 10/30/23 traMADol [Ultram] 50 mg PO Q6H PRN 10/30/23 Allergies/Adverse Reactions: Allergies Allergy/AdvReac Type Severity Reaction Status Date / Time aripiprazole [From Abilify] Allergy Unknown Verified 12/13/22 15:49 hydrocodone Allergy Unknown Verified 12/13/22 15:49 quetiapine Allergy Unknown Verified 12/13/22 15:49 venlafaxine Allergy Unknown Verified 12/13/22 15:49 seasonal allergies Allergy Respiratory Uncoded 12/13/22 15:49 Anes History & Medical History - Anesthetic History Anesthesia Complications: reports: Other-see comment (difficult to sedate) - Medical History Cardiovascular: reports: Murmur Pulmonary: reports: Asthma Gastrointestinal: reports: Chronic constipation, Other Urinary: reports: None Neuro: reports: None, Other (ADHD) Musculoskeletal: reports: None Endocrine/Autoimmune: reports: None Blood Disorders: reports: None Skin: reports: None Smoking Status: Never smoker Psychosocial: reports: Cannabis (once a month) History of Cancer?: No - Surgical History General: reports: Colonoscopy Eyes Ears Nose Throat (EENT): reports: Myringotomy (tubes) Gynecologic: reports: Endometrial ablation Exam General: Alert, Oriented x3, Cooperative, No acute distress Dental: WNL Mouth Openin Fingerbreadth Neck Mobility: Normal Mallampati classification: II Thyromental Distance: 4-6 cm Mental/Cognitive Status: Alert/Oriented X3, Normal for patient Plan Anesthesia Type: General Consent for Procedure(s) Verified and Reviewed: Yes Code Status: Attempt Resuscitation ASA classification: 2-Mild systemic disease Is this case an emergency?: No
--- NOTE | 2023-11-07 11:20 | HISTORY & PHYSICAL EXAMINATION ---
HPI - History of Present Illness HPI Comment/Other: HPI: Patient is a 23-year-old G0 presenting today for IUD removal and replacement and Pap smear. She has been unable to tolerate this in the past and would like sedation for the procedure. She is overall happy with her Kyleena and would like the same placed again. She has a long history of endometriosis and is currently on a good regimen that has her symptoms under control. All other symptoms reviewed and were negative except per HPI. PMH Endometriosis Slow transit constipation Pelvic floor outlet obstruction Bipolar 1 disorder Chronic pelvic pain PSH Tympanostomy Laparoscopy for endometriosis Colonoscopy Presacral neurectomy SH Denies tobacco, alcohol, drugs Family History Mother: Migraines, anxiety, allergies Father: Unknown history Allergies Abilify Quetiapine Venlafaxine Hydrocodone for itching Medications Lamotrigine Drospirenone/ethinyl estradiol Montelukast Cyclobenzaprine Tramadol Flonase Metoclopramide Kyleena Dex methylphenidate Physical exam: General: Alert, oriented, no acute distress Head: Normal cephalic atraumatic Eyes: PERRLA, extraocular motions intact. Respiratory: Normal rate of respiration. No accessory muscle use, normal respiratory effort. Cardiovascular: Regular rate and rhythm Abdomen: Nontender, nondistended Extremities: Normal range of motion Neuro: Oriented x3. Normal movements Psych: Appropriate mood and affect. Normal judgment and insight Plan 23-year-old G0 presenting to or exam under anesthesia, IUD removal and replacement, Pap smear. 1. Endometriosis: discussed the risk, benefits, alternatives of exam under anesthesia and IUD replacement or removal. She understands the risk of perforation. Limited risk of infection and no antibiotics are warranted. Patient would like to proceed with procedure as scheduled. 2. Cervical cancer screening: Pap smear under anesthesia. PMH/PSH - Past Medical History Cardiovascular: positive: Murmur Respiratory: positive: Asthma Neuro: positive: None, Other (ADHD) Endocrine/Autoimmune: positive: None GI: positive: Chronic constipation, Other IMPROVEMENT AUDITOR: positive: Endometriosis : positive: None HEENT: positive: None Psych: positive: Depression, Anxiety, Panic attacks Musculoskeletal: positive: None Derm: positive: None MRSA Hx?: No - Past Surgical History General: positive: Colonoscopy /IMPROVEMENT AUDITOR: positive: Endometrial ablation HEENT: positive: Myringotomy (tubes) Social & Family Hx - Social History Does the pt smoke?: No Smoking Status: Never smoker Does the pt drink ETOH?: Yes Does the pt have substance abuse?: No Substance Use and Type: Marijuana - POLST Patient has POLST: No Meds/Allgy - Home Medications Home Medications: Ambulatory Orders Medication Instructions Recorded Confirmed Dexmethylphenidate HCl [Focalin] 10 mg PO DAILY 10/11/21 11/07/23 lamoTRIgine [Lamictal] 200 mg PO DAILY PM 10/11/21 11/07/23 Albuterol Sulf [Ventolin Hfa 1 - 2 puffs INH Q4HR PRN 10/30/23 11/07/23 Inhaler] Drospirenone-Ethinyl Estradiol 1 tab PO DAILY 10/30/23 11/07/23 Escitalopram [Lexapro] 10 mg PO DAILY 10/30/23 11/07/23 Montelukast [Singulair] 10 mg PO QPM 10/30/23 11/07/23 Patanol 1 drops EACHEYE BID 10/30/23 10/30/23 Phenobarb/Hyoscy/Atropine/Scop 16.2 mg PO BID PRN 10/30/23 11/07/23 [Uggdllkwr-Koebt-Lcolc-Scop Tab] ondansetron HCL [Ondansetron HCl] 4 mg PO Q6H PRN 10/30/23 10/30/23 traMADol [Ultram] 50 mg PO Q6H PRN 10/30/23 11/07/23 - Allergies Allergies/Adverse Reactions: Allergies Allergy/AdvReac Type Severity Reaction Status Date / Time aripiprazole [From Abilify] Allergy Unknown Verified 12/13/22 15:49 hydrocodone Allergy Unknown Verified 12/13/22 15:49 quetiapine Allergy Unknown Verified 12/13/22 15:49 venlafaxine Allergy Unknown Verified 12/13/22 15:49 seasonal allergies Allergy Respiratory Uncoded 12/13/22 15:49 Exam - Vital Signs Vital Signs: Vital Signs x48h Temp Pulse Resp BP Pulse Ox 11/07/23 10:14 97.7 F 89 20 113/66 98 Results - Lab Results Other Lab Results: Lab Results x24hrs 11/07/23 Range/Units 10:10 Urine HCG, Qual NEGATIVE
[2023-11-07] MEDS ORDERED: fentaNYL 100 MCG/2 ML VIAL ONE (11:26)
[2023-11-07] MEDS ORDERED: MIDAZOLAM 2 MG/2 ML VIAL ONE (11:26)
[2023-11-07] MEDS ORDERED: PROPOFOL 500 MG/50 ML 500 MG/50 ML VIAL ONE (11:26)
[2023-11-07] MEDS ORDERED: KETOROLAC 30 MG/ML VIAL ONE (12:12)
[2023-11-07] MEDS ORDERED: LIDOCAINE 1% 50 ML MDV SUBQ ONE (12:20)
--- NOTE | 2023-11-07 12:25 | OPERATIVE REPORT ---
Operative Report - General Procedure Date: 11/07/23 Planned Procedure: Exam under anesthesia, Pap smear, IUD removal and replacement Pre-Op Diagnosis: Endometriosis, cervical cancer screening Procedure Performed: Exam under anesthesia, Pap smear, IUD removal and replacement Post Op Diagnosis: Endometriosis, cervical cancer screening - Procedure Note Primary Surgeon: Blake Burton MD Anesthesia Provider: Chrissy Castellon CRNA Anesthesia Technique: Other (IV General) Pathology: cervical cytology IV Fluids (mL): 500 Estimated Blood Loss (mL): 10 Urine Output (mL): 0 (voided) Complications: Patient was taken to the procedure room and placed in dorsal lithotomy position. Sterile speculum was used to visualize the cervix and Pap smear was collected. We then prepped for the sterile portion of the procedure. Hibiclens was used to clean the operative area. The patient was prepped and draped in the usual, sterile manner. A bivalve speculum was palced in the vagina and the cervix was visualized. The anterior lip the cervix was grasped with a single-tooth tenaculum. 2 mL of local anesthesia was used in each side of the cervix for paracervical block. No strings were visualized and these were not able to be removed with a Cytobrush or grasping with Alex forceps. The cervix was gently dilated to allow passage of the IUD hook and despite attempting to grasp it no strings were found. Again using the Alex forceps, I gently try grasping through the cervical canal and eventually modesta strings to the cervical os. These were regrasped with a Cardinal forceps and the IUD was removed with gentle traction. The uterus was sounded to 7 cm. The IUD was inserted through the cervical os and deployed to the first marker. After allowing it time to expand, is advanced to the fundus and deployed the remainder of the way. Strings were trimmed above the level of the hymen. All instruments were removed from vagina, and good hemostasis was noted. Patient tolerated procedure well and was taken to the PACU in good condition.
[2023-11-07] MEDS ORDERED: LEVONORGESTREL 14 MCG/24 HR IUD IY ONE (12:30)
[2023-11-07] MEDS ORDERED: traMADol 50 MG TABLET PO PRN (12:34)
[2023-11-07] MEDS ORDERED: traMADol 50 MG TABLET PO ONE (12:37)
[2023-11-07] MEDS ORDERED: ACETAMINOPHEN 500 MG TABLET PO ONE (13:00)
[2023-11-07 13:22] VITALS: BP 99/62; O2SAT 97
--- NOTE | 2023-11-07 13:33 | ANESTHESIA POST OP EVALUATION ---
Anesthesia Post Eval - Post Anesthesia Eval Vitals: Last Vital Signs Temp 36.2 C L 11/07/23 13:00 Pulse 76 11/07/23 13:00 Resp 16 11/07/23 13:00 BP 99/62 11/07/23 13:00 Pulse Ox 97 11/07/23 13:00 O2 Flow Rate CV Function Including HR & BP: Stable Pain Control: Satisfactory Nausea & Vomiting: Negative Mental Status: Baseline Respiratory Status: Airway Patent Hydration Status: Satisfactory Anesthesia Complications: None
== END 2023-11-07 09:55 | disposition home or self-care (01) ==
LOC: SDS 09:54
PROVIDERS: ATTEND Obstetrics & Gynecology
DX: Z30.433 Encounter for removal and reinsertion of intrauterine contraceptive device (principal); Z12.4 Encounter for screening for malignant neoplasm of cervix; N80.9 Endometriosis, unspecified; F41.9 Anxiety disorder, unspecified; F32.A Depression, unspecified; J45.909 Unspecified asthma, uncomplicated
CPT/HCPCS: 58300; 58301; 81025; A9270; J7120; J7301

== ENCOUNTER 2024-04-10 16:00 | Emergency (ER) | payer OTHER ==
[2024-04-10 16:28] LABS: BASOPHILS % (AUTO) 0.4 %; EOSINOPHILS # (AUTO) 0.1 10^3/uL (0.0-0.7); EOSINOPHILS % (AUTO) 1.2 %; HCT - HEMATOCRIT 40.9 % (37.0-47.0); HGB - HEMOGLOBIN 13.5 g/dL (12.0-16.0); LYMPHOCYTES # (AUTO) 2.4 10^3/uL (1.5-3.5); LYMPHOCYTES % (AUTO) 31.2 %; MEAN CORPUSCULAR HEMOGLOBIN 30.6 pg (27.0-31.0); MEAN CORPUSCULAR VOLUME 92.7 fL (81.0-99.0); MEAN PLATELET VOLUME 9.2 fL (7.9-10.8); MONOCYTES # (AUTO) 0.5 10^3/uL (0.0-1.0); MONOCYTES % (AUTO) 6.9 %; NEUTROPHILS # (AUTO) 4.5 10^3/uL (1.5-6.6); PLT - PLATELET COUNT 305 10^3/uL (130-450); RED BLOOD COUNT 4.41 10^6/uL (4.20-5.40); RED CELL DISTRIBUTION WIDTH 12.1 % (12.0-15.0); WHITE BLOOD COUNT 7.5 x10^3/uL (4.8-10.8)
[2024-04-10 16:45] LABS: ALBUMIN 4.4 g/dL (3.2-5.5); ALBUMIN/GLOBULIN RATIO 1.5 (1.0-2.2); BILIRUBIN,TOTAL 0.3 mg/dL (0.2-1.0); CALCIUM 9.8 mg/dL (8.5-10.3); CREATININE 0.7 mg/dL (0.6-1.3); TOTAL PROTEIN 7.4 g/dL (6.4-8.9)
--- NOTE | 2024-04-10 18:16 | ED Physician Documentation ---
PD HPI ABD PAIN - Stated complaint Stated Complaint: NAUSEA/ABD PX - Chief complaint Chief Complaint: Abd Pain - Additional information Additional information: 23-year-old female with complex past medical history including endometrial ablation which led to endometrial excision surgery which led to neurectomy. After this patient has had multiple issues with GI such as constipation and chronic abdominal pain with bloating and abdominal discomfort. Patient said that she went to [facility] where she participated in extensive physical therapy program to help with her bowel movements. Patient is here with her mother and is concerned of new/worsening right upper quadrant pain as well as left lower quadrant pain. Patient says that she has had no recent fevers or chills no nausea or vomiting but feels like she is having a hard time controlling her pain at home despite her bowel regimen. Patient and patient's mother would like to pursue an abdominal CT scan for concerns of some other possible acute emergent findings. PD PAST MEDICAL HISTORY - Past Medical History Past Medical History: Yes Cardiovascular: Murmur Respiratory: Asthma Neuro: None, Other Endocrine/Autoimmune: None GI: Chronic constipation, Other VENEER SPLICER: Endometriosis : None HEENT: None Psych: Depression, Anxiety, Panic attacks Musculoskeletal: None Derm: None - Past Surgical History Past Surgical History: Yes General: Colonoscopy /VENEER SPLICER: Endometrial ablation HEENT: Myringotomy (tubes) - Present Medications Home Medications: Ambulatory Orders Medication Instructions Recorded Confirmed Dexmethylphenidate HCl [Focalin] 10 mg PO DAILY 10/11/21 04/10/24 lamoTRIgine [Lamictal] 200 mg PO DAILY PM 10/11/21 04/10/24 Albuterol Sulf [Ventolin Hfa 1 - 2 puffs INH Q4HR PRN 10/30/23 04/10/24 Inhaler] Drospirenone-Ethinyl Estradiol 1 tab PO DAILY 10/30/23 04/10/24 Escitalopram [Lexapro] 10 mg PO DAILY 10/30/23 04/10/24 Montelukast [Singulair] 10 mg PO QPM 10/30/23 04/10/24 Patanol 1 drops EACHEYE BID 10/30/23 04/10/24 Phenobarb/Hyoscy/Atropine/Scop 16.2 mg PO BID PRN 10/30/23 04/10/24 [Gisxomlaa-Ayqke-Yjitd-Scop Tab] ondansetron HCL [Ondansetron HCl] 4 mg PO Q6H PRN 10/30/23 04/10/24 traMADol [Ultram] 50 mg PO Q6H PRN 10/30/23 04/10/24 Doxepin [SINEquan] 10 mg PO QPM 04/10/24 04/10/24 - Allergies Allergies/Adverse Reactions: Allergies Allergy/AdvReac Type Severity Reaction Status Date / Time aripiprazole [From Abilify] Allergy Unknown Verified 04/10/24 16:13 hydrocodone Allergy Unknown Verified 04/10/24 16:13 quetiapine Allergy Unknown Verified 04/10/24 16:13 venlafaxine Allergy Unknown Verified 04/10/24 16:13 seasonal allergies Allergy Respiratory Uncoded 04/10/24 16:13 - Social History Does the pt smoke?: No Smoking Status: Never smoker Does the pt drink ETOH?: Yes Does the pt have substance abuse?: No Substance Use and Type: Marijuana - Immunizations Immunizations are current?: Yes - POLST Patient has POLST: No PD ED PE NORMAL - Vitals Vital signs reviewed: Yes - General General: Alert and oriented X 3, No acute distress, Well developed/nourished - Abdomen Abdomen: Normal bowel sounds, Soft, Other (Mild bloating to lower abdomen with tenderness to the right upper quadrant.) - Back Back: No CVA TTP - Derm Derm: Normal color, Warm and dry, No rash - Psych Psych: Normal mood, Normal affect Results - Vitals Vitals: Vital Signs - 24 hr 04/10/24 04/10/24 04/10/24 16:13 18:49 19:25 Temperature 36.5 C 36.8 C Heart Rate 72 74 72 Respiratory 16 16 16 Rate Blood Pressure 128/82 H 121/75 115/73 O2 Saturation 100 100 96 04/10/24 04/10/24 20:17 21:01 Temperature 37.1 C 36.2 C L Heart Rate 75 84 Respiratory 16 16 Rate Blood Pressure 121/79 115/70 O2 Saturation 98 96 Oxygen O2 Source Room air - Labs Labs: Laboratory Tests 04/10/24 04/10/24 04/10/24 16:24 16:24 18:45 WBC 7.5 RBC 4.41 Hgb 13.5 Hct 40.9 MCV 92.7 MCH 30.6 MCHC 33.0 RDW 12.1 Plt Count 305 MPV 9.2 Neut # (Auto) 4.5 Lymph # (Auto) 2.4 [place] # (Auto) 0.5 Eos # (Auto) 0.1 Baso # (Auto) 0.0 Absolute Nucleated RBC 0.00 Nucleated RBC % 0.0 Sodium 136 Potassium 4.0 Chloride 103 Carbon Dioxide 26 Anion Gap 7.0 BUN 14 Creatinine 0.7 Estimated GFR (MDRD) 103 Glucose 92 Calcium 9.8 Total Bilirubin 0.3 AST 13 ALT 9 L Alkaline Phosphatase 35 L Total Protein 7.4 Albumin 4.4 Globulin 3.0 Albumin/Globulin Ratio 1.5 Lipase 22 Urine Color YELLOW Urine Clarity CLEAR Urine pH 6.0 Ur Specific [place] 1.020 Urine Protein NEGATIVE Urine Glucose (UA) NEGATIVE Urine Ketones NEGATIVE Urine Occult Blood NEGATIVE Urine Nitrite NEGATIVE Urine Bilirubin NEGATIVE Urine Urobilinogen 0.2 (NORMAL) Ur Leukocyte Esterase NEGATIVE Ur Microscopic Review NOT INDICATED Urine Culture Comments NOT INDICATED Urine HCG, Qual 04/10/24 18:45 WBC RBC Hgb Hct MCV MCH MCHC RDW Plt Count MPV Neut # (Auto) Lymph # (Auto) [place] # (Auto) Eos # (Auto) Baso # (Auto) Absolute Nucleated RBC Nucleated RBC % Sodium Potassium Chloride Carbon Dioxide Anion Gap BUN Creatinine Estimated GFR (MDRD) Glucose Calcium Total Bilirubin AST ALT Alkaline Phosphatase Total Protein Albumin Globulin Albumin/Globulin Ratio Lipase Urine Color Urine Clarity Urine pH Ur Specific [place] Urine Protein Urine Glucose (UA) Urine Ketones Urine Occult Blood Urine Nitrite Urine Bilirubin Urine Urobilinogen Ur Leukocyte Esterase Ur Microscopic Review Urine Culture Comments Urine HCG, Qual NEGATIVE - Rads (name of study) Abdomen pelvis CT without Relevant Findings:: Final report received, EMP independent interpretation of test, Other (No acute abnormalities found on abdomen pelvis CT, gallbladder unremarkable, no hydronephrosis, normal appendix.) PD Medical Decision Making - ED course ED course: 23-year-old female presents emergency department for right upper quadrant left lower quadrant pain. Differentials include but are not limited to small bowel obstruction, constipation, endometriosis flare, cholecystitis, atypical appendicitis. Labs have been complete for further evaluation and have found to be unremarkable, no leukocytosis no anemia normal electrolytes normal lipase. Urinalysis was also found to be unremarkable negative hCG, no leukocytes or nitrates concerning for possible urinary tract infection. Per the request the patient and her mother for further evaluation they would like to pursue an abdomen pelvis CT and there was no acute abnormalities visualized on CT no free fluid no hydronephrosis gallbladder is unremarkable. At this point in time not entirely confident what is causing patient's pain but I do believe is due to gas pain given patient's extensive bowel regimen that she has at home. Patient was told to follow-up with primary care provider for further evaluation given some [id number] recommendations on how to manage pain at home and ER return precautions given to patient and patient's mother. All questions answered patient is safe for discharge. Departure - Departure Disposition: Home, Self Care Clinical Impression: Abdominal bloating, Abdominal pain Instructions: ED Abdominal Pain Female Non-Specific Abdominal Pain Comments: Thank you for trusting us with your care. As we discussed we have completed your labs and we are not seeing any acute abnormalities or findings at this point in time aside from a mildly suppressed alk phos and ALT which is not something that warrants any intervention. We have also completed urinalysis which again did not reveal any acute abnormalities or findings. I am copying and pasting the CT results for you to read but we also completed a CT abdomen pelvis for further evaluation and again we are not seeing any acute abnormalities or findings at this point in time. Going home I would recommend taking things like simethicone as well as hot peppermint tea which can significantly alleviate bloating symptoms and continue with what you already have been doing lots of warm compresses and looking up different yoga poses to help with releasing some of this retained gas that is causing the bloating that you are experiencing. If you start to develop any fevers or chills or any other concerning emergent sy mptoms please come back to the emergency department immediately for further evaluation follow-up with your primary care provider about today's ER visit. Which seems to be recovery in the best time so sorry that you have been experiencing all this pain after endometriosis surgery. COMPARISON: CT abdomen pelvis 11/24/2021. FINDINGS: Image quality: Diagnostic. Lower chest: Unremarkable. Liver: No solid mass. Gallbladder: No radiopaque stones or wall thickening. Biliary tree: No intrahepatic or extrahepatic dilation, accounting for age. Spleen: No splenomegaly. Pancreas: No pancreatic ductal dilation. Adrenals: No adrenal nodule. Kidneys and ureters: No hydronephrosis. No renal cystic lesion which requires follow up. No solid mass. Stomach, bowel and peritoneum: No gastric or small bowel dilation. No abnormal wall thickening. No pathologic free fluid. The appendix is not dilated. Lymph nodes: No central or retroperitoneal adenopathy. Vessels: No infrarenal aortic aneurysm. Patent portal vein. PELVIS Reproductive organs: IUD in the uterus. Uterus is anteverted and deviated to the right. Bladder: No abnormal wall thickening, accounting for underdistention. No stone. Pelvic lymph nodes: No pelvic adenopathy by size criteria. Bones: No aggressive osseous abnormality. Other: No significant ventral or inguinal hernia. IMPRESSION: No acute abnormality identified. No free fluid. The appendix is not dilated. No hydronephrosis. Gallbladder is unremarkable. Forms: PCP List Discharge Date/Time: 04/10/24 21:03
[2024-04-10] MEDS ORDERED: iohexoL-300 100 ML VIAL ONE (18:42)
[2024-04-10 18:52] LABS: BILIRUBIN,URINE NEGATIVE (NEGATIVE); GLUCOSE, URINE (UA) NEGATIVE (NEGATIVE); KETONES,URINE (UA) NEGATIVE (NEGATIVE); LEUKOCYTE ESTERASE, URINE NEGATIVE (NEGATIVE); NITRITE,URINE NEGATIVE (NEGATIVE); OCCULT BLOOD,URINE NEGATIVE (NEGATIVE); PROTEIN,URINE NEGATIVE (NEGATIVE); UROBILINOGEN,URINE 0.2 (NORMAL) E.U./dL (NORMAL)
[2024-04-10 18:53] LABS: CLARITY,URINE CLEAR (CLEAR)
[2024-04-10 18:56] LABS: HCG UR QUAL NEGATIVE
[2024-04-10] MEDS: diphenhydrAMINE INJ 50 MG/ML VIAL IVP STA (18:57)
[2024-04-10] MEDS: SODIUM CHLORIDE 0.9% 1,000 ML IV ONE (18:57)
[2024-04-10] MEDS: ONDANSETRON 4 MG/2 ML VIAL IVP STA (18:57)
[2024-04-10] MEDS: HYDROmorphone 0.5 MG/0.5 ML SYRINGE IVP STA ×2 (18:57→20:00)
[2024-04-10] MEDS: iohexoL-300 100 ML VIAL IVP ONE (19:15)
[2024-04-10] MEDS: hydrOXYzine PAMOATE 25 MG CAPSULE PO STA (20:00)
--- NOTE | 2024-04-10 20:03 | CT Report ---
PROCEDURE: Abdomen/Pelvis W INDICATIONS: RUQ pain CONTRAST: 100ml [id number]. TECHNIQUE: After the administration of intravenous contrast, a CT scan of the abdomen and pelvis was performed. Images were recorded and evaluated at appropriate window settings. Reformats: coronal and sagittal. F or radiation dose reduction, the following was used: automated exposure control, adjustment of mA and /or kV according to patient size. COMPARISON: CT abdomen pelvis 11/24/2021. FINDINGS: Image quality: Diagnostic. Lower chest: Unremarkable. Liver: No solid mass. Gallbladder: No radiopaque stones or wall thickening. Biliary tree: No intrahepatic or extrahepatic dilation, accounting for age. Spleen: No splenomegaly. Pancreas: No pancreatic ductal dilation. Adrenals: No adrenal nodule. Kidneys and ureters: No hydronephrosis. No renal cystic lesion which requires follow up. No solid mas s. Stomach, bowel and peritoneum: No gastric or small bowel dilation. No abnormal wall thickening. No pa thologic free fluid. The appendix is not dilated. Lymph nodes: No central or retroperitoneal adenopathy. Vessels: No infrarenal aortic aneurysm. Patent portal vein. PELVIS Reproductive organs: IUD in the uterus. Uterus is anteverted and deviated to the right. Bladder: No abnormal wall thickening, accounting for underdistention. No stone. Pelvic lymph nodes: No pelvic adenopathy by size criteria. Bones: No aggressive osseous abnormality. Other: No significant ventral or inguinal hernia. IMPRESSION: No acute abnormality identified. No free fluid. The appendix is not dilated. No hydronephrosis. Gallbladder is unremarkable. Reviewed by: Jens Mix MD on 04/10/2024 8:02 PM PDT Approved by: Jens Mix MD on 04/10/2024 8:02 PM PDT Station ID: [id number]
[2024-04-10 21:05] VITALS: BP 115/70; O2SAT 96
== END 2024-04-10 21:03 | disposition home or self-care (01) ==
LOC: ED 16:00
DX: R10.11 Right upper quadrant pain (principal); R10.32 Left lower quadrant pain; R14.0 Abdominal distension (gaseous)
CPT/HCPCS: 36415; 74177; 80053; 81003; 81025; 83690; 85025; 96374; 96375; 99284; 99285; A9270; J1170; J1200; Q9967; 81001; 87086

== ENCOUNTER 2024-04-25 07:27 | Outpatient (CLI) | payer OTHER ==
--- NOTE | 2024-04-25 13:50 | Ultrasound Report ---
PROCEDURE: Pelvic w/Transvaginal INDICATIONS: ABD PAIN, HIGH TONE PELVIC FLOOR TECHNIQUE: Real-time scanning was performed of the pelvic organs, with image documentation. Additional endovagi nal scanning was necessary due to incomplete visualization of the adnexal and endometrial structures by transabdominal scanning. COMPARISON: None. FINDINGS: Uterus: Uterus is anteverted and normal in size at 6.8 x 3.0 x 3.3 cm. The myometrium is homogeneou s. The endometrium measures 3 mm in combined thickness. IUD is present in appropriate location. Ovaries: The right ovary measures 2.0 x 1.2 x 1.1 cm, with a calculated ovarian volume of 1.4 cc. T he left ovary measures 1.6 x 0.9 x 0 point cm, with a calculated ovarian volume of 0.6 cc. The ovari es have a normal sonographic appearance. Less than 12 follicles can be seen in each ovary. No adnex al masses are seen. No cystic lesions measuring greater than 3 cm. Other: No pathologic free abdominal or pelvic fluid. IMPRESSION: IUD in appropriate location. Otherwise, unremarkable. Reviewed by: Shelia Bryan MD on 04/25/2024 1:49 PM PDT Approved by: Shelia Bryan MD on 04/25/2024 1:49 PM PDT Station ID: [id number]
--- NOTE | 2024-04-25 13:54 | Ultrasound Report ---
PROCEDURE: Abdomen Limited INDICATIONS: ABD PAIN TECHNIQUE: Real-time focused scanning was performed of the abdomen, with image documentation. COMPARISONS: CT abdomen pelvis 04/10/2024 FINDINGS: Liver: Liver is normal in size and homogeneous in echotexture. Gallbladder: No gallstones, sludge, wall thickening or pericholecystic edema. Biliary ducts: Intrahepatic bile ducts are non-dilated. Extrahepatic bile duct caliber measures 3 m m. Normal is 6-7 mm or less in diameter, or 10 mm or less post-cholecystectomy. Pancreas: Visualized portions of the pancreas are sonographically normal. Right kidney: Right kidney measures 9.4 cm long. No nephrolithiasis. Mild appearance of prominent re nal pelvis. No solid masses. No complex renal cystic lesions which require follow-up. IVC: Intrahepatic inferior vena cava is patent. Miscellaneous: No free abdominal fluid. IMPRESSION: Mild prominence of the right renal pelvis. This was not present on prior exam. It is overall indeterm inate interval follow-up may be obtained to document potential hydronephrosis/resolution. Reviewed by: Shelia Bryan MD on 04/25/2024 1:52 PM PDT Approved by: Shelia Bryan MD on 04/25/2024 1:52 PM PDT Station ID: [id number]
== END 2024-04-25 07:28 | disposition home or self-care (01) ==
LOC: DI 07:27
PROVIDERS: ATTEND Physician Assistant Medical
DX: M70.98 Unspecified soft tissue disorder related to use, overuse and pressure other (principal); N80.9 Endometriosis, unspecified; R10.84 Generalized abdominal pain; K58.9 Irritable bowel syndrome, unspecified; Z97.5 Presence of (intrauterine) contraceptive device